=== PATIENT | female | born 1975 | race Caucasian/White ===

== ENCOUNTER 2019-07-09 14:00 | Outpatient (RCR) | payer MEDICAID, SELFPAY | END 2019-07-29 14:25 | disposition home or self-care (01) | LOC: PT.CARL 14:00 | PROVIDERS: Visit Provider Nurse Practitioner Family | DX: M54.5 Low back pain (principal) | CPT/HCPCS: 97014; 97110; 97163; G0283 ==

== ENCOUNTER 2020-07-29 11:33 | Emergency (ER) | payer MEDICAID, SELFPAY ==
[2020-07-29 12:32] VITALS: BP 131/87; PULSE 84; RESP 20; TEMP 37.1; O2SAT 97; BMI 29.0
--- NOTE | 2020-07-29 12:38 | HMH.EDUTC ---
[facility] [place] Clinical Impression: Exposure to COVID-19 virus URI (upper respiratory infection) Qualifiers: URI type: unspecified URI Qualified Code(s): J06.9 - Acute upper respiratory infection, unspecified Contact dermatitis Qualifiers: Contact dermatitis type: unspecified Contact dermatitis trigger: unspecified trigger Qualified Code(s): L25.9 - Unspecified contact dermatitis, unspecified cause Disposition: Home, Self-Care Condition on Discharge: Good Instructions: Contact Dermatitis, DI for Sinusitis, DI for Cough -- Adult, DI for Contact Dermatitis, Azithromycin, Preventing the Spread of Coronavirus Discharge Instructions Additional Instructions: *Monitor Temp, Over the counter Motrin or Tylenol as directed/as needed Tylenol every 4 hours and Motrin every 6 hours (as long as your family doctor has told you that you can take it) for fever or pain. and straight to ER if unable to lower temp less than 101.0 after medication given *Warm salt water gargles may help to soothe the throat *Throat Lozenges *Warm fluids like tea with honey may help to soothe the throat *Sleep elevated *Humidifier/Vaporizer Apply hydrocortisone to area as prescribed Follow up IMMEDIATELY for new or worsening symptoms or no Noticeable improvement over the next 48-72 hours. 911 for difficulty breathing or swallowing ? Humidifier/vaporizer or hot steamy shower ? Inhaler every 4-6 hours as needed like we discussed. If unsure how to use it, ask pharmacist to demonstrate how. Should help open airways and improve cough, wheezing, and shortness of breath You was tested for today for COVID19 your test result should be back in the next 24-48 hours, you may call to the [facility] later today or tomorrow to see if your test results are back and the result [phone] [facility] hours are 9am-9pm You was given a handout with instructions for Self Quarantine and Self isolation for while you wait on test results and what to do if they are positive If you are positive the Health Dept will be contacting you also Prescriptions: Albuterol Sulfate [Proventil-HFA 90mcg/puff Inh] 1 - 2 puffs IH Q4HP PRN #1 inh PRN Reason: Shortness Of Breath Transmission Status: Received by [facility] Hydrocortisone [Hydrocortisone 2.5% Cream 28gm Tube] 1 applicatio TOPICAL BID #1 tube Transmission Status: Received by [facility] Azithromycin [Z-Teo 250mg Tab] 250 mg PO DIRECTED #6 tab Transmission Status: Received by [facility] Referrals: Jana Bush PA [Primary Care Provider] - As needed Forms: Work/School Release Time of Disposition: 12:56 Medical Decision Making - Cesar Inquiry Pt receiving controlled substance: No Cesar was queried for this patient: No Vital Signs: 07/29/20 12:32 07/29/20 13:10 Temperature 98.8 F 98.8 F Temperature Source Oral Oral Pulse Rate 84 Pulse Rate [Radial] 84 Respiratory Rate 20 20 Blood Pressure 131/87 Blood Pressure [Right Arm] 131/87 Blood Pressure Mean [Right Arm] 101 Blood Pressure Source Automatic Cuff Blood Pressure Source [Right Arm] Automatic Cuff Blood Pressure Position Sitting Blood Pressure Position [Right Arm] Sitting 02 Sat by Pulse Oximetry 97 Oxygen Delivery Method Room Air Room Air Orders (Tests/Meds): ED MEDICATIONS Discontinued Medications Generic Name Dose Route Start Last Admin Trade Name Freq PRN Reason Stop Dose Admin Methylprednisolone Sodium Succinate 125 mg 07/29/20 12:42 07/29/20 12:49 Methylprednisolone Sod Succ 125mg Vial IM 07/29/20 12:43 125 mg ONCE ONE Administration ORDERS Category Date Time Status Covid-19 Nasal PCR Sendout [facility] 07/29/20 12:25 [place] [facility] [place] - General Stated complaint: covid exposure Time Seen by Provider: 07/29/20 12:38 Mode of Arrival: Ambulatory Source of Information: Patient Limitations: No Limitations Description of Symptoms (Recalled from Triage Doc. by RN): cough, nausea, diarrhea MARNI
[2020-07-29 13:10] VITALS: BP 131/87; PULSE 84; RESP 20; TEMP 37.1; O2SAT 97
[2020-07-30 10:31] LABS: Covid-19 Nasal PCR Sendout Lex NOT DETECTED
== END 2020-07-29 13:10 | disposition home or self-care (01) ==
PROVIDERS: Emergency Provider Nurse Practitioner; PCP Nurse Practitioner Family
DX: Z20.828 Contact with and (suspected) exposure to other viral communicable diseases (principal); J06.9 Acute upper respiratory infection, unspecified; L25.9 Unspecified contact dermatitis, unspecified cause; Z88.0 Allergy status to penicillin
CPT/HCPCS: 96372; 99202; U0004

== ENCOUNTER → 2021-10-12 11:21 | Outpatient (CLI) | payer MEDICAID, SELFPAY ==
[2021-10-13 09:35] LABS: Covid-19 Nasal PCR Sendout Lex NOT DETECTED
== END ==
PROVIDERS: Visit Provider Nurse Practitioner
DX: Z20.822 Contact with and (suspected) exposure to COVID-19 (principal)
CPT/HCPCS: C9803; U0004; U0005

== ENCOUNTER 2022-08-25 15:54 | Emergency (ER) | payer MEDICAID, SELFPAY ==
[2022-08-25 16:30] VITALS: BP 114/86; PULSE 86; RESP 19; TEMP 36.8; O2SAT 98; BMI 26.2
--- NOTE | 2022-08-25 16:48 | EXP.UTC ---
Discharge Plan Disposition Patient Disposition: Home, Self-Care Condition: Good Prescriptions Prescriptions: New prednisone [prednisone] 20 mg tablet 20 mg PO BID 5 Days Qty: 10 0RF naproxen 500 mg tablet 500 mg PO BID 10 Days Qty: 20 0RF No Action azithromycin 250 MG tablet 250 mg PO DIRECTED Qty: 6 0RF Rx Instructions: Take two (2) tablets on day #1, then one (1) tablet day #2 thru #5 hydrocortisone 28 GM cream 1 applicatio TOPICAL BID Qty: 1 0RF albuterol sulfate 200 PUFFS HFA aerosol inhaler 1 - 2 puffs IH Q4HP PRN (Reason: Shortness Of Breath) Qty: 1 0RF Referrals Follow up/Referrals: Yajaira Soriano APRN [Primary Care Provider] - See instructions Activity Restrictions/Add. Instructions Additional Instructions/Restrictions: Wear splint as often as possible Take Naproxen, Prednisone with food - these medicines will hopefully decrease inflammation If not improving, follow up with PCP for additional testing Clinical Impressions Clinical Impression: Hand pain, right, Swelling of right hand Instructions Patient Instructions: DI for Hand Pain Discharge ED [place]rysta [place] [facility] [place] General Stated complaint: RT wrist pain and numbness Mode of Arrival: Ambulatory Source of Information: Patient Limitations: No Limitations Time Seen by Provider: 08/25/22 16:50 Description of Symptoms (Recalled from Triage Doc. by RN): PATIENT C/O RIGHT HAND SWELLING WITH DECREASED ROM IN FINGERS SINCE LAST NIGHT HEENT Symptoms (Recalled from RN notes): No Resp Symptoms (Recalled from RN notes): No Skin Symptoms (Recalled from RN notes): No MS Symptoms (Recalled from RN notes): Yes Functional Status (Recalled from RN notes): WNL History of Present Illness Provider Complaint: Right hand pain and swelling X 1 day. Started after packing and moving. No injury. Hand is stiff, swollen and she cannot bend her fingers. No known history of carpal tunnel. No known history of arthritis/autoimmune disorder. Onset (ago): day(s) (1) Location: right and upper extremity Radiation: non-radiation Severity: moderate Relieving factors: none Exacerbating factors: none Associated symptoms: denies other symptoms Treatments prior to arrival: splint Related Data Previous Rx's Medication Instructions Recorded albuterol sulfate 90 mcg/actuation 1 - 2 puffs IH Q4HP PRN Shortness 07/29/20 aerosol inhaler Of Breath #1 inh azithromycin 250 mg tablet 250 mg PO DIRECTED #6 tabs 07/29/20 hydrocortisone 2.5 % topical cream 1 applicatio topical BID #1 tube 07/29/20 naproxen 500 mg tablet 500 mg PO BID 10 days #20 tabs 08/25/22 prednisone 20 mg tablet 20 mg PO BID 5 days #10 tabs 08/25/22 Allergies Allergy/AdvReac Type Severity Reaction Status Date / Time cephalexin [From Keflex] Allergy Verified 08/25/22 16:48 paroxetine Allergy Verified 08/25/22 16:48 Penicillins Allergy Verified 08/25/22 16:48 propoxyphene Allergy Verified 08/25/22 16:48 tramadol Allergy Verified 08/25/22 16:48 Worker's Comp Is this a Worker's Comp case?: No [facility] Disclaimer: The information contained in this section may have been updated after the patient was seen, as this information can be updated by other users. Medical History (Updated 08/25/22 @ 17:02 by CHRISTINE Motley) Seizure disorder Surgical History (Updated 08/25/22 @ 16:47 by Carmen oLve RN) History of section History of hysterectomy History of tympanostomy tube placement Social History (Updated 08/25/22 @ 16:47 by Carmen Love RN) Smoking Status: Current every day smoker second hand exposure: Yes alcohol intake: never current occupational status: other Travel in the last 8 weeks: None ROS Obtained: Yes All systems reviewed & no additional complaints except as documented Musculoskeletal Musculoskeletal: Reports arthralgias, Reports joint stiffness and Reports joint swelling
[2022-08-25 16:55] VITALS: BP 114/86; PULSE 86; RESP 19; TEMP 36.8; O2SAT 98
== END 2022-08-25 17:20 | disposition home or self-care (01) ==
PROVIDERS: Emergency Provider Physician Assistant; PCP Nurse Practitioner Family
DX: M79.89 Other specified soft tissue disorders (principal); M79.641 Pain in right hand
CPT/HCPCS: 99212; G0463

== ENCOUNTER 2022-09-30 20:06 | Emergency (ER) | payer MEDICAID, SELFPAY ==
[2022-09-30 20:07] VITALS: BP 108/83; PULSE 65; RESP 16; TEMP 36.8; O2SAT 100; BMI 21.9
--- NOTE | 2022-09-30 20:30 | XR_ITS ---
PROCEDURE INFORMATION: Exam: XR Right Foot Exam date and time: 09/30/2022 8:42 PM Age: 46 years old Clinical indication: Pain; Foot; Right; Additional info: Accident TECHNIQUE: Imaging protocol: Radiologic exam of the Right foot. Views: 1 or 2 views. COMPARISON: No relevant prior studies available. FINDINGS: Bones/joints: Nondisplaced fracture of the 5th metatarsal diaphysis. Soft tissues: Soft tissue edema about the fracture site. IMPRESSION: Nondisplaced fracture of the 5th metatarsal diaphysis.
--- NOTE | 2022-09-30 20:30 | XR_ITS ---
PROCEDURE INFORMATION: Exam: XR Right Ankle Exam date and time: 09/30/2022 8:45 PM Age: 46 years old Clinical indication: Pain; Ankle; Right; Additional info: Accident TECHNIQUE: Imaging protocol: Radiologic exam of the Right ankle. Views: 1 or 2 views. COMPARISON: CR Foot R 09/30/2022 8:42 PM FINDINGS: Bones/joints: Nondisplaced fracture of the 5th metatarsal diaphysis. Soft tissues: Soft tissue edema about the foot the. IMPRESSION: Nondisplaced fracture of the 5th metatarsal diaphysis.
--- NOTE | 2022-09-30 20:49 | PC.NURSE ---
Pt gone to RAD via wheelchair
--- NOTE | 2022-09-30 20:57 | PC.NURSE ---
Pt back from RAD
--- NOTE | 2022-09-30 20:59 | PC.NURSE ---
Pt provided with donovan
--- NOTE | 2022-09-30 21:42 | HMH.EDLOEX ---
Discharge Plan Disposition Patient Disposition: Home, Self-Care Prescriptions Prescriptions: New ketorolac 10 mg tablet 10 mg PO Q8H PRN (Reason: pain) 3 Days Qty: 10 0RF No Action azithromycin 250 MG tablet 250 mg PO DIRECTED Qty: 6 0RF Rx Instructions: Take two (2) tablets on day #1, then one (1) tablet day #2 thru #5 hydrocortisone 28 GM cream 1 applicatio TOPICAL BID Qty: 1 0RF albuterol sulfate 200 PUFFS HFA aerosol inhaler 1 - 2 puffs IH Q4HP PRN (Reason: Shortness Of Breath) Qty: 1 0RF prednisone [prednisone] 20 mg tablet 20 mg PO BID 5 Days Qty: 10 0RF naproxen 500 mg tablet 500 mg PO BID 10 Days Qty: 20 0RF Referrals Follow up/Referrals: Yajaira Soriano APRN [Primary Care Provider] - See instructions Clinical Impressions Clinical Impression: Foot fracture, right Instructions Patient Instructions: DI for Foot Fracture Discharge ED Provider: Ganga Ibarra Lower Extremity Injury HPI General Chief Complaint: Extremity Injury, Lower Stated Complaint: AO09/30/22 RT foot inj Time Seen by Provider: 09/30/22 21:42 Mode of Arrival: Wheelchair Source of Information: Patient and Medical Record Limitations: No Limitations Description of Symptoms (Recalled from ER Triage Doc. by RN): pt states was shutting a door using her rt foot and it twisted. pt c/o rt ankle pain History of Present Illness HPI Narrative: acute injury to rt foot ankle /foot yesterday with pain and swelling and dec wt bearing MD complaint: ankle injury and foot injury Onset (ago): day(s) Injury: Right: ankle and foot Type of Injury: eversion Place: home Severity: moderate Context: walking Associated symptoms: unable to bear weight Other symptoms: none Related Data Previous Rx's Medication Instructions Recorded albuterol sulfate 90 mcg/actuation 1 - 2 puffs IH Q4HP PRN Shortness 07/29/20 aerosol inhaler Of Breath #1 inh azithromycin 250 mg tablet 250 mg PO DIRECTED #6 tabs 07/29/20 hydrocortisone 2.5 % topical cream 1 applicatio topical BID #1 tube 07/29/20 naproxen 500 mg tablet 500 mg PO BID 10 days #20 tabs 08/25/22 prednisone 20 mg tablet 20 mg PO BID 5 days #10 tabs 08/25/22 ketorolac 10 mg tablet 10 mg PO Q8H PRN pain 3 days #10 09/30/22 tabs Allergies Allergy/AdvReac Type Severity Reaction Status Date / Time cephalexin [From Keflex] Allergy Verified 08/25/22 16:48 paroxetine Allergy Verified 08/25/22 16:48 Penicillins Allergy Verified 08/25/22 16:48 propoxyphene Allergy Verified 08/25/22 16:48 tramadol Allergy Verified 08/25/22 16:48 PFSH PFS Disclaimer: The information contained in this section may have been updated after the patient was seen, as this information can be updated by other users. Medical History (Updated 09/30/22 @ 21:57 by Ganga Ibarra MD) Seizure disorder Surgical History (Updated 08/25/22 @ 16:47 by Carmen Love RN) History of section History of hysterectomy History of tympanostomy tube placement Social History (Updated 08/25/22 @ 16:47 by Carmen Love RN) Smoking Status: Current every day smoker second hand exposure: Yes alcohol intake: never current occupational status: other Travel in the last 8 weeks: None ROS Obtained: Yes All systems reviewed & no additional complaints except as documented Physical Exam General General appearance: alert Head Head exam: normocephalic Eye Eye exam: Present PERRL and EOMI ENT ENT exam: Present mucous membranes moist Neck Neck exam: Present trachea midline Respiratory Respiratory exam: Absent respiratory distress Cardiovascular Cardiovascular exam: Present regular rate Expanded Lower Extremity Exam Right: Lower leg exam: Present normal inspection and Achilles tendon intact Ankle exam: Present tenderness and swelling; Absent full ROM Foot/toe exam: Present tenderness, swelling and tenderness at base of 5th metatarsal
[2022-09-30 21:52] VITALS: BP 115/78; PULSE 61; RESP 16; TEMP 36.8; O2SAT 100
== END 2022-09-30 22:03 | disposition home or self-care (01) ==
PROVIDERS: Emergency Provider Emergency Medicine; PCP Nurse Practitioner Family
DX: S92.354A Nondisplaced fracture of fifth metatarsal bone, right foot, initial encounter for closed fracture (principal); X50.0XXA Overexertion from strenuous movement or load, initial encounter
CPT/HCPCS: 29515; 73600; 73620; 99283; 99284

== ENCOUNTER → 2022-10-24 14:23 | Outpatient (CLI) | payer MEDICAID, SELFPAY ==
--- NOTE | 2022-10-24 14:28 | XR_ITS ---
FINAL REPORT CLINICAL HISTORY: R FOOT FX FINDINGS: AP, oblique and lateral views of the right foot were obtained. Comparison is made to an exam dated September 30, 2022. There is a spiral fracture of the 5th metatarsal that has not significantly changed in alignment. There may be minimal callus formation. There is no new abnormality. The joint spaces are preserved. There is persistent dorsal soft tissue edema. IMPRESSION: Fifth metatarsal fracture with possible minimal callus formation. Reviewed, Interpreted and Dictated by Mouna Be MD Transcribed by Gold Bro Authenticated and [facility]
== END ==
PROVIDERS: PCP Physician Assistant; Visit Provider Physician Assistant
DX: S92.901A Unspecified fracture of right foot, initial encounter for closed fracture (principal)
CPT/HCPCS: 73630

== ENCOUNTER 2022-10-24 14:46 | Outpatient (RCR) | payer MEDICAID, SELFPAY | END 2022-10-24 16:00 | disposition home or self-care (01) | LOC: PT 14:46 | PROVIDERS: Visit Provider Physician Assistant | DX: S92.351A Displaced fracture of fifth metatarsal bone, right foot, initial encounter for closed fracture (principal); M79.671 Pain in right foot | CPT/HCPCS: 97760 ==

== ENCOUNTER → 2022-11-03 11:42 | Outpatient (CLI) | payer MEDICAID, SELFPAY ==
--- NOTE | 2022-11-03 11:47 | XR_ITS ---
FINAL REPORT CLINICAL HISTORY: Left wrist pain COMPARISON: None FINDINGS: LEFT WRIST Three views demonstrate no acute fracture or dislocation. The visualized joint spaces are normally aligned. The soft tissues are unremarkable. IMPRESSION: No acute bony abnormality. Reviewed, Interpreted and Dictated by Scott Vazquez III, MD Transcribed by Consuelo Dang Authenticated and [facility]
--- NOTE | 2022-11-03 11:47 | XR_ITS ---
FINAL REPORT CLINICAL HISTORY: Right wrist pain COMPARISON: None FINDINGS: RIGHT WRIST Three views demonstrate no acute fracture or dislocation. The visualized joint spaces are normally aligned. The soft tissues are unremarkable. IMPRESSION: No acute bony abnormality. Reviewed, Interpreted and Dictated by Scott Vazquez III, MD Transcribed by Consuelo Dang Authenticated and [facility]
== END ==
PROVIDERS: PCP Physician Assistant; Visit Provider Orthopaedic Surgery
DX: M25.531 Pain in right wrist (principal); M25.532 Pain in left wrist
CPT/HCPCS: 73110

== ENCOUNTER 2022-11-10 12:37 | Outpatient (RCR) | payer MEDICAID, SELFPAY | END 2022-11-10 13:30 | disposition home or self-care (01) | LOC: PT 12:37 | PROVIDERS: Visit Provider Orthopaedic Surgery | DX: G56.03 Carpal tunnel syndrome, bilateral upper limbs (principal) ==

== ENCOUNTER → 2022-11-30 14:28 | Outpatient (CLI) | payer MEDICAID, SELFPAY ==
--- NOTE | 2022-11-30 14:32 | XR_ITS ---
FINAL REPORT CLINICAL HISTORY: pre op orthopedic surgery. Patient is a smoker. she coughs some. FINDINGS: 2 views of the chest were obtained . The heart is normal in size. The mediastinum is within normal limits. The lungs are clear. There is no pneumothorax. Osseous structures are unremarkable. IMPRESSION: No acute cardiopulmonary process. Reviewed, Interpreted and Dictated by Bryan Veronica MD Transcribed by Angélica Duncan Authenticated and [facility]
[2022-11-30 14:52] LABS: Basophils # 0.1 K/mm3 (0-0.2); Eosinophils # 0.2 K/mm3 (0.0-0.4); Eosinophils % 1.3 % (0.1-12.0); Hematocrit 39.9 % (37.0-47.0); Hemoglobin 13.2 g/dL (12.2-16.2); Lymphocytes # 4.2 K/mm3 (0.7-4.5); Lymphocytes % 37.5 % (10-50); Mean Corpuscular Hemoglobin 28.6 pg (27.0-31.2); Mean Corpuscular Volume 86.5 fl (81-99); Mean Platelet Volume 7.7 fl (7.4-10.4); Monocytes # 0.4 K/mm3 (0.1-1.0); Monocytes % 3.6 % (1.7-9.3); Neutrophils # 6.3 K/mm3 (1.8-7.8); Neutrophils % 56.6 % (37.0-80.0); Platelet Count 352 K/mm3 (142-424); Red Blood Count 4.61 M/mm3 (4.20-5.40); Red Cell Distribution Width 14.8 % (11.5-17.5); White Blood Count 11.2 K/mm3 (4.8-10.8)
[2022-11-30 15:15] LABS: Chloride 106 mmol/L (98-107); Potassium 3.6 mmoL/L (3.5-5.1); Sodium 139 mmol/L (136-145)
[2022-11-30 15:17] LABS: Alanine Aminotransferase 18 U/L (12-78); Aspartate Amino Transferase 19 U/L (14-36); Blood Urea Nitrogen 12 mg/dl (7-17); Estimated Glomerular Filt Rate 89 ml/min (>60); GFR (African American) 108 ML/MIN (>60)
[2022-11-30 15:18] LABS: Albumin Level 3.7 g/dl (3.5-5.0); Albumin/Globulin Ratio 1.4 (1.1-1.8); Alkaline Phosphatase 110 U/L (38-126); Anion Gap 9.6 mEq/L (5-15); Calcium 8.6 mg/dl (8.4-10.2); Carbon Dioxide 27 mmol/L (22.0-30.0); Globulin 2.6 g/dL (1.3-3.2); Glucose 95 mg/dl (74-100); Total Protein,Serum 6.3 g/dl (6.3-8.2)
[2022-11-30 15:19] LABS: Bilirubin,Total 0.1 mg/dl (0.2-1.3)
== END ==
PROVIDERS: PCP Physician Assistant; Visit Provider Orthopaedic Surgery
DX: Z01.818 Encounter for other preprocedural examination (principal); G56.03 Carpal tunnel syndrome, bilateral upper limbs
CPT/HCPCS: 36415; 71046; 80053; 85025

== ENCOUNTER 2022-12-01 06:10 | Day surgery (SDC) | payer MEDICAID, SELFPAY ==
[2022-11-30 12:27] VITALS: BMI 22.4
[2022-12-01 06:24] VITALS: BP 102/52; PULSE 88; RESP 18; TEMP 36.5; O2SAT 96
--- NOTE | 2022-12-01 08:02 | P.PN_ITS ---
[facility] Disclaimer: The information contained in this section may have been updated after the patient was seen, as this information can be updated by other users. Medical History Carpal tunnel syndrome Neuropathy Seizure disorder Sleep apnea Surgical History History of section History of hysterectomy History of tympanostomy tube placement Hx of hand surgery Family History Other No significant family history Social History (Updated 12/01/22 @ 06:35 by Paulette Singh RN) Smoking Status: Current every day smoker tobacco type: cigarettes packs per day: 1 years smoked: 20 second hand exposure: Yes alcohol intake: never substance use type: denies use current occupational status: disabled Travel in the last 8 weeks: None [facility] Anesthesia Checklist Patient Identification Patient Identification: Arm Band and Verbal (Name & ) Structural Data Admitted From: Home Planned Operative Procedure/s: Right Carpal Tunnel Repair Consent for Planned Operative Procedure(s) Verified: Yes Verified Documents: Surgical Consent NPO Status Verified Time NPO: 20:00 Additional verifications Anesthesia Reactions: No Hx Blood Transfusions: No Blood Transfusion Reaction: No Airway Assessment C-Spine Mobility Assessed: Yes TMJ Mobility Assessed: Yes Neurological Assessment Level of Consciousness: Awake, Alert and Appropriate Anesthesia Plan Anesthesia Risk discussed: Yes ASA Class: III Anesthesia Type: MAC
[2022-12-01 08:26] VITALS: TEMP 43
[2022-12-01 08:34] VITALS: BP 107/73; PULSE 63; RESP 17; TEMP 36.2; O2SAT 98
[2022-12-01 08:44] VITALS: BP 117/71; PULSE 77; RESP 15; O2SAT 100
--- NOTE | 2022-12-01 08:47 | EXP.OP.NOTE ---
Date of procedure: 12/01/22 Pre-op Diagnosis:: Right carpal tunnel syndrome Post-op Diagnosis:: Same Procedure performed:: Right endoscopic carpal tunnel release Surgeon:: Sudeep Naik JR, MD [employer] INSTRUCTOR:: John Rubin Anesthesia: MAC Estimated blood loss (mL): 3 Clinical Note:: 47-year-old female with right carpal tunnel syndrome refractory to conservative measures. She had thenar wasting, positive Tinel sign at the wrist. She complained of numbness and tingling which woke her up at night. Having failed prior conservative measures she was interested in more durable intervention. I recommended right endoscopic carpal tunnel release. She was amenable with the plan. We discussed the risk and benefits of surgery. Risks included but were not limited to pain, bleeding, infection, damage to adjacent structures, need for further surgery, wound healing complications, loss of limb, . Patient expressed verbal consent and written consent was obtained for the above procedure. Operative findings:: Transverse carpal ligament release confirmed endoscopically, visually, and via palpation. Operative note:: Patient was identified in preoperative holding. Operative site was marked in indelible ink. History, physical, consent were reviewed and updated. Patient was surrendered to the anesthesia team, taken to the operative suite, placed supine on a well-padded operative table. A nonsterile tourniquet placed on the proximal brachium. Anesthesia was induced. The operative extremity was prepped and draped in the usual sterile fashion. The operative team donned sterile gowns and gloves and a timeout was called. All in attendance agreed regarding the patient's identity, procedure, operative site. Weight-based dose of antibiotics was given prior to incision. I made a transverse incision at the proximal wrist crease proximal to the transverse carpal ligament. I bluntly dissected through skin and subcutaneous tissue with care taken to avoid injuring the palmaris longus. I transected the fascia, inserted a dilating probe deep to the transverse carpal ligament and noted its depth distal to the transverse carpal ligament. I then inserted a cannula and scope, visualize the fibers of the transverse carpal ligament. I took to the distal aspect of the transverse carpal ligament to confirm its location, then with a curved blade under endoscopic visualization, transected the fibers of the transverse carpal ligament and noted that they retracted medially and laterally. I removed the cannula, achieved hemostasis, closed with Monocryl Prineo and Dermabond. Dressings were applied. Counts were correct x2. There were no apparent complications. I was present scrubbed for the entire case. Postoperatively, plan to leave dressing in place for 5 days, then remove all but Prineo. Okay to shower but do not soak wound at that point. Finger mobility, limit weightbearing to 10 pounds until follow-up in 2 weeks at which point I anticipate initiating physical therapy. Condition: stable Disposition: PACU Specimens:: None Complications:: None apparent
[2022-12-01 08:54] VITALS: BP 126/75; PULSE 79; RESP 18; O2SAT 100
[2022-12-01 09:04] VITALS: BP 130/70; PULSE 81; RESP 17; O2SAT 100
--- NOTE | 2022-12-01 09:04 | EXP.ANES.CKL ---
[facility] Disclaimer: The information contained in this section may have been updated after the patient was seen, as this information can be updated by other users. Medical History Carpal tunnel syndrome Neuropathy Seizure disorder Sleep apnea Surgical History History of section History of hysterectomy History of tympanostomy tube placement Hx of hand surgery Family History Other No significant family history Social History (Updated 12/01/22 @ 08:03 by Roni Rubin CRNA) Smoking Status: Current every day smoker tobacco type: cigarettes packs per day: 1 years smoked: 20 second hand exposure: Yes alcohol intake: never substance use type: denies use current occupational status: disabled Travel in the last 8 weeks: None [facility] Anesthesia Checklist Patient Identification Patient Identification: Arm Band and Verbal (Name & ) Structural Data Admitted From: Home Planned Operative Procedure/s: Kyphoplasty Consent for Planned Operative Procedure(s) Verified: Yes Verified Documents: Surgical Consent NPO Status Verified Time NPO: 00:00 Additional verifications Anesthesia Reactions: No Hx Blood Transfusions: No Blood Transfusion Reaction: No Airway Assessment C-Spine Mobility Assessed: Yes TMJ Mobility Assessed: Yes Dentition: Good Dentition Neurological Assessment Level of Consciousness: Awake, Alert and Appropriate Anesthesia Plan Anesthesia Risk discussed: Yes ASA Class: III Anesthesia Type: MAC
== END 2022-12-01 09:05 | disposition home or self-care (01) ==
PROVIDERS: PCP Physician Assistant; Visit Provider Orthopaedic Surgery
PROC: (CPT 64721; principal; 2022-12-01 07:30)
DX: G56.01 Carpal tunnel syndrome, right upper limb (principal)
CPT/HCPCS: 64721; 96374; J2405

== ENCOUNTER 2022-12-26 13:33 | Emergency (ER) | payer MEDICAID, SELFPAY ==
[2022-12-26 13:33] VITALS: BP 124/70; PULSE 87; RESP 17; TEMP 36.6; O2SAT 99; BMI 22.7
--- NOTE | 2022-12-26 14:11 | PC.NURSE ---
notified registration of room assignment for pt
--- NOTE | 2022-12-26 14:23 | XR_ITS ---
FINAL REPORT CLINICAL HISTORY: injury, FELL IN HOLE, RT FOOT PAIN COMPARISON: 10/24/2022 FINDINGS: Right foot Three views were obtained. There has been interval healing of a mid 5th metatarsal fracture. The joint spaces appear normal. No soft tissue abnormality is identified. IMPRESSION: Interval healing of the 5th metatarsal fracture. Reviewed, Interpreted and Dictated by Scott Vazquez III, MD Transcribed by Jackeline Ballard Authenticated and [facility]
[2022-12-26 14:30] VITALS: BP 116/82; PULSE 88; O2SAT 96
[2022-12-26 15:00] VITALS: BP 117/72; PULSE 86; O2SAT 98
--- NOTE | 2022-12-26 15:55 | PC.NURSE ---
Adult posterior short leg ortho-glass splint applied to patients right lower extremity. pt given educations on how to care for splint until follow up with orthopaedics. pt given crutches and education on how to use them. no other questions at this time.
--- NOTE | 2022-12-26 16:25 | HMH.EDLOEX ---
Discharge Plan Disposition Patient Disposition: Home, Self-Care Condition: Good Prescriptions Prescriptions: New hydrocodone-acetaminophen 5-325 mg tablet 1 tab PO Q6H PRN (Reason: pain) Qty: 20 0RF ibuprofen 600 mg tablet 600 mg PO Q6H PRN (Reason: fever or pain) Qty: 40 0RF No Action levetiracetam [Keppra] 1,000 mg tablet 1,000 mg PO BID gabapentin 800 mg tablet 800 mg PO QID amitriptyline 100 mg tablet 300 mg PO HS Zyrtec 10 mg capsule 10 mg PO DAILY PRN (Reason: allergies) omeprazole 40 mg capsule,delayed release(DR/EC) 40 mg PO DAILY oxycodone 5 mg tablet 5 mg PO Q4H PRN (Reason: pain) Qty: 30 0RF clindamycin HCl 300 mg capsule 300 mg PO Q8H Qty: 15 0RF Referrals Follow up/Referrals: Krysta Gonzalez PA [Primary Care Provider] - See instructions Clinical Impressions Clinical Impression: Metatarsal fracture Discharge ED Provider: Karina Gardiner Lower Extremity Injury HPI General Chief Complaint: Extremity Injury, Lower Stated Complaint: RT foot pain Time Seen by Provider: 12/26/22 14:20 Mode of Arrival: Ambulatory Limitations: No Limitations Description of Symptoms (Recalled from ER Triage Doc. by RN): pt to ED with right foot pain x 4 days. pt reports she has been in a boot since breaking her right foot in Sep. pt reports she just took her boot off a few days ago and twisted her foot taking her trash to the curb last night with pain rating a 6 at this time History of Present Illness HPI Narrative: Patient is 47yo white female who is here secondary to right foot pain. Patient had fracture to the fifth metatarsal. She wore a boot for at least 2 months. She remove the boot last week and today she went to take the trash out and twisted her right foot. Complaint pain over the fracture was at the fifth metatarsal. Patient denies any other injury or any other complaints MD complaint: foot injury Onset (ago): minute(s) Injury: Right: foot Type of Injury: inversion Place: home Severity: moderate Severity scale (1-10): 8 Relieving factors: nothing Exacerbating factors: weight bearing, movement and palpation Context: walking Other symptoms: none Related Data Home Medications Medication Instructions Recorded Confirmed amitriptyline 100 mg tablet 300 mg PO HS mood 10/24/22 12/15/22 cetirizine 10 mg capsule (Zyrtec) 10 mg PO DAILY PRN allergies 10/24/22 12/15/22 gabapentin 800 mg tablet 800 mg PO QID Pain 10/24/22 12/15/22 levetiracetam 1,000 mg tablet 1,000 mg PO BID seizures 10/24/22 12/15/22 (Keppra) omeprazole 40 mg capsule,delayed 40 mg PO DAILY Acid reflux 11/30/22 12/15/22 release Previous Rx's Medication Instructions Recorded clindamycin HCl 300 mg capsule 300 mg PO Q8H #15 caps 12/01/22 oxycodone 5 mg tablet 5 mg PO Q4H PRN pain #30 tabs 12/01/22 hydrocodone 5 mg-acetaminophen 325 1 tab PO Q6H PRN pain #20 tabs 12/26/22 mg tablet ibuprofen 600 mg tablet 600 mg PO Q6H PRN fever or pain 12/26/22 #40 tabs Allergies Allergy/AdvReac Type Severity Reaction Status Date / Time cephalexin [From Keflex] Allergy Verified 12/15/22 14:51 paroxetine Allergy Verified 12/15/22 14:51 Penicillins Allergy Rash Verified 12/15/22 14:51 propoxyphene Allergy Verified 12/15/22 14:51 tramadol Allergy Seizure Verified 12/15/22 14:51 PFSH PFSH Disclaimer: The information contained in this section may have been updated after the patient was seen, as this information can be updated by other users. Medical History Carpal tunnel syndrome Neuropathy Seizure disorder Sleep apnea Surgical History History of section History of hysterectomy History of tympanostomy tube placement Hx of hand surgery Family History Other No significant family history Social His
[2022-12-26 16:57] VITALS: BP 117/72; PULSE 86; RESP 18; TEMP 36.6; O2SAT 98
== END 2022-12-26 16:57 | disposition home or self-care (01) ==
PROVIDERS: Emergency Provider Emergency Medicine; PCP Physician Assistant
DX: S92.351A Displaced fracture of fifth metatarsal bone, right foot, initial encounter for closed fracture (principal); F17.210 Nicotine dependence, cigarettes, uncomplicated; X50.9XXA Other and unspecified overexertion or strenuous movements or postures, initial encounter
CPT/HCPCS: 29515; 73630; 96372; 99283; 99284

== ENCOUNTER 2022-12-29 09:27 | Day surgery (SDC) | payer MEDICAID, SELFPAY ==
[2022-12-27 10:44] VITALS: BMI 22.7
[2022-12-29 10:58] VITALS: BP 96/60; PULSE 91; RESP 18; TEMP 36.3; O2SAT 99
--- NOTE | 2022-12-29 12:39 | EXP.ANES.CKL ---
[facility] Disclaimer: The information contained in this section may have been updated after the patient was seen, as this information can be updated by other users. Medical History Carpal tunnel syndrome GERD (gastroesophageal reflux disease) Neuropathy Seizure disorder Sleep apnea Surgical History History of Achilles tendon repair History of section History of hysterectomy History of tympanostomy tube placement Hx of hand surgery Family History Other No significant family history Social History Smoking Status: Current every day smoker tobacco type: cigarettes packs per day: 1 years smoked: 20 second hand exposure: Yes alcohol intake: never substance use type: denies use current occupational status: disabled Travel in the last 8 weeks: None [facility] Anesthesia Checklist Patient Identification Patient Identification: Arm Band and Verbal (Name & ) Structural Data Admitted From: Home Planned Operative Procedure/s: CTR Consent for Planned Operative Procedure(s) Verified: Yes NPO Status Verified Time NPO: 00:00 Additional verifications Anesthesia Reactions: No Hx Blood Transfusions: No Blood Transfusion Reaction: No Airway Assessment C-Spine Mobility Assessed: Yes TMJ Mobility Assessed: Yes Dentition: Dentures-poor fitting Neurological Assessment Level of Consciousness: Awake Hx Seizures: Yes Numbness or tingling in extremities: Yes Anesthesia Plan Anesthesia Risk discussed: Yes Anesthesia Plan: Verified ASA Class: II Anesthesia Type: MAC
[2022-12-29 14:26] VITALS: TEMP 43
--- NOTE | 2022-12-29 14:40 | EXP.OP.NOTE ---
Date of procedure: 12/29/22 Pre-op Diagnosis:: Left carpal tunnel syndrome Post-op Diagnosis:: Same Procedure performed:: [id number]: Left endoscopic carpal tunnel release Surgeon:: Sudeep Naik JR, MD [employer] Teacher(s):: Roseline Cabral PA-C Anesthesia: MAC Estimated blood loss (mL): 3 Clinical Note:: 47-year-old female with bilateral carpal tunnel syndrome. She underwent right endoscopic carpal tunnel release, had significant relief in her symptoms. She was interested in contralateral intervention. After discussion of risk, benefits, alternatives, I recommended left endoscopic carpal tunnel release. She was amenable with the plan. We discussed the risk and benefits of surgery. Risks included but were not limited to pain, bleeding, infection, damage to adjacent structures, need for further surgery, wound healing complications, loss of limb, . Patient expressed verbal consent and written consent was obtained for the above procedure. Operative findings:: Transverse carpal ligament release confirmed endoscopically, via palpation and via direct visualization. Operative note:: Patient was identified in preoperative holding. Operative site was marked in indelible ink. History, physical, consent were reviewed and updated. Patient was surrendered to the anesthesia team, taken to the operative suite, placed supine on a well-padded operative table. A nonsterile tourniquet placed on the proximal brachium. Anesthesia was induced. The operative extremity was prepped and draped in the usual sterile fashion. The operative team donned sterile gowns and gloves and a timeout was called. All in attendance agreed regarding the patient's identity, procedure, operative site. Weight-based dose of antibiotics was given prior to incision. I made a transverse incision at the proximal wrist crease proximal to the transverse carpal ligament. I bluntly dissected through skin and subcutaneous tissue with care taken to avoid injuring the palmaris longus. I transected the fascia, inserted a dilating probe deep to the transverse carpal ligament and noted its depth distal to the transverse carpal ligament. I then inserted a cannula and scope, visualize the fibers of the transverse carpal ligament. I took to the distal aspect of the transverse carpal ligament to confirm its location, then with a curved blade under endoscopic visualization, transected the fibers of the transverse carpal ligament and noted that they retracted medially and laterally. I removed the cannula, achieved hemostasis, closed with Monocryl, Prineo and Dermabond. Dressings were applied. Counts were correct x2. There were no apparent complications. I was present scrubbed for the entire case. Postoperatively, plan to leave dressing in place for 5 days, then remove all but Prineo. Okay to shower but do not soak wound at that point. Finger mobility, limit weightbearing to 10 pounds until follow-up in 2 weeks at which point I anticipate initiating physical therapy. Condition: stable Disposition: PACU Specimens:: None Complications:: None apparent
[2022-12-29 14:43] VITALS: BP 115/77; PULSE 92; RESP 18; TEMP 36.6; O2SAT 99
[2022-12-29 14:53] VITALS: BP 107/73; PULSE 88; RESP 17; O2SAT 99
[2022-12-29 15:03] VITALS: BP 118/70; PULSE 86; RESP 18; O2SAT 99
== END 2022-12-29 15:10 | disposition home or self-care (01) ==
PROVIDERS: PCP Physician Assistant; Visit Provider Orthopaedic Surgery
PROC: (CPT 64721; principal; 2022-12-29 10:45)
DX: G56.02 Carpal tunnel syndrome, left upper limb (principal)
CPT/HCPCS: 64721; 96374; J2405

== ENCOUNTER → 2023-01-18 07:19 | Outpatient (CLI) | payer MEDICAID, SELFPAY ==
--- NOTE | 2023-01-18 07:19 | CT_ITS ---
FINAL REPORT CLINICAL HISTORY: Right Foot Pain, healing injury since august FINDINGS: CT RIGHT FOOT WITHOUT CONTRAST TECHNIQUE: Axial, reformatted, and 3D images were obtained of the right foot. This study was performed with techniques to keep radiation doses as low as reasonably achievable, (ALARA). Individualized dose reduction techniques using automated exposure control or adjustment of mA and/or kV according to the patient's size were employed. FINDINGS: There is an oblique fracture of the 5th metatarsal shaft. The fracture is nearly completely healed with the majority of the fracture showing complete bony union. A small portion shows residual lucency and incomplete bony union distally without significant displacement. Remaining osseous structures are intact. There is soft tissue swelling of the forefoot without discrete fluid collection. IMPRESSION: Near complete healing of the 5th metatarsal shaft fracture with the majority of the fracture showing complete bony union. Reviewed, Interpreted and Dictated by Alessia Martino MD Transcribed by Erica Huddleston Authenticated and [facility]
== END ==
PROVIDERS: PCP Physician Assistant; Visit Provider Orthopaedic Surgery
DX: M79.671 Pain in right foot (principal); S92.901A Unspecified fracture of right foot, initial encounter for closed fracture
CPT/HCPCS: 73700

== ENCOUNTER 2023-01-19 11:36 | Outpatient (RCR) | payer MEDICAID, SELFPAY | END 2023-01-19 13:00 | disposition home or self-care (01) | LOC: PT 11:36 | PROVIDERS: Visit Provider Orthopaedic Surgery | DX: M79.671 Pain in right foot (principal); S92.901A Unspecified fracture of right foot, initial encounter for closed fracture | CPT/HCPCS: 97760 ==

== ENCOUNTER 2023-01-23 18:06 | Emergency (ER) | payer MEDICAID, SELFPAY ==
[2023-01-23 18:09] VITALS: BP 134/71; PULSE 108; RESP 16; TEMP 36.7; O2SAT 97; BMI 22.7
[2023-01-23 18:30] VITALS: BP 113/80; PULSE 100; O2SAT 98
[2023-01-23 19:00] VITALS: BP 112/65; PULSE 98; O2SAT 96
[2023-01-23 19:30] VITALS: BP 117/74; PULSE 95; O2SAT 98
--- NOTE | 2023-01-23 19:32 | XR_ITS ---
PROCEDURE INFORMATION: Exam: XR Right Foot Exam date and time: 01/23/2023 7:27 PM Age: 47 years old Clinical indication: Condition or disease; Other: Foot fracture August 2022. ; Additional info: Pain TECHNIQUE: Imaging protocol: Radiologic exam of the right foot. Views: 1 or 2 views. COMPARISON: CT FOOT RT WO CON 07/15/2023 07:22 FINDINGS: Bones/joints: Interval healing of 5th metatarsal oblique fracture. No acute fracture or dislocation. Soft tissues: Normal. IMPRESSION: No acute fracture or dislocation.
--- NOTE | 2023-01-23 19:45 | HMH.EDGENADL ---
Discharge Plan Disposition Patient Disposition: Home, Self-Care Chief Complaint: PAIN Prescriptions Prescriptions: No Action levetiracetam [Keppra] 1,000 mg tablet 1,000 mg PO BID gabapentin 800 mg tablet 800 mg PO QID amitriptyline 100 mg tablet 300 mg PO HS Zyrtec 10 mg capsule 10 mg PO DAILY PRN (Reason: allergies) oxycodone 5 mg tablet 5 mg PO Q8H PRN (Reason: pain) Qty: 20 0RF ibuprofen 600 mg tablet 600 mg PO Q6H PRN (Reason: fever or pain) Qty: 40 0RF omeprazole 40 mg capsule,delayed release(DR/EC) 40 mg PO DAILY oxycodone 5 mg tablet 5 mg PO Q4H PRN (Reason: pain) Qty: 30 0RF oxycodone 5 mg tablet 5 mg PO Q4H PRN (Reason: pain) Qty: 20 0RF clindamycin HCl 300 mg capsule 300 mg PO TID Qty: 15 0RF Referrals Follow up/Referrals: Krysta Gonzalez PA [Primary Care Provider] - See instructions Clinical Impressions Clinical Impression: Foot pain, right Instructions Patient Instructions: DI for Foot Pain Discharge ED Provider: Fred (ED),[facility] Adult HPI General Chief complaint: PAIN Stated complaint: AO/15 cast taken off ain R foot Time Seen by Provider: 01/23/23 19:30 Mode of Arrival: Wheelchair Source of Information: Patient Limitations: No Limitations Description of Symptoms (Recalled from ER Triage Doc. by RN): pt c/o R foot pain, pt report cast removed from foot on Sunday last week. Pt reports original fracture to foot was in august of 2022, states has had 3 casts on foot states not healing. Pt reports pain began lastnight. Pulses + and equal, skin warm and dry. Pt reports unable to move toes 4 and 5 on R foot- reports this is not new has not been able to move then since original fracture in august. History of Present Illness HPI narrative: pt with rt foot pain with hx of foot fx 08/31 and has had ongoing issues and has been out of cast for a few days - has ongoing pain and swelling - no new trauma Onset (ago): day(s) Location: right and lower extremity Severity: moderate Consistency: intermittent Associated symptoms: denies other symptoms Related Data Home Medications Medication Instructions Recorded Confirmed amitriptyline 100 mg tablet 300 mg PO HS mood 10/24/22 01/19/23 cetirizine 10 mg capsule (Zyrtec) 10 mg PO DAILY PRN allergies 10/24/22 01/19/23 gabapentin 800 mg tablet 800 mg PO QID Pain 10/24/22 01/19/23 levetiracetam 1,000 mg tablet 1,000 mg PO BID seizures 10/24/22 01/19/23 (Keppra) omeprazole 40 mg capsule,delayed 40 mg PO DAILY Acid reflux 11/30/22 01/19/23 release Previous Rx's Medication Instructions Recorded oxycodone 5 mg tablet 5 mg PO Q4H PRN pain #30 tabs 12/01/22 ibuprofen 600 mg tablet 600 mg PO Q6H PRN fever or pain 12/26/22 #40 tabs clindamycin HCl 300 mg capsule 300 mg PO TID #15 caps 12/29/22 oxycodone 5 mg tablet 5 mg PO Q4H PRN pain #20 tabs 12/29/22 oxycodone 5 mg tablet 5 mg PO Q8H PRN pain #20 tabs 01/12/23 Allergies Allergy/AdvReac Type Severity Reaction Status Date / Time cephalexin [From Keflex] Allergy Verified 01/19/23 10:46 paroxetine Allergy Verified 01/19/23 10:46 Penicillins Allergy Rash Verified 01/19/23 10:46 propoxyphene Allergy Verified 01/19/23 10:46 tramadol Allergy Seizure Verified 01/19/23 10:46 PFSH PFS Disclaimer: The information contained in this section may have been updated after the patient was seen, as this information can be updated by other users. Medical History Carpal tunnel syndrome GERD (gastroesophageal reflux disease) Neuropathy Seizure disorder Sleep apnea Surgical History History of Achilles tendon repair History of section History of hysterectomy History of tympanostomy tube placement Hx of hand surgery right Family History (Reviewed 01/19/23 @ 10:46 by Lise Esquivel
[2023-01-23 19:58] VITALS: BP 119/72; PULSE 91; RESP 16; TEMP 36.7; O2SAT 98
== END 2023-01-23 20:00 | disposition home or self-care (01) ==
PROVIDERS: Emergency Provider Emergency Medicine; PCP Physician Assistant
DX: M79.671 Pain in right foot (principal); F17.210 Nicotine dependence, cigarettes, uncomplicated
CPT/HCPCS: 73620; 99283

== ENCOUNTER 2023-04-09 13:23 | Emergency (ER) | payer MEDICAID, SELFPAY ==
[2023-04-09] VITALS (8 sets, daily range): BP systolic 124–153; BP diastolic 71–91; PULSE 78–93; RESP 18–20; TEMP 36.7; O2SAT 96–100; BMI 23.5
--- NOTE | 2023-04-09 13:49 | HMH.EDGENADL ---
Discharge Plan Disposition Chief Complaint: Back Pain/Injury Prescriptions Prescriptions: No Action levetiracetam [Keppra] 1,000 mg tablet 1,000 mg PO BID gabapentin 800 mg tablet 800 mg PO QID Zyrtec 10 mg capsule 10 mg PO DAILY PRN (Reason: allergies) lidocaine 5 % adhesive patch,medicated 1 patch topical DAILY Qty: 30 2RF Rx Instructions: leave on most painful area for up to 12 hrs amitriptyline 100 mg tablet 300 mg PO HS Qty: 270 0RF acetaminophen-codeine 300-30 mg tablet 1 tab PO BID PRN (Reason: pain) Qty: 60 0RF ibuprofen 600 mg tablet 600 mg PO Q6H PRN (Reason: fever or pain) Qty: 40 0RF omeprazole 40 mg capsule,delayed release(DR/EC) 40 mg PO DAILY Referrals Follow up/Referrals: Krysta Gonzalez PA [Primary Care Provider] - See instructions Instructions Patient Instructions: DI for Low Back Pain Discharge ED Provider: Osorio Kern General Adult HPI General Chief complaint: Back Pain/Injury Stated complaint: rt side back and leg pain, no accident Time Seen by Provider: 04/09/23 13:27 Mode of Arrival: Ambulatory Source of Information: Patient Limitations: No Limitations Description of Symptoms (Recalled from ER Triage Doc. by RN): Patient reports right sided lower back pain that radiates down her right leg for a couple of days. Denies any urinary or bowel problems. History of Present Illness HPI narrative: Is a 47-year-old female with history of rheumatoid arthritis and seizure disorder, as well as remote low back pain and sciatica presenting with right-sided back pain. Patient states she was sitting at home after waking up with severe right back pain. Starts in her right buttock and radiates down the back of her leg. Made worse by straightening her leg and bearing weight, made better by resting, mild hip and knee flexion. No bowel or bladder dysfunction, saddle anesthesia, weakness. No sensory deficits. No known trauma. Related Data Home Medications Medication Instructions Recorded Confirmed cetirizine 10 mg capsule (Zyrtec) 10 mg PO DAILY PRN allergies 10/24/22 01/24/23 gabapentin 800 mg tablet 800 mg PO QID Pain 10/24/22 01/24/23 levetiracetam 1,000 mg tablet 1,000 mg PO BID seizures 10/24/22 01/24/23 (Keppra) omeprazole 40 mg capsule,delayed 40 mg PO DAILY Acid reflux 11/30/22 01/24/23 release Previous Rx's Medication Instructions Recorded ibuprofen 600 mg tablet 600 mg PO Q6H PRN fever or pain 12/26/22 #40 tabs lidocaine 5 % topical patch 1 patch topical DAILY #30 ea 01/24/23 amitriptyline 100 mg tablet 300 mg PO HS mood #270 tabs 03/27/23 acetaminophen 300 mg-codeine 30 mg 1 tab PO BID PRN pain #60 tabs 03/29/23 tablet Allergies Allergy/AdvReac Type Severity Reaction Status Date / Time cephalexin [From Keflex] Allergy Verified 01/24/23 13:06 paroxetine Allergy Verified 01/24/23 13:06 Penicillins Allergy Rash Verified 01/24/23 13:06 propoxyphene Allergy Verified 01/24/23 13:06 tramadol Allergy Seizure Verified 01/24/23 13:[address] [facility] Disclaimer: The information contained in this section may have been updated after the patient was seen, as this information can be updated by other users. Medical History Carpal tunnel syndrome GERD (gastroesophageal reflux disease) Neuropathy Seizure disorder Sleep apnea Surgical History History of Achilles tendon repair History of section History of hysterectomy History of tympanostomy tube placement Hx of hand surgery right Family History Other No significant family history Social History Smoking Status: Current every day smoker tobacco type: cigarettes packs per day: 1 years smoked: 20 second hand exposure: Y
--- NOTE | 2023-04-09 15:22 | PC.NURSE ---
NURSE VARGHESE ROUNDED ON PT
--- NOTE | 2023-04-09 15:36 | PC.NURSE ---
PT AMBULATED TO RESTROOM
--- NOTE | 2023-04-09 16:27 | HMH.EDGENADL ---
Discharge Plan Disposition Patient Disposition: Home, Self-Care Prescriptions Prescriptions: New ibuprofen 800 mg tablet 800 mg PO TID PRN (Reason: pain) 7 Days Qty: 20 0RF cyclobenzaprine 5 mg tablet 5 mg PO TID PRN (Reason: muscle spasm) 5 Days Qty: 15 0RF No Action levetiracetam [Keppra] 1,000 mg tablet 1,000 mg PO BID gabapentin 800 mg tablet 800 mg PO QID Zyrtec 10 mg capsule 10 mg PO DAILY PRN (Reason: allergies) lidocaine 5 % adhesive patch,medicated 1 patch topical DAILY Qty: 30 2RF Rx Instructions: leave on most painful area for up to 12 hrs amitriptyline 100 mg tablet 300 mg PO HS Qty: 270 0RF acetaminophen-codeine 300-30 mg tablet 1 tab PO BID PRN (Reason: pain) Qty: 60 0RF ibuprofen 600 mg tablet 600 mg PO Q6H PRN (Reason: fever or pain) Qty: 40 0RF omeprazole 40 mg capsule,delayed release(DR/EC) 40 mg PO DAILY Referrals Follow up/Referrals: Krysta Gonzalez PA [Primary Care Provider] - See instructions Activity Restrictions/Add. Instructions Additional Instructions/Restrictions: You have no evidence clinically of any STEREOTYPE CASTER compression specifically cauda equina syndrome. Please return with any urinary retention, urine or bowel incontinence, numbness between your legs, lower extremity paralysis, fevers or other concerns. I recommend you follow-up closely with your primary care doctor to get an outpatient MRI and follow-up with a spine surgeon if you are not improving in several weeks. Physical therapy may be of benefit to you as well. Long-acting steroids were given to you in the emergency department today. In general we do not treat this condition emergently with controlled substances please take your [id number] medications and prescribed muscle relaxer as needed. Clinical Impressions Clinical Impression: Sciatica Instructions Patient Instructions: DI for Low Back Pain Discharge ED Provider: Osorio Kern General Adult HPI <Delio Hudson MD - Last Filed: 04/09/23 16:28> General Chief complaint: Back Pain/Injury Stated complaint: rt side back and leg pain, no accident Time Seen by Provider: 04/09/23 13:27 Mode of Arrival: Ambulatory Source of Information: Patient Limitations: No Limitations Description of Symptoms (Recalled from ER Triage Doc. by RN): Patient reports right sided lower back pain that radiates down her right leg for a couple of days. Denies any urinary or bowel problems. Related Data Home Medications Medication Instructions Recorded Confirmed cetirizine 10 mg capsule (Zyrtec) 10 mg PO DAILY PRN allergies 10/24/22 01/24/23 gabapentin 800 mg tablet 800 mg PO QID Pain 10/24/22 01/24/23 levetiracetam 1,000 mg tablet 1,000 mg PO BID seizures 10/24/22 01/24/23 (Keppra) omeprazole 40 mg capsule,delayed 40 mg PO DAILY Acid reflux 11/30/22 01/24/23 release Previous Rx's Medication Instructions Recorded ibuprofen 600 mg tablet 600 mg PO Q6H PRN fever or pain 12/26/22 #40 tabs lidocaine 5 % topical patch 1 patch topical DAILY #30 ea 01/24/23 amitriptyline 100 mg tablet 300 mg PO HS mood #270 tabs 03/27/23 acetaminophen 300 mg-codeine 30 mg 1 tab PO BID PRN pain #60 tabs 03/29/23 tablet cyclobenzaprine 5 mg tablet 5 mg PO TID PRN muscle spasm 5 04/09/23 days #15 tabs ibuprofen 800 mg tablet 800 mg PO TID PRN pain 7 days #20 04/09/23 tabs Allergies Allergy/AdvReac Type Severity Reaction Status Date / Time cephalexin [From Keflex] Allergy Verified 01/24/23 13:06 paroxetine Allergy Verified 01/24/23 13:06 Penicillins Allergy Rash Verified 01/24/23 13:06 propoxyphene Allergy Verified 01/24/23 13:06 tramadol Allergy Seizure Verified 01/24/23 13:06 <Osorio Kern MD - Last Filed: 04/10/23 07:06> History of Present Illness HPI narrative: This is a 47-year-old female with history of chronic back pain presenting with right lower extremity pain. Patient states she started having ba
== END 2023-04-09 16:50 | disposition home or self-care (01) ==
PROVIDERS: Emergency Provider Emergency Medicine; PCP Physician Assistant
DX: M54.41 Lumbago with sciatica, right side (principal); F17.210 Nicotine dependence, cigarettes, uncomplicated
CPT/HCPCS: 96372; 99283

== ENCOUNTER 2023-05-09 14:19 | Emergency (ER) | payer MEDICAID, SELFPAY ==
[2023-05-09 14:20] VITALS: BP 110/69; PULSE 107; RESP 18; TEMP 36.7; O2SAT 98; BMI 25.0
--- NOTE | 2023-05-09 15:30 | EXP.UTC ---
Discharge Plan Disposition Patient Disposition: Home, Self-Care Condition: Good Prescriptions Prescriptions: New polymyxin B sulf-trimethoprim [Polytrim] 10,000 unit- 1 mg/mL drops 2 drp ophthalmic (eye) Q6H 7 Days Qty: 10 0RF Rx Instructions: both eyes while awake; do not exceed 6 doses in 24 hours No Action levetiracetam [Keppra] 1,000 mg tablet 1,000 mg PO BID gabapentin 800 mg tablet 800 mg PO QID Zyrtec 10 mg capsule 10 mg PO DAILY PRN (Reason: allergies) lidocaine 5 % adhesive patch,medicated 1 patch topical DAILY Qty: 30 2RF Rx Instructions: leave on most painful area for up to 12 hrs amitriptyline 100 mg tablet 300 mg PO HS Qty: 270 0RF acetaminophen-codeine 300-30 mg tablet 1 tab PO BID PRN (Reason: pain) Qty: 60 0RF ibuprofen 600 mg tablet 600 mg PO Q6H PRN (Reason: fever or pain) Qty: 40 0RF omeprazole 40 mg capsule,delayed release(DR/EC) 40 mg PO DAILY ibuprofen 800 mg tablet 800 mg PO TID PRN (Reason: pain) 7 Days Qty: 20 0RF cyclobenzaprine 5 mg tablet 5 mg PO TID PRN (Reason: muscle spasm) 5 Days Qty: 15 0RF Referrals Follow up/Referrals: Krysta Gonzalez PA [Primary Care Provider] - See instructions Activity Restrictions/Add. Instructions Additional Instructions/Restrictions: Use drops as prescribed Follow up with your Eye Doctor if no improvement or any worsening of symptoms Clean matting from eyes with warm water and baby shampoo Return if needed Straight to ER if any life threatening symptoms Clinical Impressions Clinical Impression: Conjunctivitis Qualifiers: Conjunctivitis type: unspecified Laterality: bilateral Qualified Code(s): H10.9 - Unspecified conjunctivitis Instructions Patient Instructions: Conjunctivitis, DI for Conjunctivitis, Polymyxin B and Trimethoprim Ophthalmic Discharge ED Provider: Ayla Hays [facility] General Stated complaint: both eyes are sore, blurred vision Mode of Arrival: Ambulatory Source of Information: Patient Limitations: No Limitations Time Seen by Provider: 05/09/23 15:32 Description of Symptoms (Recalled from Triage Doc. by RN): Complaint of bilateral eye pain that started 3 days ago. HEENT Symptoms (Recalled from RN notes): Yes Resp Symptoms (Recalled from RN notes): No Skin Symptoms (Recalled from RN notes): No MS Symptoms (Recalled from RN notes): No Functional Status (Recalled from RN notes): wnl History of Present Illness Provider Complaint: Patient states that she has been having redness, drainage, matting and irritation to both eyes for the last 3 days State that when she wakes up they are matted shut and she has to clean them to get them open States that she is having some drainage from them all day so today she came in to get checked thinking she may have pink eye Related Data Home Medications Medication Instructions Recorded Confirmed cetirizine 10 mg capsule (Zyrtec) 10 mg PO DAILY PRN allergies 10/24/22 01/24/23 gabapentin 800 mg tablet 800 mg PO QID Pain 10/24/22 01/24/23 levetiracetam 1,000 mg tablet 1,000 mg PO BID seizures 10/24/22 01/24/23 (Keppra) omeprazole 40 mg capsule,delayed 40 mg PO DAILY Acid reflux 11/30/22 01/24/23 release Previous Rx's Medication Instructions Recorded ibuprofen 600 mg tablet 600 mg PO Q6H PRN fever or pain 12/26/22 #40 tabs lidocaine 5 % topical patch 1 patch topical DAILY #30 ea 01/24/23 amitriptyline 100 mg tablet 300 mg PO HS mood #270 tabs 03/27/23 acetaminophen 300 mg-codeine 30 mg 1 tab PO BID PRN pain #60 tabs 03/29/23 tablet cyclobenzaprine 5 mg tablet 5 mg PO TID PRN muscle spasm 5 04/09/23 days #15 tabs ibuprofen 800 mg tablet 800 mg PO TID PRN pain 7 days #20 04/09/23 tabs polymyxin B sulfate 10,000 2 drp ophthalmic (eye) Q6H 7 days 05/09/23 unit-trimethoprim 1 mg/mL eye #10 mL drops (Polytrim) Allergies Allergy/AdvReac Type Severity Reaction Status Date / Time cephalexin [Fr
[2023-05-09 15:50] VITALS: BP 110/69; PULSE 107; RESP 18; TEMP 36.7; O2SAT 98
== END 2023-05-09 15:50 | disposition home or self-care (01) ==
PROVIDERS: Emergency Provider Nurse Practitioner; PCP Physician Assistant
DX: H10.33 Unspecified acute conjunctivitis, bilateral (principal); F17.210 Nicotine dependence, cigarettes, uncomplicated; K21.9 Gastro-esophageal reflux disease without esophagitis; G47.30 Sleep apnea, unspecified; G40.909 Epilepsy, unspecified, not intractable, without status epilepticus
CPT/HCPCS: 99212; 99214; G0463

== ENCOUNTER 2024-12-04 18:16 | Emergency (ER) | payer MEDICAID, SELFPAY ==
[2024-12-04 18:42] VITALS: BP 129/68; PULSE 60; RESP 18; TEMP 36.7; O2SAT 100; BMI 23.5
[2024-12-04 21:12] VITALS: BP 139/77; PULSE 103; RESP 15; TEMP 36.7; O2SAT 97
--- NOTE | 2024-12-04 21:21 | PC.NURSE ---
Patient refuses IV; states she only wants a scan
[2024-12-04 21:54] VITALS: BP 000/00; PULSE 0; RESP 0; TEMP -17.7; TEMP 0; O2SAT 0
--- NOTE | 2024-12-06 08:17 | ED_ITS ---
Discharge Plan Disposition Patient Disposition: Eloped Chief Complaint: Seizure Prescriptions Prescriptions: No Action levetiracetam [Keppra] 1,000 mg tablet 1,000 mg PO BID gabapentin 800 mg tablet 800 mg PO QID Zyrtec 10 mg capsule 10 mg PO DAILY PRN (Reason: allergies) lidocaine 5 % adhesive patch,medicated 1 patch topical DAILY Qty: 30 2RF Rx Instructions: leave on most painful area for up to 12 hrs acetaminophen-codeine 300-30 mg tablet 1 tab PO BID PRN (Reason: pain) Qty: 60 0RF amitriptyline 100 mg tablet See Rx Instructions .ROUTE .COMPLEX Qty: 270 2RF Dose Instruction: TAKE 3 TABLETS 1 TIME EACH DAY IN THE EVENING Rx Instructions: TAKE 3 TABLETS 1 TIME EACH DAY IN THE EVENING omeprazole 40 mg capsule,delayed release(DR/EC) See Rx Instructions .ROUTE .COMPLEX Qty: 90 3RF Dose Instruction: TAKE 1 CAPSULE 1 TIME EACH DAY Rx Instructions: TAKE 1 CAPSULE 1 TIME EACH DAY ibuprofen 600 mg tablet 600 mg PO Q6H PRN (Reason: fever or pain) Qty: 40 0RF ibuprofen 800 mg tablet 800 mg PO TID PRN (Reason: pain) 7 Days Qty: 20 0RF cyclobenzaprine 5 mg tablet 5 mg PO TID PRN (Reason: muscle spasm) 5 Days Qty: 15 0RF polymyxin B sulf-trimethoprim [Polytrim] 10,000 unit- 1 mg/mL drops 2 drp ophthalmic (eye) Q6H 7 Days Qty: 10 0RF Rx Instructions: both eyes while awake; do not exceed 6 doses in 24 hours Referrals Follow up/Referrals: Krysta Gonzalez PA [Primary Care Provider] - See instructions Clinical Impressions Clinical Impression: Eloped from emergency department Instructions Patient Instructions: DI for Seizure Disorder -- Adult, DI for Seizure (Not Epilepsy/Seizure Disorder), DI for Seizure Disorder -- Child Print Language Print Language: Surinamese Discharge ED Provider: Osorio Kern General Adult HPI General Chief complaint: Seizure Stated complaint: AO 3-27 two seizures today Time Seen by Provider: 12/04/24 18:16 Mode of Arrival: Ambulatory Source of Information: Patient Description of Symptoms (Recalled from ER Triage Doc. by RN): Pt presents with c/o having 2 seizures today back to back that lasted approx 5 minutes. pt was attempting to get in her vehicle when she had the seizure. pt requests that her head be checked due to having abrasions to the right side of her face. pt is compliant with her keppra (800mg BID). Pt states she has had a headache for week and has not had relief after trying ibuprofen. Related Data Home Medications ?Medication ?Instructions ?Recorded ?Confirmed cetirizine 10 mg capsule (Zyrtec) 10 mg PO DAILY PRN allergies 10/24/22 01/24/23 gabapentin 800 mg tablet 800 mg PO QID Pain 10/24/22 01/24/23 levetiracetam 1,000 mg tablet 1,000 mg PO BID seizures 10/24/22 01/24/23 (Keppra) Previous Rx's ?Medication ?Instructions ?Recorded ibuprofen 600 mg tablet 600 mg PO Q6H PRN fever or pain 12/26/22 #40 tabs lidocaine 5 % topical patch 1 patch topical DAILY #30 ea 01/24/23 acetaminophen 300 mg-codeine 30 mg 1 tab PO BID PRN pain #60 tabs 03/29/23 tablet cyclobenzaprine 5 mg tablet 5 mg PO TID PRN muscle spasm 5 04/09/23 days #15 tabs ibuprofen 800 mg tablet 800 mg PO TID PRN pain 7 days #20 04/09/23 tabs polymyxin B sulfate 10,000 2 drp ophthalmic (eye) Q6H 7 days 05/09/23 unit-trimethoprim 1 mg/mL eye #10 mL drops (Polytrim) amitriptyline 100 mg tablet See Rx Instructions .Route 06/27/23 .COMPLEX #270 tabs omeprazole 40 mg capsule,delayed See Rx Instructions .Route 11/27/23 release .COMPLEX #90 caps Allergies Allergy/AdvReac Type Severity Reaction Status Date / Time cephalexin (From Keflex) Allergy Verified 01/24/23 13:06 paroxetine Allergy Verified 01/24/23 13:06 Penicillins Allergy Rash Verified 01/24/23 13:06 propoxyphene Allergy Verified 01/24/23 13:06 tramadol Allergy Seizure Verified 01/24/23 13:06 [facility] Disclaimer: The information contained in this section may have been updated after the patient was seen, as this information can be updated by other users. Medical History Carpal tunnel syndrome GERD (gastroesophageal reflux disease) Neuropathy Seizure disorder Sleep apnea Surgical History History of Achilles tendon repair History of section History of hysterectomy History of tympanostomy tube placement Hx of hand surgery right Family History Other No significant family history Social History Smoking Status: Never smoker years smoked: 20 second hand exposure: Yes alcohol intake: never substance use type: denies use current occupational status: disabled Travel in the last 8 weeks: None Have you lived/traveled outside [place] in past 30 days?: No Contact w/someone who lives/traveled outside [place] past 30 days?: No Exposure to someone with infectious disease in past 14 days?: No Do you have a fever (greater than 100.4 F or 38 C)?: No Have you tested positive for COVID-19: No Exposed to someone with COVID-19 in past 14 days?: No Do you have a sore throat?: No Do you have a cough?: No Do you have any weakness?: No Do you have any diarrhea?: No Are you experiencing any unusual bleeding?: No Do you have any muscle aches/pain?: No Do you have any abdominal pain?: No Are you experiencing loss of taste or smell?: No Other Medical History Have you received the Pneumonia Vaccine: No ROS Obtained: Yes other Physical Exam General General appearance: other Respiratory Respiratory exam: Present other Cardiovascular Cardiovascular exam: Present other Neurological Exam Neurological exam: Present other Medical Decision Making Medical Records Screening: Per USPSTF and CDC recommendations, given the prevalence of disease in our region, it is our hospital?s policy to screen for HIV and viral Hepatitis for all patients aged 18 and over and those with ongoing risk factors. Cesar Inquiry Pt receiving controlled substance: No Vital Signs: 12/04/24 18:42 12/04/24 21:12 12/04/24 21:54 Temperature 98.1 F 98.0 F 0 F L Temperature Source Temporal Artery Scan Oral Pulse Rate 103 H 0 L Pulse Rate [Right] 60 Respiratory Rate 18 15 0 L Blood Pressure 139/77 000/00 L Blood Pressure [Right Arm] 129/68 Blood Pressure Mean [Right Arm] 88 Blood Pressure Source Manual Cuff/ Auscultation Blood Pressure Source [Right Arm] Automatic Cuff Blood Pressure Position Sitting Blood Pressure Position [Right Arm] Sitting 02 Sat by Pulse Oximetry 100 97 Oxygen Delivery Method Room Air Room Air Medical Decision Narrative: Patient eloped prior to my evaluation due wait time secondary to extreme volumes and critical care in the emergency department. Critical Care Critical Care Time Critical Care Time: No
== END 2024-12-04 21:55 | disposition left against medical advice (07) ==
PROVIDERS: Emergency Provider Emergency Medicine; PCP Physician Assistant
DX: Z53.21 Procedure and treatment not carried out due to patient leaving prior to being seen by health care provider (principal)

== ENCOUNTER 2025-02-10 23:08 | Emergency (ER) | payer MEDICAID, SELFPAY ==
--- NOTE | 2025-02-10 23:17 | XR_ITS ---
PROCEDURE INFORMATION: Exam: XR Chest Exam date and time: 02/10/2025 11:16 PM Age: 49 years old Clinical indication: Cough and wheezing; Additional info: Cough wheezing TECHNIQUE: Imaging protocol: Radiologic exam of the chest. Views: 2 views. COMPARISON: CR XR CHEST 2V 11/30/2022 2:34 PM FINDINGS: Lungs: Unremarkable. No consolidation. Pleural spaces: Unremarkable. No pleural effusion. No pneumothorax. Heart/Mediastinum: Unremarkable. No cardiomegaly. Bones/joints: Unremarkable. IMPRESSION: No acute findings.
[2025-02-10] MEDS: predniSONE 20MG TAB 40 MG PO (23:21)
[2025-02-10] MEDS: ALBUTEROL-HFA 90MCG/PUFF INHALER 8GM 4 PUFF IH (23:21)
[2025-02-10] MEDS: AEROCHAMBER/OPTIHALER 1 UNIT MC (23:22)
[2025-02-10 23:25] VITALS: BP 160/102; PULSE 102; RESP 18; TEMP 36.8; O2SAT 95; BMI 25.0
--- OUTSIDE RECORDS SUMMARY | 2025-02-10 23:27 | XMS_ITS | Data Portability ---
Author Organization [facility] & TAWNYA Anguiano ADMIN Address [address] [place] [address] Care Team Providers Care Window Treatment Installer Name Role Phone ISABELLE EJTER Primary Care Provider Assessment No assessment recorded. Plan of Treatment Reminders Order Date Submit Date Provider Last Modified By Organization Details Last Modified Time Details Appointments None recorded. Lab None recorded. Referral None recorded. Procedures None recorded. Surgeries None recorded. Imaging None recorded. Medication Orders gabapentin 800 mg tablet 2023 024 [facility], [address] [place] [address], [id number], 4 12:33:26 ibuprofen 800 mg tablet 2023 024 [facility], [address] [place] [address], [id number], 4 16:02:56 levetiracet am 750 mg tablet 2023 024 [facility], [address] [place] [address], [id number], 4 12:33:27 gabapentin 800 mg tablet 2021 022 [facility], [address] [place] [address], [id number], 2 13:41:08 levetiracet am ER 500 mg tablet,exte nded release 24 hr 2021 022 [facility], [address] [place] [address], [id number], 3 13:53:47 Patient TargetsNo targets recorded. Patient InstructionsNo instructions recorded. Reason for Referral None Reported. Results Created Date Observation Date Name Description Value Unit Range Abnormal Flag Note LastModifiedBy Organization Detail LastModifiedTime 09/30/19 23 09/30/2022 imagi ng inter preta tion No observ ation record ed. [address] [place], [address], 10/02/2022 12:58:56 09/30/19 23 09/30/2022 imagi ng inter preta tion No observ ation record ed. [address] [place], [address], 10/02/2022 12:59:06 Result Notes None recorded. Problems Name Problem SNOMED Code Status Onset Date Resolution Date Notes Provider Name and Address Organization Details Recorded Time Seizure disorder 052986379 Active 2021 Rosy Nunez DO [address] [place], [address] , [facility] - [facility] & [place] 2 15:01:43 Chronic low back pain 137752816 Active 2021 Rosy Nunez DO [address] [place], [address] , [facility] - [facility] & [place] 2 15:01:53 Pain in right hand 04903799379505 9 Active 2021 Rosy Nunez DO [address] [place], [address] , [place] - [facility] & [place] 2 15:02:01 Carpal tunnel syndrome of right wrist 48372254989112 8 Active 2021 Rosy Nunez DO [address] , [place], [address] , [facility] - [facility] & [place] 2 11:33:49 Problem Notes None recorded. Procedures Surgical History Date Name Laterality Status Provider Name and Address Organization Details Recorded Time 02/27/20 24 EMG/ Nerve Conduction Study completed Rosy Nunez DO [address] , [place], [address], [facility] - [facility] & [place] 02/27/2024 09:38:52 02/29/20 23 EMG/ Nerve Conduction Study completed Rosy Nunez [address] [place], [place], [address], [facility] - [facility] & [place] 02/28/2023 14:08:00 09/10/19 23 Carpal tunnel surgery completed Jenniffer Grewalamelia [place] - [facility] & [place] 02/28/2023 13:54:57 08/31/20 22 EMG/ Nerve Conduction Study completed Rosy NunezDO [address] [place], [address], [facility] - [facility] & [place] 08/31/2022 13:51:32 tonsillectomy completed Rosy NunezDO [address] [place], [address], [facility] - [facility] & [place] 08/28/2022 14:52:48 hysterectomy completed Rosy NunezDO [address] [place], [address], [facility] - [facility] & [place] 08/28/2022 14:52:56 open reduction of fracture of ankle with internal fixation completed Rosy NunezDO [address] [place], [address], [facility] - [facility] & [place] 08/28/2022 14:53:07 Oral surgery procedure completed Rosy NunezDO [address] [place], [address], [facility] - [facility] & [place] 08/28/2022 14:53:20 Imaging Results None recorded. Procedure Notes None recorded. Medical Equipment None Reported. Allergies Allergen ID Allergen Name Allergen Category Reaction Reaction Severity Criticality Documentation Date Start Date Code Code System Note Provider Name and Address Organization Details Recorded Time 97480 Product containin g penicilli n (product) medicatio n rash Not available Not available 08/28/2022 16404 8001 SNOMED Rosy Nunez DO [address], [place], [address], [facility] - [facility] & [place] 2 14:50:28 84182 penicilli n G Not available Not available Not available Not available 02/28/2023 7980 RxNorm Jenniffer lundy, [place] [facility] [place] 3 13:52:51 Medications Name Sig Start Date Stop Date Status Note LastModified by Organization Details LastModified Time promethazine -DM 6.25 mg-15 mg/5 mL oral syrup TAKE 5 ML (1 TEASPOON FUL) EVERY 6 HOURS NEEDED 08/29 completed Not Available Not Available Not Available cetirizine 10 mg tablet TAKE 1 TABLET 1 TIME EACH DAY 02/26 completed Not Available Not Available Not Available azithromycin 250 mg tablet TAKE 2 TABLETS ON THE FIRST DAY, THEN TAKE 1 TABLET EACH DAY ON THE NEXT 4 DAYS. 08/29 completed Not Available Not Available Not Available ibuprofen 800 mg tablet TAKE 1 TABLET 2 TIMES EACH DAY NEEDED active Not Available Not Available No t Available levetiraceta m 500 mg tablet TAKE 1 TABLET 2 TIMES EACH DAY 02/26 completed Not Available Not Available Not Available prednisone 20 mg tablet TAKE 1 TABLET 2 TIMES EACH DAY FOR 5 DAYS 08/29 completed Not Available Not Available Not Available omeprazole 40 mg capsule,viviana yed release TAKE 1 CAPSULE 1 TIME EACH DAY active Not Available Not Available No t Available gabapentin 800 mg tablet TAKE 1 TABLET 4 TIMES EACH DAY active Not Available Not Available No t Available Siltussin SA 100 mg/5 mL oral liquid TAKE 10 ML EVERY 4 HOURS NEEDED 08/29 completed Not Available Not Available Not Available benzonatate 100 mg capsule TAKE 1 CAPSULE 3 TIMES EACH DAY NEEDED 02/28 completed Not Available Not Available Not Available oseltamivir 75 mg capsule TAKE 1 CAPSULE 2 TIMES EACH DAY FOR 5 DAYS 08/29 completed Not Available Not Available Not Available polymyxin B sulfate 10,000 unit-trimeth oprim 1 mg/mL eye drops PLACE 2 DROPS INTO THE EACH EYE EVERY 6 HOURS FOR 7 DAYS WHILE AWAKE. DO NOT EXCEED 6 DOSES IN 24 HOURS. 02/26 completed Not Available Not Available Not Available levetiraceta m 750 mg tablet TAKE 1 TABLET 2 TIMES EACH DAY active Not Available Not Available No t Available fluticasone propionate 50 mcg/actuatio n nasal spray,suspen judy SPRAY 1 TIME IN EACH NOSTRIL 2 TIMES EACH DAY 08/29 completed Not Available Not Available Not Available amitriptylin e 100 mg tablet active Not Available Not Available Not Available naproxen 500 mg tablet TAKE 1 TABLET 2 TIMES EACH DAY FOR 10 DAYS 08/29 completed Not Available Not Available Not Available cyclobenzapr ine 5 mg tablet TAKE 1 TABLET 3 TIMES EACH DAY NEEDED FOR MUSCLE SPASM 02/26 completed Not Available Not Available Not Available levetiraceta m ER 500 mg tablet,exten ded release 24 hr Take 1 tablet twice a day by oral route for 30 days. 08/30 completed Not Available Not Available Not Available Zyrtec 10 mg capsule 02/28 completed Not Available Not Available Not Available Vitals Date Recorded Body height Body mass index (BMI) Body weight Heart rate Systolic blood pressure Diastolic blood pressure Provider Name and Address Organization Details Last Updated DateTime 4 170.18 cm 25.4 kg/m2 16763.6 8 g 103 /min 116 mm[Hg] 60 mm[Hg] Jenniffer BOWLING [facility] 4 14:06:35 Date Recorded Body height Body mass index (BMI) Body weight Heart rate Oxygen saturation Oxygen saturation in Arterial blood by Pulse oximetry Systolic blood pressure Diastolic blood pressure Provider Name and Address Organization Details Last Updated DateTime 3 170.18 cm 25.1 kg/m2 46924.2 2 g 105 /min 99 % 99 % 135 mm[Hg] 80 mm[Hg] Jenniffer BOWLING [facility] & [place] 3 13:50:26 Date Recorded Body height Body mass index (BMI) Body weight Heart rate Systolic blood pressure Diastolic blood pressure Provider Name and Address Organization Details Last Updated DateTime 2 170.18 cm 24.2 kg/m2 26616.1 g 117 /min 100 mm[Hg] 79 mm[Hg] Jenniffer BOWLING [facility] & [place] 2 13:04:30 Social History Question Answer Notes LastModified by Organizat ion Details LastModified Time Tobacco Smoking Status Current Every Day Smoker Jenniffer Peggy [facility], [facility] & [place] 08/29/2022 13:06:44 Do You Have An Advance Directive? No Information not available 08/29/2022 Are You Blind Or Do You Have Difficulty Seeing? Yes Information not available 08/29/2022 What Is Your Level Of Caffeine Consumption? Occasional Information not available 02/28/2023 What Was The Date Of Your Most Recent Tobacco Screening? 06/02/2022 Information not available 08/29/2022 Do You Have Any Pets? Yes Information not available 02/28/2023 What Is Your Relationship Status? Lives With Significant Other, Apartment Information not available 02/28/2023 Are You Passively Exposed To Smoke? Yes Information not available 08/29/2022 How Much Tobacco Do You Smoke? 1 PPD Information not available 08/29/2022 Are You Currently In School? No Diploma Information not available 02/28/2023 Sex: Unknown Functional Status Question Answer Note LastModified by Organizat ion Details LastModified Time Do you use any illicit or recreational drugs? No Past user, THC [email or web address] Information not available 08/28/2022 Do you or have you ever used smokeless tobacco? [id number] Information not available 08/29/2022 Are you currently employed? No disabled Information not available 02/28/2023 What is your exercise level? Occasional Information not available 08/29/2022 Mental Status Question Answer Note LastModified by Organization D etails LastModified Time Do you feel stressed (tense, restless, nervous, or anxious, or unable to sleep at night)? [id number] Information not available 08/29/2022 Family History Relationship Description Onset Age of this Age Resolved Age Notes LastModified by Organization Details LastModified Time Mother Disorder of thyroid gland [email or web address] Not available 2021 14:51:25 Father Diabetes mellitus [email or web address] Not available 02/26 14:04:15 Medical History Condition Response Diabetes N Anxiety Disorder Y Autoimmune disease Y Vision or Eye Problems Y Seizures/Epilepsy Y Arthritis Y Ear or Hearing Problems Y Back Problems Y Back Pain Y Rheumatoid Arthritis Y Headaches N Obstructive Sleep Apnea N Gynecological HistoryNo gynecological history recorded. Obstetrics History GPAL:G 0 P 0 0 0 0 Past Encounters Encounter ID Performer Location Encounter Start Date Encounter Closed Date Diagnosis/Indication Diagnosis SNOMED-CT Code Diagnosis ICD10 Code Diagnosis Note [id number] Rosy Nunez DO [facility] [address] [facility],[address] [address] 08/29/2022 12:47:17 08/29/2022 13:32:39 Seizure disorder 835735668 G40.909 Chronic condition that is stable with her medication . Will continue the keppra. She needs refills today. No current restrictio ns. Chronic low back pain 27 4679801 M54.50 Chronic condition that is stable. Continue the gabapentin . She needs refills. Pain in right hand 59913 82581 73787 M79.641 Progressiv e right hand pain and numbness. Will order NCV/EMG to rule out an entrapment syndrome. [id number] Rosy Nunez DO [facility] [address] [facility],[address] [address] 08/31/2022 13:32:19 08/31/2022 14:10:08 Pain in right hand 2844705540 61923 M79.641 . [id number] Rosy Nunez DO [facility] [address] [facility],[address] [address] 02/28/2023 13:45:04 02/28/2023 14:15:16 Seizure disorder 907433621 G40.909 Chronic condition that is stable with her medication . Will continue the keppra. She does not need refills today. No current restrictio ns. Chronic low back pain 27 0674839 M54.50 Chronic condition that is stable. Continue the gabapentin . She does not need refills. [id number] Rosy Nunez DO [facility] [address] [facility],[address] [address] 02/27/2024 13:59:18 02/27/2024 14:19:37 Seizure disorder 390071509 G40.909 Chronic condition with breakthrou gh seizures. Will increase her dose of levetirace concepcion today. She will call if any further breakthrou gh events. She does not drive. Chronic low back pain 27 2477794 M54.50 Chronic condition that is stable. Continue the gabapentin . She needs refills today. She is having increased arthritic pain in her hands. She is in the process of getting a new PCP so I will give her some ibuprofen to use as needed for the pain until she can see her new PCP. Health Concerns Section Related Observation LastModified by Organization Detai ls LastModified Time None Recorded Concern Status LastModified by Organization Details LastModified Time None Recorded Advance Directives Directive N: Payers Insurance Date Sequence Insurance Name Policy Number Policy Ferrer Covered Member ID Ferrer Member ID Guarantor Name 03/29/2024 1 [employer] [facility] (MEDICAID HMO) Marilee Goodwin [id number] Marilee Christa Notes Date Note Type Note Provider Name and Address Organization Details Recorded Time 08/29/2022 text/html Marilee comes in for a follow up. She was last seen 02/14/22. She is prescribed Keppra for her seizure disorder and gabapentin for chronic low back pain/sciatica. The last visit she did report new numbness in the right hand. I ordered NCV/EMG but she cancelled. She did rescheduled for May but then did not show for that appointment.Last week she called to report being in the ER due to pain and swelling in the right hand.Today Marilee reports that she has been wearing a brace which helps a little with her hand pain. She does report that the numbness has progressed to pain. All of her hand is involved. 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 She can't sleep as it tends to wake her up. She denies any seizure since her last visit. She is compliant with her keppra. She denies any side effects from her medication.For her LBP she remains on gabapentin. This does seem to work well for her back pain but does not help her hand pain. Rosy Nunez, [address], [place], [address], [facility] - [facility] 08/29/2022 16:04:37 02/28/2023 text/html Marilee comes in today for a follow up. She did have carpal tunnel release bilateral since her last visit. This really did help her hand pain.She is compliant with her keppra. She denies any seizures. She continues to take gabapentin for her low back pain. She finds this works well for her.She denies any new health issues since she was last seen. PRIOR VISIT: (08/29/22)Marilee comes in for a follow up. She was last seen 02/14/22. She is prescribed Keppra for her seizure disorder and gabapentin for chronic low back pain/sciatica. The last visit she did report new numbness in the right hand. I ordered NCV/EMG but she cancelled. She did rescheduled for May but then did not show for that appointment.Last week she called to report being in the ER due to pain and swelling in the right hand.Today Marilee reports that she has been wearing a brace which helps a little with her hand pain. She does report that the numbness has progressed to pain. All of her hand is involved. 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 She can't sleep as it tends to wake her up. She denies any seizure since her last visit. She is compliant with her keppra. She denies any side effects from her medication.For her LBP she remains on gabapentin. This does seem to work well for her back pain but does not help her hand pain. Rosy Nunez, DO [address] [facility], [place], [address], [place] - [facility] - [place] & [place] 02/28/2023 16:48:09 02/27/2024 text/html Marilee comes in today for routine follow up. She is on levetiracetam for her seizure disorder. Today she reports having two seizures this past year. She did not have to go to the ER with either of these but one occurred while she was on a riding mower which resulted in her falling off and a neighbor having to get her out of the way before a major injury. She is not aware of any triggers for these breakthrough seizures.She is having increase arthritis pain related to her RA particularly in her hands.She is still on the gabapentin for her back pain which she does feel is stable. PRIOR VISIT: (02/28/23)Marilee comes in today for a follow up. She did have carpal tunnel release bilateral since her last visit. This really did help her hand pain.She is compliant with her keppra. She denies any seizures. She continues to take gabapentin for her low back pain. She finds this works well for her.She denies any new health issues since she was last seen. PRIOR VISIT: (08/29/22)Marilee comes in for a follow up. She was last seen 02/14/22. She is prescribed Keppra for her seizure disorder and gabapentin for chronic low back pain/sciatica. The last visit she did report new numbness in the right hand. I ordered NCV/EMG but she cancelled. She did rescheduled for May but then did not show for that appointment.Last week she called to report being in the ER due to pain and swelling in the right hand.Today Marilee reports that she has been wearing a brace which helps a little with her hand pain. She does report that the numbness has progressed to pain. All of her hand is involved. 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 She can't sleep as it tends to wake her up. She denies any seizure since her last visit. She is compliant with her keppra. She denies any side effects from her medication.For her LBP she remains on gabapentin. This does seem to work well for her back pain but does not help her hand pain. Rosy Nunez, DO [address] , [place], [address], [place] - [facility] - [place] & [place] 02/27/2024 14:22:06 OBGyn Episode No OBEpisode recorded.
[2025-02-10] MEDS: AMOXICILLIN/CLAVULANATE POTASSIUM 875/125MG TABLET 1 EACH PO (23:40)
--- NOTE | 2025-02-10 23:40 | HMH.EDGENADL ---
Discharge Plan Disposition Patient Disposition: Home, Self-Care Condition: Good Prescriptions Prescriptions: New prednisone 20 mg tablet 40 mg PO DAILY 4 Days Qty: 8 0RF amoxicillin-pot clavulanate 875-125 mg tablet 1 tab PO BID Qty: 14 0RF azithromycin 250 mg tablet See Rx Instructions .ROUTE .COMPLEX Qty: 6 0RF Rx Instructions: For 250 mg dose pack: take 500 mg today (day 1), then 250 mg for 4 days (days 2-5) No Action levetiracetam 1,000 mg tablet 1,000 mg PO BID Qty: 180 3RF amitriptyline 100 mg tablet See Rx Instructions .ROUTE .COMPLEX Qty: 270 2RF Dose Instruction: TAKE 3 TABLETS 1 TIME EACH DAY IN THE EVENING Rx Instructions: TAKE 3 TABLETS 1 TIME EACH DAY IN THE EVENING omeprazole 40 mg capsule,delayed release(DR/EC) See Rx Instructions .ROUTE .COMPLEX Qty: 90 3RF Dose Instruction: TAKE 1 CAPSULE 1 TIME EACH DAY Rx Instructions: TAKE 1 CAPSULE 1 TIME EACH DAY Referrals Follow up/Referrals: Ml Alba APRN [Primary Care Provider, Medical] - See instructions Activity Restrictions/Add. Instructions Additional Instructions/Restrictions: You were evaluated in the ER and are appropriate for discharge at this time. Take the prescribed medications as directed. Use the provided albuterol inhaler 2 puffs every 6 hours as needed for shortness of breath. Take the prescribed antibiotics as directed, do not skip doses, do not stop taking them early. I recommend taking a probiotic or eating a yogurt such as Activia to maintain good gut health while on antibiotics and to avoid yeast infection. I recommend to stop smoking, that will help your lungs heal and optimize your future health. Make an appointment with your primary care doctor for reevaluation this week before you leave for vacation. Return to the ER with any new, worsening, or otherwise concerning symptoms. Clinical Impressions Clinical Impression: COPD exacerbation, Productive cough Print Language Print Language: Kiswahili Discharge ED Provider: Melina Clemons Adult HPI General Chief complaint: Upper Respiratory Infection Stated complaint: Cough,fever,congestion,SOA Time Seen by Provider: 02/10/25 23:12 Mode of Arrival: Ambulatory Source of Information: Patient Description of Symptoms (Recalled from ER Triage Doc. by RN): Pt presents to ED for cough/congestion/wheezing. Pt is an everyday smoker. Pt states she's felt sick for 5 days and has been taking OTC meds. Spouse is bedside. Pt is A&O*4 and rates pain 6/10 when coughing. History of Present Illness HPI narrative: 49-year-old female with history of seizures and rheumatoid arthritis presents to the ER with complaints of cough, congestion, wheezing. Patient is an everyday smoker but reports never being diagnosed with COPD and has no inhalers at home. Patient reports she has felt ill for the last 5 to 7 days with cough and congestion and feels like her cough is getting worse. She reports it is productive. She has diffuse torso pain when coughing but no pain at rest. Patient reports no documented fevers but reports subjective fevers at home, no vomiting or diarrhea, she does report ear discomfort. She came to the ER requesting an x-ray and an antibiotic shot . She is worried she has pneumonia. No other complaints or concerns. Related Data Previous Rx's ?Medication ?Instructions ?Recorded amitriptyline 100 mg tablet See Rx Instructions .Route 06/27/23 .COMPLEX #270 tabs omeprazole 40 mg capsule,delayed See Rx Instructions .Route 11/27/23 release .COMPLEX #90 caps levetiracetam 1,000 mg tablet 1,000 mg PO BID #180 tabs 01/07/25 amoxicillin 875 mg-potassium 1 tab PO BID #14 tabs 02/10/25 clavulanate 125 mg tablet azithromycin 250 mg tablet See Rx Instructions PO .COMPLEX #6 02/10/25 tabs prednisone 20 mg tablet 40 mg (2 x 20 mg) PO DAILY 4 days 02/10/25 #8 tabs Allergies Allergy/AdvReac Type Severity Reaction Status Date / Time cephalexin (From Keflex) Allergy Verified 01/07/25 13:12 paroxetine Allergy Verified 01/07/25 13:12 Penicillins Allergy Rash Verified 01/07/25 13:12 propoxyphene Allergy Verified 01/07/25 13:12 tramadol Allergy Seizure Verified 01/07/25 13:12 [facility] Disclaimer: The information contained in this section may have been updated after the patient was seen, as this information can be updated by other users. Medical History (Updated 02/10/25 @ 23:22 by Melina Clemons MD) Anxiety GERD (gastroesophageal reflux disease) Sleep apnea Carpal tunnel syndrome Neuropathy Seizure disorder Surgical History History of Achilles tendon repair Hx of hand surgery History of tympanostomy tube placement History of hysterectomy History of section Family History Other No significant family history Social History (Updated 01/07/25 @ 13:14 by Ayla Ambrocio) Smoking Status: Current every day smoker tobacco type: cigarettes packs per day: 1 years smoked: 35 second hand exposure: Yes alcohol intake: never substance use type: denies use current occupational status: disabled Travel in the last 8 weeks?: None Have you lived/traveled outside [place] in past 30 days?: No Contact w/someone who lives/traveled outside [place] past 30 days?: No Exposure to someone with infectious disease in past 14 days?: No Do you have a fever (greater than 100.4 F or 38 C)?: Yes Have you tested positive for COVID-19?: No Exposed to someone with COVID-19 in past 14 days?: No Do you have a sore throat?: No Do you have a cough?: Yes Do you have any weakness?: No Do you have any diarrhea?: No Are you experiencing any unusual bleeding?: No Do you have any muscle aches/pain?: No Do you have any abdominal pain?: No Are you experiencing loss of taste or smell?: No Other Medical History Have you received the Pneumonia Vaccine: No ROS Obtained: Yes Systems reviewed as appropriate & no additional complaints except as documented Per HPI Physical Exam General General appearance: alert and in no apparent distress Head Head exam: atraumatic and normocephalic Eye Eye exam: Present PERRL and EOMI ENT ENT exam: Present mucous membranes moist Neck Neck exam: Present normal inspection and full ROM Chest Chest inspection: Present symmetric chest wall rise Respiratory Respiratory exam: Present normal lung sounds bilaterally (Few rhonchi diffusely that moves with cough, no rales) and wheezes (Diffuse expiratory); Absent respiratory distress, stridor, accessory muscle use or prolonged expiratory phase Cardiovascular Cardiovascular exam: Present normal rhythm and tachycardia (Trace tachycardia with heart rate just above 100 during exam but patient is slightly agitated and anxious) Abdominal Exam Abdominal exam: Present soft; Absent distention or tenderness Extremities Exam Extremities exam: Absent edema Neurological Exam Neurological exam: Present alert, oriented X3 and normal gait Psychiatric Psychiatric exam: Present normal affect Skin Skin exam: Present warm and dry Medical Decision Making Medical Records Medical records reviewed: Yes I reviewed the patient's medical records. Screening: Per USPSTF and CDC recommendations, given the prevalence of disease in our region, it is our hospital?s policy to screen for HIV and viral Hepatitis for all patients aged 18 and over and those with ongoing risk factors. MR Comment: Patient had reported to me no known drug allergies but review of records demonstrates allergy to Keflex. I reviewed this with the patient and she reports she gets yeast infection with Keflex. Cesar Inquiry Pt receiving controlled substance: No Vital Signs: 02/10/25 23:25 Temperature 98.3 F Temperature Source Oral Pulse Rate [Left] 102 H Respiratory Rate 18 Blood Pressure [Right Arm] 160/102 H Blood Pressure Mean [Right Arm] 121 02 Sat by Pulse Oximetry 95 Oxygen Delivery Method Room Air Orders (Tests/Meds): ED MEDICATIONS Discontinued Medications Generic Name Dose Route Start Last Admin Trade Name Freq PRN Reason Stop Dose Admin Albuterol Sulfate 4 puff 02/10/25 23:18 02/10/25 23:21 Albuterol-Hfa 90mcg/Puff Inhaler 8gm IH 02/10/25 23:19 4 puff ONCE ONE Administration Amoxicillin/Clavulanate Potassium 1 each 02/10/25 23:30 Amoxicillin/Clavulanate Potassium 875/125mg Tablet PO 02/10/25 23:31 ONCE ONE Miscellaneous 1 unit 02/10/25 23:17 02/10/25 23:22 Aerochamber/Optihaler MC 02/10/25 23:18 1 unit ONCE ONE Administration Prednisone 40 mg 02/10/25 23:17 02/10/25 23:21 Prednisone 20mg Tab PO 02/10/25 23:18 40 mg ONCE ONE Administration ORDERS Category Date Time Status CXR 2 view (NOT portable) [XR chest 2V] Stat Exams 02/10/25 23:17 Taken Medical Decision Narrative: In summary, this 49-year-old female with comorbidities described in the HPI which may not be at goal therapy presents to the emergency department today with cough, congestion, wheezing. Patient has trace tachycardia on arrival but was also mildly agitated during my initial evaluation. Lungs demonstrate good air movement throughout she does have mild end expiratory wheezing with few rhonchi that clear with cough. Remainder of exam benign. Differential diagnosis includes but is not limited to viral syndrome, COPD exacerbation, pneumonia. Given patient has wheezing and productive cough higher suspicion for COPD exacerbation since patient does not have any specific area of rales or diminished breath sounds which makes lobar pneumonia less likely. I explained to the patient that I am going to order chest x-ray but that she would likely not need antibiotic shot since shots were not specifically more effective than oral antibiotics except in a few select cases, but that oral antibiotics would likely be needed. She threatened to leave the ER before any workup stating well, you said I do not need antibiotics so I am just going to leave . I clarified with the patient that that was not in fact what I had said but that her specific request for an antibiotic shot would not necessarily be needed. I continued to explain to her that she would also receive albuterol MDI and steroids. While she has no previous diagnosis of COPD and is moving good air, her wheezing and history of smoking increases my suspicion that she does in fact have COPD and that her current symptoms are likely worsened by the presence of COPD which is probably in mild exacerbation at this time. Patient understands and is agreeable to workup. Patient ambulated independently to x-ray and had good oxygen saturation after ambulation. No desaturation. Chest x-ray personally interpreted does not demonstrate lobar infiltrate, there is evidence of inflammatory changes in the lungs likely related to COPD exacerbation or early infectious changes. Patient is receiving a dose of Augmentin in the ER. I reassessed the patient immediately prior to discharge. Since receiving the albuterol MDI her wheezing is improved and her air movement though not appreciably diminished on arrival has also improved. Saturating in the mid to upper 90s on room air. Tachycardia resolved. Heart rate was below 100 prior to discharge. I prescribed Augmentin, azithromycin, and prednisone for outpatient treatment. Patient was given instructions on use of albuterol MDI which was provided to her. She was also instructed on the use of antibiotics and steroids as well as potential side effects and ways to alleviate the side effects including ways to reduce the risk of yeast infection and GI upset while on antibiotics. I also gave the patient instructions for follow-up with PCP as well as strict return precautions for the ER. She indicated understanding and the patient was discharged in stable condition. Critical Care Critical Care Time Critical Care Time: No
[2025-02-10 23:48] VITALS: BP 123/78; PULSE 101; RESP 20; TEMP 37.2; O2SAT 94
== END 2025-02-10 23:49 | disposition home or self-care (01) ==
PROVIDERS: Emergency Provider Emergency Medicine; PCP Nurse Practitioner Family
DX: J44.1 Chronic obstructive pulmonary disease with (acute) exacerbation (principal); J06.9 Acute upper respiratory infection, unspecified; F17.210 Nicotine dependence, cigarettes, uncomplicated
CPT/HCPCS: 71046; 99284

== ENCOUNTER 2025-05-09 12:51 | Emergency (ER) | payer MEDICAID, SELFPAY ==
--- NOTE | 2025-05-09 13:17 | ED_ITS ---
<Statement entered by Zac Mata DO - 05/09/25 17:23> I was consulted by the LINDA, and we discussed the complexity of problems being addressed. I approved the treatment and management plan for this patient's care in the emergency department, thus performing a substantive portion of the medical decision making. Zac Mata DO Discharge Plan Disposition Patient Disposition: Home, Self-Care Condition: Good Prescriptions Prescriptions: No Action levetiracetam 1,000 mg tablet 1,000 mg PO BID Qty: 180 3RF amitriptyline 100 mg tablet See Rx Instructions .ROUTE .COMPLEX Qty: 270 2RF Dose Instruction: TAKE 3 TABLETS 1 TIME EACH DAY IN THE EVENING Rx Instructions: TAKE 3 TABLETS 1 TIME EACH DAY IN THE EVENING omeprazole 40 mg capsule,delayed release(DR/EC) See Rx Instructions .ROUTE .COMPLEX Qty: 90 3RF Dose Instruction: TAKE 1 CAPSULE 1 TIME EACH DAY Rx Instructions: TAKE 1 CAPSULE 1 TIME EACH DAY prednisone 20 mg tablet 40 mg PO DAILY 4 Days Qty: 8 0RF amoxicillin-pot clavulanate 875-125 mg tablet 1 tab PO BID Qty: 14 0RF azithromycin 250 mg tablet See Rx Instructions .ROUTE .COMPLEX Qty: 6 0RF Rx Instructions: For 250 mg dose pack: take 500 mg today (day 1), then 250 mg for 4 days (days 2-5) Referrals Follow up/Referrals: Ml Alba APRN [Primary Care Provider, Medical] - See instructions Margarito Puente II, MD [Staff Physician, Gastroenterology] - See instructions Activity Restrictions/Add. Instructions Additional Instructions/Restrictions: Please return to the emergency department with any worsening signs or symptoms, please bring stool sample if needed back to the emergency department to run. Will call you with results. I recommend good intake with fluids and solids. Please follow-up with GI physician in the upcoming days/weeks. Clinical Impressions Clinical Impression: Colitis Instructions Patient Instructions: DI for Acute Abdominal Pain, DI for Colitis Print Language Print Language: Malagasy Discharge ED Provider: Zac Mata General Adult HPI <CHRISTINE Burton - Last Filed: 05/09/25 15:52> General Chief complaint: Abdominal Pain Stated complaint: blood in bowels Time Seen by Provider: 05/09/25 13:10 Mode of Arrival: Ambulatory Source of Information: Patient Limitations: No Limitations History of Present Illness HPI narrative: 49-year-old female presents the emergency department for 3 to 4-day history of abdominal pain, generalized weakness,/fatigue, as well as concern for blood , in my stool, she said that she saw blood in the toilet bowl , as well as some episodes of dark stools, she does have a picture on her cell phone that I was able to view at the bedside. Patient denies any chest pain shortness of breath, the admits to occasional nausea no vomiting no hematemesis, describes it more as melena, no real hematochezia, no hematuria, no urinary type symptomatology, patient is a current everyday smoker, occasionally utilizes marijuana, denies any other alcohol or drug use, other past medical history is consistent with epilepsy on anticonvulsant therapy, ANJU/MDD, COPD, history of TBI, RA, insomnia, GERD. Initial triage vitals unremarkable. Please note that above description of symptoms, in this electronic medical record under categorization of recalled from ER triage doctor by RN are reflective of an initial nursing assessment, however, is not reflective of my full history and physical exam that was personally taken and clarified. Consequentially, this preceding description of symptoms, which may include the patient's categorized chief complaint in the EMR, do not reflect my personal clinical impression, and the ultimate description of history of present illness and patient stated complaints should be deferred to this section of the note. Unless stated otherwise or congruent with this section of the note, additional signs, symptoms, or incongruence should be interpreted as inaccurate with my clinical impression. Onset (ago): day(s) Related Data Previous Rx's ?Medication ?Instructions ?Recorded amitriptyline 100 mg tablet See Rx Instructions .Route 06/27/23 .COMPLEX #270 tabs omeprazole 40 mg capsule,delayed See Rx Instructions . Route 11/27/23 release .COMPLEX #90 caps levetiracetam 1,000 mg tablet 1,000 mg PO BID #180 tab s 01/07/25 amoxicillin 875 mg-potassium 1 tab PO BID #14 tabs 12/02 clavulanate 125 mg tablet azithromycin 250 mg tablet See Rx Instructions PO .COM PLEX #6 02/10/25 tabs prednisone 20 mg tablet 40 mg (2 x 20 mg) PO DAILY 4 days 02/10/25 #8 tabs Allergies Allergy/AdvReac Type Severity Reaction Status Date / Time cephalexin (From Keflex) Allergy Verified 01/07/25 13:12 paroxetine Allergy Verified 01/07/25 13:12 Penicillins Allergy Rash Verified 01/07/25 13:12 propoxyphene Allergy Verified 01/07/25 13:12 tramadol Allergy Seizure Verified 01/07/25 13:12 PFSH <CHRISTINE Burton - Last Filed: 05/09/25 15:52> FOR[facility]LY [facility] Disclaimer: The information contained in this section may have been updated after the patient was seen, as this information can be updated by other users. Medical History (Updated 05/09/25 @ 15:52 by CHRISTINE Burton) Anxiety GERD (gastroesophageal reflux disease) Sleep apnea Carpal tunnel syndrome Neuropathy Seizure disorder Surgical History History of Achilles tendon repair Hx of hand surgery History of tympanostomy tube placement History of hysterectomy History of section Family History Other No significant family history Social History Smoking Status: Current every day smoker tobacco type: cigarettes packs per day: 1 years smoked: 35 second hand exposure: Yes alcohol intake: never substance use type: denies use current occupational status: disabled Travel in the last 8 weeks?: None Have you lived/traveled outside US in past 30 days?: No Contact w/someone who lives/traveled outside US past 30 days?: No Exposure to someone with infectious disease in past 14 days?: No Do you have a fever (greater than 100.4 F or 38 C)?: No Have you tested positive for COVID-19?: No Exposed to someone with COVID-19 in past 14 days?: No Do you have a sore throat?: No Do you have a cough?: No Do you have any weakness?: No Do you have any diarrhea?: No Are you experiencing any unusual bleeding?: No Do you have any muscle aches/pain?: No Do you have any abdominal pain?: No Are you experiencing loss of taste or smell?: No Other Medical History Have you received the Pneumonia Vaccine: No <CHRISTINE Burton - Last Filed: 05/09/25 15:52> ROS Obtained: Yes All systems reviewed & no additional complaints except as documented Physical Exam <CHRISTINE Burton - Last Filed: 05/09/25 15:52> General General appearance: alert and in no apparent distress Head Head exam: atraumatic and normocephalic Eye Eye exam: Present PERRL and EOMI ENT ENT exam: Present mucous membranes moist Neck Neck exam: Present normal inspection Chest Chest inspection: Present normal inspection and symmetric chest wall rise Respiratory Respiratory exam: Present normal lung sounds bilaterally; Absent respiratory distress Cardiovascular Cardiovascular exam: Present regular rate and normal rhythm Abdominal Exam Abdominal exam: Present soft and tenderness; Absent guarding, rebound or rigidity Abdominal tenderness: Present diffuse and mild Extremities Exam Extremities exam: Present normal inspection Neurological Exam Neurological exam: Present alert and oriented X3 Psychiatric Psychiatric exam: Present normal affect Skin Skin exam: Present warm and dry Medical Decision Making <CHRISTINE Burton - Last Filed: 05/09/25 15:52> Medical Records Medical records reviewed: Yes I reviewed the patient's medical records. Screening: Per USPSTF and CDC recommendations, given the prevalence of disease in our region, it is our hospital?s policy to screen for HIV and viral Hepatitis for all patients aged 18 and over and those with ongoing risk factors. Cesar Inquiry Pt receiving controlled substance: No Cesar was queried for this patient: No Vital Signs: 05/09/25 13:20 05/09/25 13:26 05/09/25 13:59 Temperature 98.1 F Temperature Source Oral Pulse Rate 110 H 101 H Pulse Rate [Right] 95 H Respiratory Rate 18 Blood Pressure 111/77 125/62 Blood Pressure [Right Arm] 111/77 Blood Pressure Mean 88 Blood Pressure Mean [Right Arm] 88 Blood Pressure Source [Right Arm] Automatic Cuff Blood Pressure Position [Right Arm] Supine 02 Sat by Pulse Oximetry 98 98 97 Oxygen Delivery Method Room Air 05/09/25 14:00 05/09/25 14:30 Temperature Temperature Source Pulse Rate 97 H 100 H Pulse Rate [Right] Respiratory Rate Blood Pressure 124/77 Blood Pressure [Right Arm] Blood Pressure Mean Blood Pressure Mean [Right Arm] Blood Pressure Source [Right Arm] Blood Pressure Position [Right Arm] 02 Sat by Pulse Oximetry 97 96 Oxygen Delivery Method Lab Data Lab results reviewed: Yes I reviewed the patient's lab results. Lab Results 05/09/25 13:20: WBC 12.8 H, RBC 4.84, Hgb 13.3, Hct 41.5, MCV 85.7, MCH 27.5, MCHC 32.0, RDW 13.8, Plt Count 311, MPV 9.3, Neut % (Auto) 63.5, Lymph % (Auto) 30.0, Williamson % (Auto) 5.8, Eos % (Auto) 0.0 L, Baso % (Auto) 0.2, Neut # (Auto) 8.1 H, Lymph # (Auto) 3.8, Williamson # (Auto) 0.7, Eos # (Auto) 0.0, Baso # (Auto) 0.0, PT 10.3, INR 0.92, APTT 24.2, Sodium 141, Potassium 3.4 L, Chloride 113 H, Carbon Dioxide 21 L, Anion Gap 10.4, BUN 8, Creatinine 0.70, Estimated Creat Clear 121, Estimated GFR 88, Est GFR ( Amer) 107, Glucose 127 H, Calcium 9.2, Total Bilirubin 0.2, AST 38 H, ALT 30, Alkaline Phosphatase 114, Total Protein 7.3, Albumin 4.3, Globulin 3.0, Albumin/Globulin Ratio 1.4, Lipase 81, HIV Ag/Ab Combo Qual Negative 05/09/25 13:49: Lactate 1.1, Blood Type A Positive, Antibody Screen Negative 05/09/25 14:55: Stool Occult Blood Negative 05/09/25 13:20 05/09/25 13:20 Orders (Tests/Meds): ED MEDICATIONS Discontinued Medications Generic Name Dose Route Start Last Admin Trade Name Ghulamq PRN Reason Stop Dose Admin Pantoprazole Sodium 80 mg/ 100 mls @ 100 mls/hr 05/09/25 13:24 05/09/25 15:45 Sodium Chloride IV 05/09/25 14:23 Infused ONCE ONE Infusion Iopamidol 80 ml 05/09/25 14:42 05/09/25 14:43 Iopamidol-370 (76%);100ml Bottle IV 05/09/25 14:43 80 ml ONCE ONE Administration Sodium Chloride 50 ml 05/09/25 14:42 05/09/25 14:43 0.9 % Sodium Chloride 50 Ml Vial IV 05/09/25 14:43 50 ml ONCE ONE Administration Sodium Chloride 10 ml 05/09/25 14:42 05/09/25 14:43 Sodium Chloride 0.9% 10ml Syr (Rad Only) IV 05/09/25 14:43 10 ml ONCE ONE Administration ORDERS Category Date Time Status Type and Screen Stat BBK 05/09/25 13:[address] angio abd/pel - GI Bleed Stat Cat Scan 05/09/25 13:23 Completed Complete Blood Count Auto Diff Stat Lab 05/09/25 13:20 Completed Comprehensive Metabolic Panel Stat Lab 05/09/25 13:20 Completed Diarrhea 6-11 Panel, Cdiff PCR Stat Lab 05/09/25 15:41 Ordered HIV Combo Stat Lab 05/09/25 13:20 Completed Hepatitis C Ab Qual. W/ RFX Stat Lab 05/09/25 13:20 Received Lactic Acid Stat Lab 05/09/25 13:49 Completed Lipase Stat Lab 05/09/25 13:20 Completed Occult Blood,Stool Stat Lab 05/09/25 14:55 Completed PT INR [Prothrombin Time INR] Stat Lab 05/09/25 13:20 Completed PTT [Activated Partial Thrombo Time] Stat Lab 05/09/25 13:20 Completed Medical Decision Narrative: 49-year-old female presents the emergency department with melena abdominal pain, differential diagnosis include but not limited to, upper GI bleed, lower GI bleed, duodenitis, gastritis, GERD, colitis, ileitis, diverticulitis, coagulopathy, gastroenteritis among others. I discussed the patient's case with the attending physician Dr. Mata Will obtain basic laboratory studies, EKG, PT/INR, PTT, CTA GI bleed protocol, lactic acid level, lipase level, fecal occult, will give 80 mg IV Protonix and obtain type and screen. CBC notable for mild leukocytosis 12.8 PT/INR and PTT within normal limits CMP is noted for normal lactic acid level, minimal hypokalemia at 3.4, AST is minimally elevated at 38, lipase is normalized. Blood type A positive Fecal occult negative. I reviewed the patient's CTA abdomen pelvis with contrast along the corresponding radiologic report, bowel thickening of the rectosigmoid colon and rectum may represent colitis in the appropriate clinical setting. Will obtain diarrhea PCR panel, if patient can give stool sample here in the emergency department, if not, we will send patient home with stool test/sample to bring back to the emergency department/hospital to run. Patient to follow-up with GI physician in the upcoming days/weeks, recommend good p.o. intake, fluids and solids, patient voiced understanding and agreement with current treatment plan/discharge plan will call patient with results of PCR panel. Strict ED return precaution given. <Zac Adolfo, DO - Last Filed: 05/09/25 16:05> Vital Signs: 05/09/25 13:20 05/09/25 13:26 05/09/25 13:59 Temperature 98.1 F Temperature Source Oral Pulse Rate 110 H 101 H Pulse Rate [Right] 95 H Respiratory Rate 18 Blood Pressure 111/77 125/62 Blood Pressure [Right Arm] 111/77 Blood Pressure Mean 88 Blood Pressure Mean [Right Arm] 88 Blood Pressure Source [Right Arm] Automatic Cuff Blood Pressure Position [Right Arm] Supine 02 Sat by Pulse Oximetry 98 98 97 Oxygen Delivery Method Room Air 05/09/25 14:00 05/09/25 14:30 Temperature Temperature Source Pulse Rate 97 H 100 H Pulse Rate [Right] Respiratory Rate Blood Pressure 124/77 Blood Pressure [Right Arm] Blood Pressure Mean Blood Pressure Mean [Right Arm] Blood Pressure Source [Right Arm] Blood Pressure Position [Right Arm] 02 Sat by Pulse Oximetry 97 96 Oxygen Delivery Method Lab Data Lab Results 05/09/25 13:20: WBC 12.8 H, RBC 4.84, Hgb 13.3, Hct 41.5, MCV 85.7, MCH 27.5, MCHC 32.0, RDW 13.8, Plt Count 311, MPV 9.3, Neut % (Auto) 63.5, Lymph % (Auto) 30.0, Williamson % (Auto) 5.8, Eos % (Auto) 0.0 L, Baso % (Auto) 0.2, Neut # (Auto) 8.1 H, Lymph # (Auto) 3.8, Williamson # (Auto) 0.7, Eos # (Auto) 0.0, Baso # (Auto) 0.0, PT 10.3, INR 0.92, APTT 24.2, Sodium 141, Potassium 3.4 L, Chloride 113 H, Carbon Dioxide 21 L, Anion Gap 10.4, BUN 8, Creatinine 0.70, Estimated Creat Clear 121, Estimated GFR 88, Est GFR ( Amer) 107, Glucose 127 H, Calcium 9.2, Total Bilirubin 0.2, AST 38 H, ALT 30, Alkaline Phosphatase 114, Total Protein 7.3, Albumin 4.3, Globulin 3.0, Albumin/Globulin Ratio 1.4, Lipase 81, HIV Ag/Ab Combo Qual Negative 05/09/25 13:49: Lactate 1.1, Blood Type A Positive, Antibody Screen Negative 05/09/25 14:55: Stool Occult Blood Negative Orders (Tests/Meds): ED MEDICATIONS Discontinued Medications Generic Name Dose Route Start Last Admin Trade Name Rufina PRN Reason Stop Dose Admin Pantoprazole Sodium 80 mg/ 100 mls @ 100 mls/hr 05/09/25 13:24 05/09/25 15:45 Sodium Chloride IV 05/09/25 14:23 Infused ONCE ONE Infusion Iopamidol 80 ml 05/09/25 14:42 05/09/25 14:43 Iopamidol-370 (76%);100ml Bottle IV 05/09/25 14:43 80 ml ONCE ONE Administration Sodium Chloride 50 ml 05/09/25 14:42 05/09/25 14:43 0.9 % Sodium Chloride 50 Ml Vial IV 05/09/25 14:43 50 ml ONCE ONE Administration Sodium Chloride 10 ml 05/09/25 14:42 05/09/25 14:43 Sodium Chloride 0.9% 10ml Syr (Rad Only) IV 05/09/25 14:43 10 ml ONCE ONE Administration ORDERS Category Date Time Status Type and Screen Stat BBK 05/09/25 13:[address] angio abd/pel - GI Bleed Stat Cat Scan 05/09/25 13:23 Completed Complete Blood Count Auto Diff Stat Lab 05/09/25 13:20 Completed Comprehensive Metabolic Panel Stat Lab 05/09/25 13:20 Completed Diarrhea 6-11 Panel, Cdiff PCR Stat Lab 05/09/25 15:41 Ordered HIV Combo Stat Lab 05/09/25 13:20 Completed Hepatitis C Ab Qual. W/ RFX Stat Lab 05/09/25 13:20 Received Lactic Acid Stat Lab 05/09/25 13:49 Completed Lipase Stat Lab 05/09/25 13:20 Completed Occult Blood,Stool Stat Lab 05/09/25 14:55 Completed PT INR [Prothrombin Time INR] Stat Lab 05/09/25 13:20 Completed PTT [Activated Partial Thrombo Time] Stat Lab 05/09/25 13:20 Completed ECG Data Tracing #1: I reviewed this ECG and interpreted as documented below: EKG personally interpreted by me demonstrates normal sinus rhythm with a rate of 95 bpm, normal axis, no AK prolongation, narrow QRS, no QTc prolongation. No ST elevation or depression. No overt signs of ischemia or arrhythmia Critical Care <CHRISTINE Burton - Last Filed: 05/09/25 15:52> Critical Care Time Critical Care Time: No
--- OUTSIDE RECORDS SUMMARY | 2025-05-09 13:18 | XMS_ITS | Referral Summary ---
Author Organization [employer] ([place], [place], [place], [place]) Address [address] [place] [address] Care Team Providers Care Packager Hand Name Role Phone Unavailable Primary Care Provider Unavailabl e Social History Tobacco Use Types Packs/Day Years Used Date Smoking Tobacco: Never Assessed Comments Unknown Sex and Gender Information Value Date Recorded Sex Assigned at Not on file Legal Sex Female 6:25 PM CDT Gender Identity Not on file Sexual Orientation Not on file Plan of Treatment Not on file
--- OUTSIDE RECORDS SUMMARY | 2025-05-09 13:18 | XMS_ITS | Clinical Summary ---
Author Organization [facility] Address [address] [place] [address] Care Team Providers Care Customer Success Associate Name Role Phone Ml Alba ZIGZAG TUNNEL ELASTIC OPERATOR Primary Care Provider [phone] Allergies Active Allergy Reactions Criticality Noted Date Comments Penicillins 02/25/2016 Medications amitriptyline (ELAVIL) 150 MG tablet Take 300 mg by mouth every night. Active levETIRAcetam (KEPPRA) 500 MG tablet Take 1,000 mg by mouth 2 (two) times a day. Active citalopram (CeleXA) 20 MG tablet Take 20 mg by mouth daily. Active HYDROcodone-humberto taminophen (NORCO) 5-325 MG per tablet Take 1 tablet by mouth every 6 (six) hours as needed for moderate pain (4-6) for up to 20 doses. 20 tablet 02/25/2016 Active Social History Tobacco Use Types Packs/Day Years Used Date Smoking Tobacco: Heavy Smoker Cigarettes Alcohol Use Standard Drinks/Week Comments Yes 5 (1 standard drink = 0.6 oz pur e alcohol) Abuse Screen Answer Date Recorded Unsafe at Home or Work/School Not on file Feels Threatened by Someone? Not on file Does Anyone Keep You from Co ntacting Others or Doint Things Outside the Home? Not on file 06/22/2023 Physical Sign of Abuse Present Not on file 1 Housing Stability Answer Date Recorded Current Living Arrangements Not on file 06/10 Potentially Unsafe Housing Conditions Not on rashid e 06/22/2023 Family and Community Support Answer Ryder e Recorded Help with Day-to-Day Activities Not on file 06/22/2023 Lonely or Isolated Not on file 06/22/2023 Employment Answer Date Recorded Do you want help finding or keeping work or a sammy b? Not on file 06/22/2023 Disabilities Answer Date Recorded Concentrating, Remembering, or Making Decisions Difficulty Not on file 06/22/2023 Doing Errands Independently Difficulty Not on fi le 06/22/2023 Education Answer Date Recorded Help with school or training? Not on file Preferred Language Not on file 06/22/2023 Comments Unknown Sex and Gender Information Value Date Recorded Sex Assigned at Not on file Legal Sex Female 8:15 PM EDT Gender Identity Not on file Sexual Orientation Not on file Last Filed Vital Signs Vital Sign Reading Time Taken Comments Blood Pressure 106/79 02/25/2016 9:02 AM EDT Pulse 106 02/25/2016 7:03 AM EDT Temperature 36.9 C (98.4 F) 02/25/2016 7:03 AM EDT Respiratory Rate 18 02/25/2016 7:03 AM EDT Oxygen Saturation 96% 02/25/2016 9:02 AM EDT Inhaled Oxygen Concentration - - Weight 77.1 kg (170 lb) 02/25/2016 7:03 AM EDT Height 170.2 cm (5' 7 ) 02/25/2016 7:03 AM EDT Body Mass Index 26.63 02/25/2016 7:03 AM EDT Plan of Treatment Upcoming Encounters Date Type Department Care Team (Late st Contact Info) Description 07/28/2025 10:30 AM EST Office Visit [facility] [address] [facility] [address] [place] [address] Nola Ulrich MD [address] [facility] [address] [place] [address] Health Maintenance Due Date Last Done Comments ANNUAL PHYSICAL 1973 Annual Gynecologic Pelvic and Breast Exam 1973 Pneumococcal Vaccine 50+ (1 of 2 - PCV) 1992 MAMMOGRAM 2013 COLOGUARD 2018 COLON CANCER SCREENING 5 YEA R SIGMOIDOSCOPY 2018 COLONOSCOPY 2018 [address] CANCER SCREENING 2018 CT COLONOGRAPHY 2018 FECAL OCCULT BLOOD TEST 2018 FIT Testing (1 year) 2018 ZOSTER VACCINE (1 of 2) 2023 COVID-19 Vaccine (3 - season) 2024, 01/13/2021 INFLUENZA VACCINE 06/10/2025 TDAP/TD VACCINES (2 - Td or Tdap) 02/22/2026 016 HEPATITIS C SCREENING Completed 09/09/2019 Insurance [employer] Care Teams Customer Success Associate Relationship Specialty Start Date End Date Ml Alba APRN [address] [place] [id number] PCP - General Family Medicine 03/27/25
--- OUTSIDE RECORDS SUMMARY | 2025-05-09 13:18 | XMS_ITS | Clinical Summary ---
Author Organization [facility] Address [address] [place] [id number] Care Team Providers Care Operator Catalyst Concentration Name Role Phone None, Physician Primary Care Provider Unavailabl e Allergies Active Allergy Reactions Criticality Noted Date Comments Penicillins 06/01/2018 Medications levETIRAcetam (KEPPRA) 500 MG tablet Take 500 mg by mouth 2 (two) times daily Active AMITRIPTYLINE HCL PO Take 300 mg by mouth nightly Active Brompheniramine- Pseudoeph 4-60 MG CAPSIndications: Viral upper respiratory tract infection Take 1 capsule by mouth every 4 (four) to 6 (six) hours as needed (congestion) 20 capsule 06/01/2018 Active Active Problems No known active problems Family History Medical History Relation Comments Stroke Maternal Grandfather Diabetes Maternal Uncle Asthma Mother Relation Status Comments Maternal Grandfather Maternal Uncle Mother Social History Tobacco Use Types Packs/Day Years Used Date Smoking Tobacco: Former Smokeless Tobacco: Never Alcohol Use Standard Drinks/Week Comments Yes 0 (1 standard drink = 0.6 oz pur e alcohol) OCC Comments Unknown Sex and Gender Information Value Date Recorded Sex Assigned at Not on file Legal Sex Female 2:51 PM EDT Gender Identity Not on file Sexual Orientation Not on file Last Filed Vital Signs Vital Sign Reading Time Taken Comments Blood Pressure 104/64 06/01/2018 3:08 PM EDT Pulse 98 06/01/2018 3:08 PM EDT Temperature 36.4 C (97.5 F) 06/01/2018 3:08 PM EDT Respiratory Rate 18 06/01/2018 3:08 PM EDT Oxygen Saturation 99% 06/01/2018 3:08 PM EDT Inhaled Oxygen Concentration - - Weight 91.2 kg (201 lb) 06/01/2018 3:08 PM EDT Height 170.2 cm (5' 7 ) 06/01/2018 3:08 PM EDT Body Mass Index 31.48 06/01/2018 3:08 PM EDT Plan of Treatment Health Maintenance Due Date Last Done Comments Breast Cancer Screening 1973 CT Colonography 1973 Colonoscopy 1973 Colorectal Cancer Screening 1973 FIT-DNA 1973 FIT 1973 FOBT 1973 Sigmoidoscopy 1973 Hepatitis B (HepB) Vaccine ( 1 of 3 - 19+ 3-dose series) 1992 Tdap/Td Vaccine >11 yo (1 - Tdap) 1992 Cervical Cancer Screening 1994 Pneumococcal Vaccines >50 yo (1 of 1 - PCV) 2023 Shingles (Shingrix) (1 of 2) 2023 Annual SDOH Screening 09/10/2024 Influenza Vaccine (#1) 2025 Haemophilus Influenzae Type B (Hib) Vaccine Aged Out No longer eligible b ased on patient's age to complete this topic Hepatitis A (HepA) Vaccine Aged Out N o longer eligible based on patient's age to complete this topic Meningococcal ACWY Aged Out No longer eligible based on patient's age to complete this topic Polio (IPV) Aged Out No longer eligi ble based on patient's age to complete this topic Rotavirus (RV) Vaccine Aged Out No lo nger eligible based on patient's age to complete this topic Insurance [facility] Care Teams Operator Catalyst Concentration Relationship Specialty Start Date End Date None, Physician PCP - General 06/01/18
--- OUTSIDE RECORDS SUMMARY | 2025-05-09 13:18 | XMS_ITS | Clinical Summary ---
Author Organization [employer] ([place], [place], [place], [place]) Address [address] [place] [address] Care Team Providers Care Swine Nutritionist Name Role Phone Unavailable Primary Care Provider [...]
[2025-05-09 13:20] VITALS: BP 111/77; PULSE 110; O2SAT 98
--- NOTE | 2025-05-09 13:23 | CT_ITS ---
PROCEDURE INFORMATION: Exam: CTA Abdomen and Pelvis With Contrast Exam date and time: 05/09/2025 2:43 PM Age: 49 years old Clinical indication: Other: Melena, abdominal pain TECHNIQUE: Imaging protocol: Computed tomographic angiography of the abdomen and pelvis with contrast. Exam focused on the arteries. 3D rendering (Not supervised by radiologist): MIP and/or 3D reconstructed images were created by the technologist. Radiation optimization: All CT scans at this facility use at least one of these dose optimization techniques: automated exposure control; mA and/or kV adjustment per patient size (includes targeted exams where dose is matched to clinical indication); or iterative reconstruction. Contrast material: ISO 370; Contrast volume: 80 ml; Contrast route: INTRAVENOUS (IV); COMPARISON: CR XR CHEST 2V 02/10/2025 11:16 PM FINDINGS: Lungs: Atelectasis in the lingula Aorta: No aortic aneurysm. No aortic dissection. Celiac trunk and mesenteric arteries: No occlusion or significant stenosis. Renal arteries: No occlusion or significant stenosis. Right iliac arteries: No occlusion or significant stenosis. Left iliac arteries: No occlusion or significant stenosis. Liver: No mass. Gallbladder and biliary ducts: Unremarkable. No calcified stones. No ductal dilation. Pancreas: Unremarkable. No mass. No ductal dilation. Spleen: Unremarkable. No splenomegaly. Adrenal glands: Unremarkable. No mass. Kidneys and ureters: There is no evidence of renal or ureteral calcifications. Stomach and bowel: Bowel thickening in the rectosigmoid and rectum may represent colitis in the appropriate clinical setting. Appendix: Normal appendix Intraperitoneal space: Unremarkable. No free air. No significant fluid collection. Lymph nodes: Unremarkable. No enlarged lymph nodes. Urinary bladder: Unremarkable. No mass. Reproductive: Surgical resection of the uterus Bones/joints: No acute fracture. Soft tissues: Unremarkable. IMPRESSION: Bowel thickening in the rectosigmoid and rectum may represent colitis in the appropriate clinical setting.
[2025-05-09 13:26] VITALS: BP 111/77; PULSE 95; RESP 18; TEMP 36.7; O2SAT 98; BMI 27.8
[2025-05-09 13:30] LABS: Hematocrit 41.5 % (37.0-47.0); Hemoglobin 13.3 g/dL (12.2-16.2); Immature Granulocytes % 0.5 %; Mean Corpuscular HGB Conc 32.0 g/dL (31.8-35.4); Mean Corpuscular Hemoglobin 27.5 pg (27.0-31.2); Mean Corpuscular Volume 85.7 fl (81-99); Nucleated Red Blood Cells % 0 %; Platelet Count 311 K/mm3 (142-424); Red Blood Count 4.84 M/mm3 (4.20-5.40); Red Cell Distribution Width-SD 43.3 fL; White Blood Count 12.8 K/mm3 (4.8-10.8)
[2025-05-09 13:45] LABS: INR 0.92 (0.9-1.1); Prothrombin Time 10.3 seconds (10.1-12.5)
[2025-05-09 13:52] LABS: Activated Partial Thrombo Time 24.2 seconds (22.8-30.6)
[2025-05-09 13:54] LABS: Albumin Level 4.3 g/dl (3.5-5.0); Chloride 113 mmol/L (98-107); Potassium 3.4 mmoL/L (3.5-5.1); Sodium 141 mmol/L (136-145)
[2025-05-09 13:57] LABS: Alanine Aminotransferase 30 U/L (12-78); Albumin/Globulin Ratio 1.4 (1.1-1.8); Alkaline Phosphatase 114 U/L (38-126); Anion Gap 10.4 mEq/L (5-15); Aspartate Amino Transferase 38 U/L (14-36); Bilirubin,Total 0.2 mg/dl (0.2-1.3); Blood Urea Nitrogen 8 mg/dl (7-17); Carbon Dioxide 21 mmol/L (22.0-30.0); Creatinine Clearance Estimated 121 mL/min (50-200); Creatinine,Serum 0.70 mg/dl (0.52-1.04); Estimated Glomerular Filt Rate 88 ml/min (>60); GFR (African American) 107 ML/MIN (>60); Globulin 3.0 g/dL (1.3-3.2); Glucose 127 mg/dl (74-100); Lipase 81 U/L (23-300); Total Protein,Serum 7.3 g/dl (6.3-8.2)
--- NOTE | 2025-05-09 13:57 | ECG_ITS ---
APPROVED REPORT Exam: Resting ECG HR:95 bpm ECG Measurements Heart Rate 95 AXES GA 159 P 76 QRSd 94 QRS 80 QT 382 T 81 QTc 435 Conclusion Normal sinus rhythm Normal axis Normal intervals No STEMI Electronically signed by : Zac Mata, 05/09/2025 17:32:00
[2025-05-09 13:58] LABS: Calcium 9.2 mg/dl (8.4-10.2)
[2025-05-09 13:59] VITALS: BP 125/62; PULSE 101; O2SAT 97
[2025-05-09 14:00] VITALS: BP 124/77; PULSE 97; O2SAT 97
[2025-05-09] MEDS: PANTOPRAZOLE SODIUM 80 MG in 0.9 % SODIUM CHLORIDE 100 ML 100 MG IV (14:29)
[2025-05-09 14:30] VITALS: PULSE 100; O2SAT 96
[2025-05-09] MEDS: 0.9 % SODIUM CHLORIDE 50 ML VIAL IV (14:43)
[2025-05-09] MEDS: SODIUM CHLORIDE 0.9% 10ML SYR (RAD ONLY) 10 ML IV (14:43)
[2025-05-09] MEDS: IOPAMIDOL-370 (76%);100ML BOTTLE 80 ML IV (14:43)
[2025-05-09 15:12] LABS: Occult Blood,Stool Negative (Negative)
[2025-05-09 16:02] VITALS: BP 98/54; PULSE 96; RESP 17; TEMP 36.8; O2SAT 97
--- NOTE | 2025-05-09 16:04 | PC.NURSE ---
pt given out patient order and take home kit to collect a diarrhea sample. She was given instructions how to collect the specimen and where to return the sample. pt verbalized her understanding.
[2025-05-09 17:01] LABS: Hepatitis C Ab Qual. W/ RFX NEGATIVE (Negative)
== END 2025-05-09 16:07 | disposition home or self-care (01) ==
PROVIDERS: Physician Assistant; Emergency Provider Student in an Organized Health Care Education/Training Program; PCP Nurse Practitioner Family
DX: K52.9 Noninfective gastroenteritis and colitis, unspecified (principal); G40.919 Epilepsy, unspecified, intractable, without status epilepticus; F41.9 Anxiety disorder, unspecified
CPT/HCPCS: 36415; 74174; 80053; 82272; 83605; 83690; 85025; 85610; 85730; 86803; 86850; 87389; 93005; 96365; 99285; G0328; J2470; Q9967

== ENCOUNTER 2025-07-17 12:34 | Outpatient (CLI) | payer MEDICAID, SELFPAY ==
--- OUTSIDE RECORDS SUMMARY | 2025-07-15 13:30 | XMS_ITS | Encounter Summary ---
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 pain TECHNIQUE: XR LUMBAR SPINE 2 OR 3 VIEWS, XR HAND WRIST BILATERAL 2 VIEWS, XR CERVICAL SPINE 2 OR 3 VIEWS, XR PELVIS 1 OR 2 VIEWS COMPARISON: None. FINDINGS: Please see same day pelvis report. Procedure Note Gary Loredo MD - 07/15/2025 CLINICAL INDICATION: pain TECHNIQUE: XR LUMBAR SPINE 2 OR 3 VIEWS, XR HAND WRIST BILATERAL 2 VIEWS, XR CERVICALSPINE 2 OR 3 VIEWS, XR PELVIS 1 OR 2 VIEWS COMPARISON: None. FINDINGS: Please see same day pelvis report. IMPRESSION: As above. CRITICAL RESULT: No. COMMUNICATION: Per this written report. Drafted by Gary Loredo MD on 07/15/2025 3:34 PM Final report signed by Gary Loredo MD on 07/15/2025 3:34 PM Shagufta Fishman MD IMG XR PROCEDURES Final Result * (ABNORMAL) Vitamin D 25 Hydroxy (07/15/2025 2:26 PM EST) Vitamin D 25 Hydroxy 11.6(L) 20.0 - 80.0 ng/mL 07/15/2025 10:26 PM EST [facility] Blood Venous blood specimen / Unknown Venipuncture / Unknown 07/15/2025 2:26 PM EST 07/15/2025 2:26 PM EST Narrative [facility] - 07/15/2025 10:26 PM EST Testing performed on [employer], standardized against NIST SRM 2972. When testing samples from patients whose predominant form of vitamin D is vitamin D2, such as patients receiving vitamin D2 supplementation, results that are subtherapeutic should be confirmed with another method, such as LC-MS/MS, before being used for patient management. Vitamin D, 25-Hydroxy reference range, age 18 years and up: Deficiency: <12 ng/mL Insufficiency: 12 to 19 ng/mL Sufficiency: 20 to 80 ng/mL Possible toxicity: >100 ng/mL Shagufta Fishman MD LAB BLOOD ORDERABLES Final Res ult [facility] [address] [place] [address] * (ABNORMAL) C-reactive protein (07/15/2025 2:26 PM EST) CRP, Plasma 9.6(H) <=8.0 mg/L 07/15/2025 4:21 PM EST [facility] Blood Venous blood specimen / Unknown Venipuncture / Unknown 07/15/2025 2:26 PM EST 07/15/2025 2:26 PM EST Narrative [facility] - 07/15/2025 4:21 PM EST This CRP test is appropriate for assessment of infection, systemic inflammation and/or tissue injury. To assess cardiovascular disease risk order high sensitivity CRP (CRPH). us Shagufta Fishman MD LAB BLOOD ORDERABLES Final Res ult Performing Organization Address [facility] Co de Phone Number [facility] [address] [place] [address] * Sedimentation Rate, Automated (07/15/2025 2:26 PM EST) Sedimentation Rate 29 <30 mm/hr 2024 4:21 PM EST [facility] Blood Venous blood specimen / Unknown Venipuncture / Unknown 07/15/2025 2:26 PM EST 07/15/2025 2:26 PM EST us Shagufta Fishman MD LAB BLOOD ORDERABLES Final Res ult Performing Organization Address [facility] Co de Phone Number [facility] [address] [place] [address] documented in this encounter Visit Diagnoses Diagnosis Arthralgia of both hands- Primary Rash Rash and other nonspecific skin eruption Chronic midline low back pain without sciatica Immunization counseling Dizziness Dizziness and giddiness Neck pain Cervicalgia ROSIE positive Neck pain Cervicalgia Arthralgia of both hands Chronic midline low back pain without sciatica documented in this encounter Additional Health Concerns Assessment Noted Time PHQ-9 Depression Total Score: 0 07/15/20 25 1:09 PM EST A fall risk assessment has been complete d for the patient 07/15/2025 1:09 PM EST A Body Mass Index follow-up plan has been documented for the patient 07/15/2025 2:15 PM EST documented as of this encounter Care Teams Cost Clerk Relationship Specialty Start Date End Date Ml Alba, [employer] [address] [place] [address] PCP - General 03/17/25 documented as of this encounter
--- OUTSIDE RECORDS SUMMARY | 2025-07-15 14:31 | XMS_ITS | Encounter Summary ---
Author Organization Healthcare Address [address] [place] [address] Care Team Providers Care Personal Chef Name Role Phone Ml Alba APRN Primary Care Provider [phone] Encounter Details Date Type Department Care Team (Latest Contact Info) Description 07/15/2025 2:31 PM EST - 07/15/2025 11:59 PM [facility] [address] [place] [id number] Neck pain; Arthralgia of both hands; Chronic midline low back pain without sciatica Discharge Disposition: Home or Self Care Social History Tobacco Use Types Packs/Day Years Used Date Smoking Tobacco: Every Day Smokeless Tobacco: Never Comments:Heavy cigarette smo ker (20-39 per day) Alcohol Use Standard Drinks/Week [...] on file documented as of this encounter Functional Status * Over the past 2 weeks, how often have you been bothered by any of the following problems? Question Answer Date of Assessment Author Little interest or pleasure in doing things Not at all 07/15/2025 1:09 PM Sia Al Feeling down, depressed, or hopeless Not at all 07/15/2025 1:09 PM Sia Al Patient Health Questionnaire -2 Score 0 07/15/2025 1:09 PM Sia Al * Question Answer Date of Assessment Author Trouble falling or staying a sleep, or sleeping too much Not at all 07/15/2025 1:09 PM Sia Al Feeling tired or having jean marie le energy Not at all 07/15/2025 1:09 PM Sia Al Poor appetite or overeating Not at all 07/15/2025 1: 09 PM Sia Al Feeling bad about yourself - or that you are a failure or have let yourself or your family down Not at all 07/15/2025 1:09 PM Sia Al Trouble concentrating on thi ngs, such as reading the newspaper or watching television Not at all 07/15/2025 1:09 PM Sia Al Moving or speaking so slowly that other people could have noticed? Or the opposite - being so fidgety or restless that you have been moving around a lot more than usual. Not at all 07/15/2025 1:09 PM Sia Villasenor Thoughts that you would be b alida off or hurting yourself in some way Not at all 07/15/2025 1:09 PM Sia Al Patient Health Questionnaire -9 Score 0 07/15/2025 1:09 PM Sia Al * How difficult have these problems made it for you to do your work, take care of things at home, or get along with other people? Answer Date of Assessment Author Not difficult at all 07/15/2025 1:09 PM Sia Knowles documented as of this encounter Medications at Time of Discharge amitriptyline (Elavil) 150 MG tablet Take 2 tablets by mouth daily. Calcium Carbonate-Vit D-Min (Caltrate Bone Health Advanced) 600-800 MG-UNIT tablet Take 1 tablet by mouth daily. 30 tablet 3 07/15/2025 celecoxib (CeleBREX) 200 MG capsule Take 1 capsule by mouth 2 times a day. 60 capsule 3 07/15/2025 cetirizine (ZyrTEC) 10 MG tablet TAKE 1 TABLET 1 TIME EACH DAY DULoxetine (Cymbalta) [address] capsule take 1 capsule 1 time each day 06/29/2025 gabapentin (Neurontin) 600 MG tablet take 1 tablet 3 times each day 07/02/2025 hydrocortisone 2.5 % cream APPLY A THIN FILM TO THE AFFECTED AREA OF SKIN 2 TIMES EACH DAY levETIRAcetam (Keppra) 750 MG tablet TAKE 1 TABLET 2 TIMES EACH DAY FOR SEIZURES 07/02/2025 lidocaine (Xylocaine) 5 % ointment Apply to hand joints two to three times per day 50 g 3 07/15/2025 omeprazole (PriLOSEC) [address] capsule TAKE 1 CAPSULE 1 TIME EACH DAY Tea Tree 100 % oil Apply to rash twice a day 60 mL 2 07/15/2025 documented as of this encounter Plan of Treatment Upcoming Encounters Date Type Department Care Team (Late st Contact Info) Description 10/21/2025 3:00 PM EST Office Visit [facility] [address] [place] [phone] Shagufta Fishman MD [address] [place] [address] documented as of this encounter Procedures Procedure Name Priority Date/Time Associated Diagnosis Comments XR HAND WRIST BILATERAL 2 VIEWS Routine 07/15/2025 2:56 PM EST Arthralgia of both hands Chronic midline low back pain without sciatica XR PELVIS 1 OR 2 VIEWS Routine 07/15/2025 2:56 PM EST Arthralgia of both hands Chronic midline low back pain without sciatica XR LUMBAR SPINE 2 OR 3 VIEWS Routine 07/15/2025 2:56 PM EST Arthralgia of both hands Chronic midline low back pain without sciatica XR CERVICAL SPINE 2 OR 3 VIEWS Routine 07/15/2025 2:56 PM EST Neck pain documented in this encounter Results * XR Pelvis 1 or 2 Views (07/15/2025 2:56 PM EST) Anatomical Region Laterality Modality Body, Pelvis Digital Radiogra phy Addenda Addendum by Gary Loredo MD on 07/15/2025 3:34 PM EST Addendum: ADDENDUM: TECHNIQUE: XR LUMBAR SPINE 2 OR 3 VIEWS, XR HAND WRIST BILATERAL 2 VIEWS, XR CERVICAL SPINE 2 OR 3 VIEWS, XR PELVIS 1 OR 2 VIEWS Drafted by Gary Loredo MD on 07/15/2025 3:34 PM Final report signed by Gary Loredo MD on 07/15/2025 3:34 PM Impressions 07/15/2025 3:28 PM EST Degenerative changes as described. No erosions. CRITICAL RESULT: No. COMMUNICATION: Per this written report. Drafted by Gary Loredo MD on 07/15/2025 3:26 PM Final report signed by Gary Loredo MD on 07/15/2025 3:28 PM Narrative 07/15/2025 3:28 PM EST CLINICAL INDICATION: pain lower back TECHNIQUE: XR PELVIS 1 OR 2 VIEWS COMPARISON: 09/09/2019 FINDINGS: Pelvis: Overlying soft tissue secures bone detail. No significant hip joint space narrowing. No erosive change. Cervical spine: Mild lower cervical uncovertebral hypertrophy. Patient is edentulous. Straightening of cervical lordosis. Mild to moderate C6-7 disc space narrowing with anterior osteophytosis. Right hand and wrist: Distal radius and ulna are unremarkable. No carpal or metacarpal bone erosions. Flexion of the fingers limits evaluation. No phalangeal erosions given limitations. Left hand and wrist: Mild triscaphe and thumb CMC osteoarthrosis. No carpal or metacarpal bone erosions. No phalangeal erosions. Lumbar spine: Overlying soft tissue obscures bone detail. 5 lumbar type vertebral bodies. Degenerative changes anteriorly at L3-4. Procedure Note Gary Loredo MD - 07/15/2025 CLINICAL INDICATION: pain lower back TECHNIQUE: XR PELVIS 1 OR 2 VIEWS COMPARISON: 09/09/2019 FINDINGS: Pelvis: Overlying soft tissue secures bone detail. No significant hipjoint space narrowing. No erosive change. Cervical spine: Mild lower cervical uncovertebral hypertrophy. Patient isedentulous. Straightening of cervical lordosis. Mild to moderate C6-7 discspace narrowing with anterior osteophytosis. Right hand and wrist: Distal radius and ulna are unremarkable. No carpalor metacarpal bone erosions. Flexion of the fingers limits evaluation. Nophalangeal erosions given limitations. Left hand and wrist: Mild triscaphe and thumb CMC osteoarthrosis. Nocarpal or metacarpal bone erosions. No phalangeal erosions. Lumbar spine: Overlying soft tissue obscures bone detail. 5 lumbar typevertebral bodies. Degenerative changes anteriorly at L3-4. IMPRESSION: Degenerative changes as described. No erosions. CRITICAL RESULT: No. COMMUNICATION: Per this written report. Drafted by Gary Loredo MD on 07/15/2025 3:26 PM Final report signed by Gary Loredo MD on 07/15/2025 3:28 PM us Shagufta Fishman MD IMG XR PROCEDURES Edited Resul t - Final * XR Lumbar Spine 2 or 3 [...] IMG XR PROCEDURES Final Result * XR Cervical Spine 2 or 3 [...] Fishman MD IMG XR PROCEDURES Final Result documented in this encounter Visit Diagnoses Diagnosis Neck pain Cervicalgia Arthralgia of both hands Chronic midline low back pain without sciatica documented in this encounter Additional Health Concerns Assessment Noted Time PHQ-9 Depression Total Score: 0 07/15/20 1:09 PM EST A fall risk assessment has been complete d for the patient 07/15/2025 1:09 PM EST A Body Mass Index follow-up plan has been documented for the patient 07/15/2025 2:15 PM EST documented as of this encounter Care Teams Personal Chef Relationship Specialty Start Date End Date Ml Alba APRN [address] [place] [address] PCP - General 03/17/25 documented as of this encounter
[2025-07-17 12:36] LABS: Clostridium Difficile A/B, PCR Not Detected (NotDetected); Cyclospora Cayetanesis Not Detected (NotDetected); Salmonella, PCR Not Detected (NotDetected); Shiga-like toxin E coli Not Detected (NotDetected); Shigella Enterovasive E coli Not Detected (NotDetected); Vibrio, PCR Not Detected (NotDetected); Yersinia Entercolitica, PCR Not Detected (NotDetected)
--- OUTSIDE RECORDS SUMMARY | 2025-07-17 12:36 | XMS_ITS | Data Portability ---
Author Organization Liquid., [facility] Address [address] [place] [address] Assessment Encounter Date Assessment Date Assessment LastModified by Organization Details LastModified Time 03/02/2025 03/02/2025 Her gabapentin was stopped by neurology. She had three seizures in the last three months. Evaluated in ER at [facility] in November 2024. SHORT supply of gabapentin. I lowered the dose and frequency as she has not been taking the 800 mg QID regularly. I will fill this until she is established with neurology. She will return for below ordered labs tomorrow. Toradol per plan below and change celebrex to diclofenac. Discussed risks and benefits and not to take with any other NSAIDs. Start Vraylar. Follow up in 2-3 weeks to recheck, sooner if needed Not available 03/06/2025 10:49:14 03/23/2025 03/23/2025 Shingrix/Tdap today. Labs next week. Continue gabapentin. Start cymbalta. Follow up in 1 month for recheck, sooner if needed Not available 04/02/2025 14:50:40 04/24/2025 04/24/2025 Increase duloxetine. Labs per plan below. We will follow up on neuro referral. Mammogram - it has been a few years, but last one was at [facility], we will order annual screening. Follow up in 1 month for recheck, sooner if needed Not available 04/24/2025 19:17:07 05/13/2025 05/13/2025 Patient needs ER evaluation given the worsening condition and significant distension in her abdomen. She is agreeable with this plan. SO to drive her directly to ER for evaluation. Follow up after. Not available 05/18/2025 19:55:39 05/20/2025 05/20/2025 Referral to specialist for eval. Topical as prescribed. Follow up in 1 month to recheck sooner if needed. Not available 05/20/2025 13:08:16 Plan of Treatment Reminders Order Date Submit Date Provider Last Modified By Organization Details Last Modified Time Details Appointments None recorded. Lab lipid panel, serum 2024 025 JOSE G [facility] ([place]), [address] [place], [address], 5 15:07:40 CMP, serum or plasma 2024 025 JOSE G [facility] ([place]), [address] [place], [address], 5 15:07:39 levetiracet am, serum 2024 025 VERNER [facility] ([place]), [address] [place], [address], 5 15:07:40 lipid panel, serum 2024 025 [place] [address] [facility] ([place]), [address] [place], [address], 5 09:37:01 CMP, serum or plasma 2024 025 JOSE G [facility] ([place]), [address] [place], [address], 5 19:48:21 unlisted lab - levetiracet am ([facility]), [id number] 2024 025 [place] [address] [facility], [address] [place] [address], [address], 5 09:40:51 lipid panel, serum 2024 025 [facility]), [address] [place], [address], 5 04:06:57 TSH, ultra-sensi tive, serum 2024 025 [facility]), [address] [place], [address], 5 04:06:59 CBC w/ auto diff 2024 025 [facility]), [address] [place], [address], 5 04:06:56 CMP, serum or plasma 2024 025 [facility]), [address] [place], [address], 5 04:06:57 ROSIE (antinuclea r antibodies) screen, serum 2024 025 [facility]), [address] [place], [address], 5 04:07:00 rf (rheumatoid factor), serum 2024 025 [facility]), [address] [place], [address], 5 04:06:58 unlisted lab - toxassure flex 20, [id number] 2024 025 [facility]), [address] [place], [address], 5 08:10:44 levetiracet am, serum 2024 025 [facility]), [address] [place], [address], 5 04:07:00 Hepatitis C IgG Ab, qual, serum 2024 025 JOSE G [facility] ([place]), [address], [place], [address], 5 04:06:58 HIV 1 + 2, meaningful use set 2024 025 JOSE G [facility] ([place]), [address], [place], [address], 5 04:06:59 Referral gastroenter ologist referral - Recent colitis. Patient would like a colonscopy. She is improving with treatment. Eval ordered for diagnostic versus screening colonoscopy 2024 025 JOSE G Puente MD, [address], [place], [address], 5 08:23:02 neurologist referral [address] [facility], [facility]5 [facility], [address], [place], [address], 5 12:07:59 Procedures None recorded. Surgeries None recorded. Imaging MAMMO, screening, digital, bilateral [address] Centralized Scheduling, [address] [place], [address], 5 16:08:07 XR, hand, 3 or more view 2024 025 [email or web address] 7 [facility], [place], [address] [place] [address], [phone], 5 10:45:33 Medication Orders hydrocortis one 2.5 % topical cream 2024 025 [employer], [address] [place] [address], [id number], 5 15:24:00 Zyrtec 10 mg tablet 2024 025 [employer], [address] [place] [address], [id number], 5 14:27:15 duloxetine 60 mg capsule,del ayed release 2024 025 VERNER [employer] [facility], [address] [place] [address], [id number], 5 10:54:05 Cymbalta 30 mg capsule,del ayed release 2024 025 JOSE [facility], [address] [place] [address], [id number], 5 09:37:52 Zyrtec 10 mg tablet 2024 025 JOSE [facility], [address] [place] [address], [id number], 5 14:16:57 ketorolac 60 mg/2 mL intramuscul ar solution 2024 025 Not available 10:51:18 diclofenac sodium 50 mg tablet,viviana yed release 2024 025 [employer] [facility], [address] [place] [address], [id number], 5 09:32:50 Vraylar 1.5 mg capsule 2024 025 JOSE [facility], [address] [place] [address], [id number], 5 10:58:16 gabapentin 600 mg tablet 2024 025 [employer], [address] [place] [address], [id number], 5 14:33:01 Patient TargetsNo targets recorded. Patient Instructions Encounter Date Encounter Id Patient Instructions Last Modified By Organization Details Last Modified Time 03/02/2025 [id number] controlled substance agreement* [email or web address] Not available 03/02/2025 16:07:32 03/23/2025 [id number] allergies: care instructions Not available 03/23/2025 11:07:53 04/24/2025 [id number] mammogram: about this test Not available 04/24/2025 09:31:11 05/20/2025 [id number] learning about healthy weight Not available 05/20/2025 13:07:47 Reason for Referral Neurologist Referral for Sei zure disorder Referring Physician: Ml Alba [facility], Encounter Date: 03/02/2025 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 Patient would like a colonscopy. She is improving with treatment. Eval ordered for diagnostic versus screening colonoscopy Referring Physician: Ml Alba [facility], Encounter Date: 05/20/2025 Results Created Date Observation Date Name Description Value Unit Range Abnormal Flag Note LastModifiedBy Organization Detail LastModifiedTime 03/02/20 25 03/06/2025 TOXAS SURE FLEX 20, UR summary report FINAL ===== ===== ===== ===== ===== ===== ===== ===== ===== ===== ===== ===== ===== === Canna binoi ds, MS, Ur RFX Gabap entin , MS, Ur RFX ToxAs sure Flex 20, Ur ===== ===== ===== ===== ===== ===== ===== ===== ===== ===== ===== ===== ===== === Test Resul t Flag Units Drug Prese nt Carbo xy-TH C 40 ng/mg creat Carbo xy-TH C is a metab olite of tetra hydro canna binol (THC) . Sourc e of THC is most commo nly herba l marij uana or marij uana- based produ cts, but THC is also prese nt in a sched uled presc ripti on medic ation . Trace amoun ts of THC can be prese nt in hemp and canna bidio l (CBD) produ cts. This test is not inten ded to disti nguis h betwe en delta -9-te trahy droca nnabi nol, the predo minan t form of THC in most herba l or marij uana- based produ cts, and delta -8-te trahy droca nnabi nol. Gabap entin PRESE NT ===== ===== ===== ===== ===== ===== ===== ===== ===== ===== ===== ===== ===== === Test Resul t Flag Units Ref Range Creat inine 48 mg/dL >=20 ===== ===== ===== ===== ===== ===== ===== ===== ===== ===== ===== ===== ===== === Decla red Medic ation s: Medic ation list was not provi ded. ===== ===== ===== ===== ===== ===== ===== ===== ===== ===== ===== ===== ===== === For clini raffi consu ltati on, pleas e call [phone]. ===== ===== ===== ===== ===== ===== ===== ===== ===== ===== ===== ===== ===== === Not Available [facility] ([facility]) [address] [facility], [place], [address], 03/06/2025 08:10:44 03/02/20 25 03/06/2025 TOXAS SURE FLEX 20, UR pdf . Not Available [facility] ([facility]) [address] [place], [address], 03/06/2025 08:10:44 03/02/20 25 03/06/2025 TOXAS SURE FLEX 20, UR creatinine 48 mg/dL >=20 REFER ENCE RANGE : Ref Range >=20 Not Available [facility] ([facility]) [address] [place], [address], 03/06/2025 08:10:44 03/02/20 25 03/06/2025 TOXAS SURE FLEX 20, UR amphetamines ia Negati ve NG/mL cutoff :300 Not Available [facility] ([facility]) [address] [place], [address], 03/06/2025 08:10:44 03/02/20 25 03/06/2025 TOXAS SURE FLEX 20, UR benzodiazepi kendrick Negati ve Not Available [facility] ([facility]) [address] [place], [address], 03/06/2025 08:10:44 03/02/20 25 03/06/2025 TOXAS SURE FLEX 20, UR diazepam Not Detect ed NG/mg _crea t Not Available [facility] ([facility]) [address] [place], [address], 03/06/2025 08:10:44 03/02/20 25 03/06/2025 TOXAS SURE FLEX 20, UR desmethyldia zepam Not Detect ed NG/mg _crea t Not Available [facility] ([facility]) [address] [place], [address], 03/06/2025 08:10:44 03/02/20 25 03/06/2025 TOXAS SURE FLEX 20, UR oxazepam Not Detect ed NG/mg _crea t Not Available [facility] ([facility]) [address] [place], [address], 03/06/2025 08:10:44 03/02/20 25 03/06/2025 TOXAS SURE FLEX 20, UR temazepam Not Detect ed NG/mg _crea t Expec laverne metab olism of benzo diaze pine class drugs : Paren t Drug Detec laverne Metab olite s ----- ----- - ----- ----- ----- ----- Diaze kylie: Desme thyld iazep am, Temaz epam, Oxaze kylie Chlor diaze poxid e: Desme thyld iazep am, Oxaze kylie Clora zepat e: Desme thyld iazep am, Oxaze kylie Halaz epam: Desme thyld iazep am, Oxaze kylie Temaz epam: Oxaze kylie Oxaze kylie: None Not Available [facility] ([facility]) [address] [place], [address], 03/06/2025 08:10:44 03/02/20 25 03/06/2025 TOXAS SURE FLEX 20, UR alprazolam Not Detect ed NG/mg _crea t Not Available [facility] ([facility]) [address] [place], [address], 03/06/2025 08:10:44 03/02/20 25 03/06/2025 TOXAS SURE FLEX 20, UR alpha-hydrox yalprazolam Not Detect ed NG/mg _crea t Not Available [facility] ([facility]) [address] [place], [address], 03/06/2025 08:10:44 03/02/20 25 03/06/2025 TOXAS SURE FLEX 20, UR desalkylflur azepam Not Detect ed NG/mg _crea t Not Available [facility] ([facility]) [address] [place], [address], 03/06/2025 08:10:44 03/02/20 25 03/06/2025 TOXAS SURE FLEX 20, UR lorazepam Not Detect ed NG/mg _crea t Not Available [facility] ([facility]) [address] [place], [address], 03/06/2025 08:10:44 03/02/20 25 03/06/2025 TOXAS SURE FLEX 20, UR alpha-hydrox ytriazolam Not Detect ed NG/mg _crea t Not Available [facility] ([facility]) [address] [place], [address], 03/06/2025 08:10:44 03/02/20 25 03/06/2025 TOXAS SURE FLEX 20, UR clonazepam Not Detect ed NG/mg _crea t Not Available [facility] ([facility]) [address] [place], [address], 03/06/2025 08:10:44 03/02/20 25 03/06/2025 TOXAS SURE FLEX 20, UR 7-aminoclona zepam Not Detect ed NG/mg _crea t Not Available [facility] ([facility]) [address] [place], [address], 03/06/2025 08:10:44 03/02/20 25 03/06/2025 TOXAS SURE FLEX 20, UR midazolam Not Detect ed NG/mg _crea t Not Available [facility] ([facility]) [address] [place], [address], 03/06/2025 08:10:44 03/02/20 25 03/06/2025 TOXAS SURE FLEX 20, UR alpha-hydrox ymidazolam Not Detect ed NG/mg _crea t Not Available [facility] ([facility]) [address] [place], [address], 03/06/2025 08:10:44 03/02/20 25 03/06/2025 TOXAS SURE FLEX 20, UR flunitrazepa m Not Detect ed NG/mg _crea t Not Available [facility] ([facility]) [address] [place], [address], 03/06/2025 08:10:44 03/02/20 25 03/06/2025 TOXAS SURE FLEX 20, UR desmethylflu nitrazepam Not Detect ed NG/mg _crea t Not Available [facility] ([facility]) [address] [place], [address], 03/06/2025 08:10:44 03/02/20 25 03/06/2025 TOXAS SURE FLEX 20, UR cocaine metabolite ia Negati ve NG/mL cutoff :150 Not Available [facility] ([facility]) [address] [place], [address], 03/06/2025 08:10:44 03/02/20 25 03/06/2025 TOXAS SURE FLEX 20, UR ethanol biomarkers ia Negati ve NG/mL cutoff :500 Not Available [facility] ([facility]) [address] [place], [address], 03/06/2025 08:10:44 03/02/20 25 03/06/2025 TOXAS SURE FLEX 20, UR cannabinoids ia COMMEN T NG/mL cutoff :20 Furth er testi ng indic ated Not Available [facility] ([facility]) [address] [place], [address], 03/06/2025 08:10:44 03/02/20 25 03/06/2025 TOXAS SURE FLEX 20, UR 6-acetylmorp alaina ia Negati ve NG/mL cutoff :10 Not Available [facility] ([facility]) [address] [place], [address], 03/06/2025 08:10:44 03/02/20 25 03/06/2025 TOXAS SURE FLEX 20, UR opiate class ia Negati ve NG/mL cutoff :100 Not Available [facility] ([facility]) [address] [place], [address], 03/06/2025 08:10:44 03/02/20 25 03/06/2025 TOXAS SURE FLEX 20, UR oxycodone class ia Negati ve NG/mL cutoff :100 Not Available [facility] ([facility]) [address] [place], [address], 03/06/2025 08:10:44 03/02/20 25 03/06/2025 TOXAS SURE FLEX 20, UR methadone ia Negati ve NG/mL cutoff :100 Not Available [facility] ([facility]) [address] [place], [address], 03/06/2025 08:10:44 03/02/20 25 03/06/2025 TOXAS SURE FLEX 20, UR methadone mtb ia Negati ve NG/mL cutoff :100 Not Available [facility] ([facility]) [address] [place], [address], 03/06/2025 08:10:44 03/02/20 25 03/06/2025 TOXAS SURE FLEX 20, UR buprenorphin e ia Negati ve NG/mL cutoff :5.0 Not Available [facility] ([facility]) [address] [place], [address], 03/06/2025 08:10:44 03/02/20 25 03/06/2025 TOXAS SURE FLEX 20, UR fentanyl ia Negati ve NG/mL cutoff :2.0 Not Available [facility] ([facility]) [address] [place], [address], 03/06/2025 08:10:44 03/02/20 25 03/06/2025 TOXAS SURE FLEX 20, UR tapentadol ia Negati ve NG/mL cutoff :200 Not Available [facility] ([facility]) [address] [place], [address], 03/06/2025 08:10:44 03/02/20 25 03/06/2025 TOXAS SURE FLEX 20, UR propoxyphene ia Negati ve NG/mL cutoff :300 Not Available [facility] ([facility]) [address] [place] [address], [address], 03/06/2025 08:10:44 03/02/20 25 03/06/2025 TOXAS SURE FLEX 20, UR tramadol ia Negati ve NG/mL cutoff :200 Not Available [facility] ([facility]) [address] [place], [address], 03/06/2025 08:10:44 03/02/20 25 03/06/2025 TOXAS SURE FLEX 20, UR methylphenid ate ia Negati ve NG/mL cutoff :100 Not Available [facility] ([facility]) [address] [place], [address], 03/06/2025 08:10:44 03/02/20 25 03/06/2025 TOXAS SURE FLEX 20, UR barbiturates ia Negati ve NG/mL cutoff :200 Not Available [facility] ([facility]) [address] [place], [address], 03/06/2025 08:10:44 03/02/20 25 03/06/2025 TOXAS SURE FLEX 20, UR phencyclidin e ia Negati ve NG/mL cutoff :25 Not Available [facility] ([facility]) [address] [place], [address], 03/06/2025 08:10:44 03/02/20 25 03/06/2025 TOXAS SURE FLEX 20, UR anticonvulsa nts +POSIT BRISEYDA+ Not Available [facility] ([facility]) [address] [place], [address], 03/06/2025 08:10:44 03/02/20 25 03/06/2025 TOXAS SURE FLEX 20, UR gabapentin ia COMMEN T ug/mL cutoff :1.0 Furth er testi ng indic ated Not Available [facility] ([facility]) [address] [place], [address], 03/06/2025 08:10:44 03/02/20 25 03/06/2025 TOXAS SURE FLEX 20, UR pregabalin Not Detect ed Not Available [facility] ([facility]) [address] [place], [address], 03/06/2025 08:10:44 03/02/20 25 03/06/2025 TOXAS SURE FLEX 20, UR carisoprodol ia Negati ve NG/mL cutoff :100 Not Available [facility] ([facility]) [address] [place], [address], 03/06/2025 08:10:44 03/02/20 25 03/06/2025 TOXAS SURE FLEX 20, UR kratom ia Negati ve NG/mL cutoff :5.0 Not Available [facility] ([facility]) [address] [place], [address], 03/06/2025 08:10:44 03/02/20 25 03/06/2025 CANNA NOAHOI DS, MS, UR RFX cannabinoids +POSIT BRISEYDA+ Not Available [facility] ([facility]) [address] [place], [address], 03/06/2025 08:10:45 03/02/20 25 03/06/2025 CANNA BINOI DS, MS, UR RFX carboxy-THC 40 NG/mg _crea t This test is not inten ded to disti nguis h betwe en the metab olite s of delta -9-te trahy droca nnabi nol, the predo minan t form of THC in most herba l or marij uana- based produ cts, and delta -8-te trahy droca nnabi nol, a psych oacti ve compo und gener ally synth esize d from other canna binoi ds. Not Available [facility] ([facility]) [address] [place], [address], 03/06/2025 08:10:45 03/02/20 25 03/06/2025 GABAP ENTIN , MS, UR RFX anticonvulsa nts +POSIT BRISEYDA+ Not Available [facility] ([facility]) [address] [facility], [place], [address], 03/06/2025 08:10:45 03/02/20 25 03/06/2025 GABAP ENTIN , MS, UR RFX gabapentin PRESEN T Not Available [facility] ([facility]) [address] [facility], [place], [address], 03/06/2025 08:10:45 03/03/20 25 03/04/2025 CBC WITH DIFFE RENTI AL/PL ATELE T WBC 8.7 x10e3 /uL 3.4-10 .8 normal Not Available [facility] ([facility]) [address] [place], [address], 03/06/2025 04:06:56 03/03/20 25 03/04/2025 CBC WITH DIFFE RENTI AL/PL ATELE T RBC 4.92 x10e6 /uL 3.77-5 .28 normal Not Available [facility] ([facility]) [address] [place], [address], 03/06/2025 04:06:56 03/03/20 25 03/04/2025 CBC WITH DIFFE RENTI AL/PL ATELE T hemoglobin 13.7 g/dL 11.1-1 5.9 normal Not Available [facility] ([facility]) [address] [place], [address], 03/06/2025 04:06:56 03/03/20 25 03/04/2025 CBC WITH DIFFE RENTI AL/PL ATELE T hematocrit 45.2 % 34.0-4 6.6 normal Not Available [facility] ([facility]) [address] [place], [address], 03/06/2025 04:06:56 03/03/20 25 03/04/2025 CBC WITH DIFFE RENTI AL/PL ATELE T MCV 92 fL 79-97 normal Not Available [facility] ([facility]) [address] [place], [address], 03/06/2025 04:06:56 03/03/20 25 03/04/2025 CBC WITH DIFFE RENTI AL/PL ATELE T MCH 27.8 pg 26.6-3 3.0 normal Not Available [facility] ([facility]) [address] [place], [address], 03/06/2025 04:06:56 03/03/20 25 03/04/2025 CBC WITH DIFFE RENTI AL/PL ATELE T MCHC 30.3 g/dL 31.5-3 5.7 below low normal Not Available [facility] ([facility]) [address] [place], [address], 03/06/2025 04:06:56 03/03/20 25 03/04/2025 CBC WITH DIFFE RENTI AL/PL ATELE T RDW 16.0 % 11.7-1 5.4 above high normal Not Available [facility] ([facility]) [address] [place], [address], 03/06/2025 04:06:56 03/03/20 25 03/04/2025 CBC WITH DIFFE RENTI AL/PL ATELE T platelets 340 x10e3 /uL 150-45 0 normal Not Available [facility] ([facility]) [address] [place], [address], 03/06/2025 04:06:56 03/03/20 25 03/04/2025 CBC WITH DIFFE RENTI AL/PL ATELE T neutrophils 59 % not estab. normal Not Available [facility] ([facility]) [address] [place], [address], 03/06/2025 04:06:56 03/03/20 25 03/04/2025 CBC WITH DIFFE RENTI AL/PL ATELE T lymphs 36 % not estab. normal Not Available [facility] ([facility]) [address] [facility], [place], [address], 03/06/2025 04:06:56 03/03/20 25 03/04/2025 CBC WITH DIFFE RENTI AL/PL ATELE T monocytes 5 % not estab. normal Not Available [facility] ([facility]) [address] [facility], [place], [address], 03/06/2025 04:06:56 03/03/20 25 03/04/2025 CBC WITH DIFFE RENTI AL/PL ATELE T eos 0 % not estab. normal Not Available [facility] ([facility]) [address] [place], [address], 03/06/2025 04:06:56 03/03/20 25 03/04/2025 CBC WITH DIFFE RENTI AL/PL ATELE T basos 0 % not estab. normal Not Available [facility] ([facility]) [address] [place], [address], 03/06/2025 04:06:56 03/03/20 25 03/04/2025 CBC WITH DIFFE RENTI AL/PL ATELE T immature cells DYE FEEDER Not Available [facility] ([facility]) [address] [place], [address], 03/06/2025 04:06:56 03/03/20 25 03/04/2025 CBC WITH DIFFE RENTI AL/PL ATELE T neutrophils (absolute) 5.1 x10e3 /uL 1.4-7. 0 normal Not Available [facility] ([facility]) [address] [place], [address], 03/06/2025 04:06:56 03/03/20 25 03/04/2025 CBC WITH DIFFE RENTI AL/PL ATELE T lymphs (absolute) 3.1 x10e3 /uL 0.7-3. 1 normal Not Available [facility] ([facility]) [address] [place], [address], 03/06/2025 04:06:56 03/03/20 25 03/04/2025 CBC WITH DIFFE RENTI AL/PL ATELE T monocytes(ab solute) 0.5 x10e3 /uL 0.1-0. 9 normal Not Available [facility] ([facility]) [address] [place], [address], 03/06/2025 04:06:56 03/03/20 25 03/04/2025 CBC WITH DIFFE RENTI AL/PL ATELE T eos (absolute) 0.0 x10e3 /uL 0.0-0. 4 normal Not Available [facility] ([facility]) [address] [place], [address], 03/06/2025 04:06:56 03/03/20 25 03/04/2025 CBC WITH DIFFE RENTI AL/PL ATELE T baso (absolute) 0.0 x10e3 /uL 0.0-0. 2 normal Not Available [facility] ([facility]) [address] [place], [address], 03/06/2025 04:06:56 03/03/20 25 03/04/2025 CBC WITH DIFFE RENTI AL/PL ATELE T immature granulocytes 0 % not estab. Not Available [facility] ([facility]) [address] [place], [address], 03/06/2025 04:06:56 03/03/20 25 03/04/2025 CBC WITH DIFFE RENTI AL/PL ATELE T immature grans (abs) 0.0 x10e3 /uL 0.0-0. 1 Not Available [facility] ([facility]) [address] [place], [address], 03/06/2025 04:06:56 03/03/20 25 03/04/2025 CBC WITH DIFFE RENTI AL/PL ATELE T NRBC DYE FEEDER Not Available [facility] ([facility]) [address] [facility], [place], [address], 03/06/2025 04:06:56 03/03/20 25 03/04/2025 CBC WITH DIFFE RENTI AL/PL ATELE T hematology comments: DYE FEEDER Not Available [facility] ([facility]) [address] [facility], [place], [address], 03/06/2025 04:06:56 03/03/20 25 03/04/2025 COMP. METAB OLIC PANEL (14) glucose 79 mg/dL 70-99 normal Not Available [facility] ([facility]) [address] [place], [address], 03/06/2025 04:06:57 03/03/20 25 03/04/2025 COMP. METAB OLIC PANEL (14) BUN 10 mg/dL 6-24 normal Not Available [facility] ([facility]) [address] [place], [address], 03/06/2025 04:06:57 03/03/20 25 03/04/2025 COMP. METAB OLIC PANEL (14) creatinine 0.77 mg/dL 0.57-1 .00 normal Not Available [facility] ([facility]) [address] [place], [address], 03/06/2025 04:06:57 03/03/20 25 03/04/2025 COMP. METAB OLIC PANEL (14) eGFR 93 mL/mi n/1.7 3 >59 normal Not Available [facility] ([facility]) [address] [place], [address], 03/06/2025 04:06:57 03/03/20 25 03/04/2025 COMP. METAB OLIC PANEL (14) BUN/creatini ne ratio 13 9-23 normal Not Available [facility] ([facility]) [address] [facility] [place], [address], 03/06/2025 04:06:57 03/03/20 25 03/04/2025 COMP. METAB OLIC PANEL (14) sodium 141 mmol/ L 134-14 4 normal Not Available [facility] ([facility]) [address] [facility] [place], [address], 03/06/2025 04:06:57 03/03/20 25 03/04/2025 COMP. METAB OLIC PANEL (14) potassium 4.1 mmol/ L 3.5-5. 2 normal Not Available [facility] ([facility]) [address] [facility] [place], [address], 03/06/2025 04:06:57 03/03/20 25 03/04/2025 COMP. METAB OLIC PANEL (14) chloride 104 mmol/ L 96-106 normal Not Available [facility] ([facility]) [address] [facility] [place], [address], 03/06/2025 04:06:57 03/03/20 25 03/04/2025 COMP. METAB OLIC PANEL (14) carbon dioxide, total 21 mmol/ L 20-29 normal Not Available [facility] ([facility]) [address] [facility] [place], [address], 03/06/2025 04:06:57 03/03/20 25 03/04/2025 COMP. METAB OLIC PANEL (14) calcium 9.4 mg/dL 8.7-10 .2 normal Not Available [facility] ([facility]) [address] [facility] [place], [address], 03/06/2025 04:06:57 03/03/20 25 03/04/2025 COMP. METAB OLIC PANEL (14) protein, total 6.7 g/dL 6.0-8. 5 normal Not Available [facility] ([facility]) [address] [place], [address], 03/06/2025 04:06:57 03/03/20 25 03/04/2025 COMP. METAB OLIC PANEL (14) albumin 4.2 g/dL 3.8-4. 9 normal Not Available [facility] ([facility]) [address] [place], [address], 03/06/2025 04:06:57 03/03/20 25 03/04/2025 COMP. METAB OLIC PANEL (14) globulin, total 2.5 g/dL 1.5-4. 5 Not Available [facility] ([facility]) [address] [facility] [place], [address], 03/06/2025 04:06:57 03/03/20 25 03/04/2025 COMP. METAB OLIC PANEL (14) bilirubin, total 0.2 mg/dL 0.0-1. 2 normal Not Available [facility] ([facility]) [address] [facility] [place], [address], 03/06/2025 04:06:57 03/03/20 25 03/04/2025 COMP. METAB OLIC PANEL (14) alkaline phosphatase 164 IU/L 44-121 above high normal Not Available [facility] ([facility]) [address] [facility] [place], [address], 03/06/2025 04:06:57 03/03/20 25 03/04/2025 COMP. METAB OLIC PANEL (14) AST (SGOT) 14 IU/L 0-40 normal Not Available [facility] ([facility]) [address] [facility] [place], [address], 03/06/2025 04:06:57 03/03/20 25 03/04/2025 COMP. METAB OLIC PANEL (14) ALT (SGPT) 18 IU/L 0-32 normal Not Available [facility] ([facility]) [address] [place], [address], 03/06/2025 04:06:57 03/03/20 25 03/04/2025 LIPID PANEL cholesterol, total 277 mg/dL 100-19 9 above high normal Not Available [facility] ([facility]) [address] [place], [address], 03/06/2025 04:06:57 03/03/20 25 03/04/2025 LIPID PANEL triglyceride s 492 mg/dL 0-149 above high normal Not Available [facility] ([facility]) [address] [place], [address], 03/06/2025 04:06:57 03/03/20 25 03/04/2025 LIPID PANEL HDL cholesterol 34 mg/dL >39 below low normal Not Available [facility] ([facility]) [address] [place], [address], 03/06/2025 04:06:57 03/03/20 25 03/04/2025 LIPID PANEL VLDL cholesterol raffi 94 mg/dL 5-40 above high normal Not Available [facility] ([facility]) [address] [place], [address], 03/06/2025 04:06:57 03/03/20 25 03/04/2025 LIPID PANEL LDL chol calc [facility] 149 mg/dL 0-99 above high normal Not Available [facility] ([facility]) [address] [place], [address], 03/06/2025 04:06:57 03/03/20 25 03/04/2025 LIPID PANEL LDL calc comment: DYE FEEDER Not Available [facility] ([facility]) [address] [place], [address], 03/06/2025 04:06:57 03/03/20 25 03/04/2025 HCV ANTIB TOVA CASCA DE(PC R/GEN O) HCV Ab Non Reacti ve non reacti ve Not Available [facility] ([facility]) [address] [facility], [place], [address], 03/06/2025 04:06:58 03/03/2003/04/2025 HCV ANTIB TOVA CASCA DE(PC R/GEN O) interpretati on: Commen t Not infec laverne with HCV unles s early or acute infec tion is suspe cted (whic h may be delay ed in an immun ocomp romis ed indiv idual ), or other evide nce exist s to indic ate HCV infec tion. Not Available [facility] ([facility]) [address] [facility], [place], [address], 03/06/2025 04:06:58 03/03/20 25 03/04/2025 RHEUM ATOID FACTO R (RF) rheumatoid factor (rf) 19.2 IU/mL <14.0 above high normal Not Available [facility] ([facility]) [address] [facility], [place], [address], 03/06/2025 04:06:58 03/03/20 25 03/04/2025 HIV AB/P2 4 AG WITH REFLE X HIV Ab/P24 Ag screen Non Reacti ve non reacti ve HIV-1 /HIV- 2 antib odies and HIV-1 p24 antig en were NOT detec laverne. There is no labor atory evide nce of HIV infec tion. HIV Negat briseyda Not Available [facility] ([facility]) [address] [facility], [place], [address], 03/06/2025 04:06:59 03/03/20 25 03/04/2025 TSH RFX ON ABNOR MAL TO FREE T4 TSH 1.580 uIU/m L 0.450- 4.500 normal Not Available [facility] ([facility]) [address] [facility], [place], [address], 03/06/2025 04:06:59 03/03/20 25 03/06/2025 LEVTALON FRANCO ([facility]), S levetiraceta m, S 56.1 ug/mL 10.0-4 0.0 above high normal Not Available [facility] ([facility]) [address] [place], [address], 03/06/2025 04:07:00 03/03/20 25 03/04/2025 ANTIN UCLEA R AB MULTI PLEX RFX 9 ROSIE direct Negati ve negati ve Not Available [facility] ([facility]) [address] [place], [address], 03/06/2025 04:07:00 04/24/20 25 04/25/2025 COMP. METAB OLIC PANEL (14) glucose 76 mg/dL 70-99 normal Not Available [facility] ([facility]) [address] [facility], [place], [address], 04/28/2025 15:07:39 04/24/20 25 04/25/2025 COMP. METAB OLIC PANEL (14) BUN 11 mg/dL 6-24 normal Not Available [facility] ([facility]) [address] [place], [address], 04/28/2025 15:07:39 04/24/20 25 04/25/2025 COMP. METAB OLIC PANEL (14) creatinine 0.82 mg/dL 0.57-1 .00 normal Not Available [facility] ([facility]) [address] [place], [address], 04/28/2025 15:07:39 04/24/20 25 04/25/2025 COMP. METAB OLIC PANEL (14) eGFR 87 mL/mi n/1.7 3 >59 normal Not Available [facility] ([facility]) [address] [place], [address], 04/28/2025 15:07:39 04/24/20 25 04/25/2025 COMP. METAB OLIC PANEL (14) BUN/creatini ne ratio 13 9-23 normal Not Available [facility] ([facility]) [address] [place], [address], 04/28/2025 15:07:39 04/24/20 25 04/25/2025 COMP. METAB OLIC PANEL (14) sodium 142 mmol/ L 134-14 4 normal Not Available [facility] ([facility]) [address] [place], [address], 04/28/2025 15:07:39 04/24/20 25 04/25/2025 COMP. METAB OLIC PANEL (14) potassium 4.9 mmol/ L 3.5-5. 2 normal Not Available [facility] ([facility]) [address] [place], [address], 04/28/2025 15:07:39 04/24/20 25 04/25/2025 COMP. METAB OLIC PANEL (14) chloride 102 mmol/ L 96-106 normal Not Available [facility] ([facility]) [address] [place], [address], 04/28/2025 15:07:39 04/24/20 25 04/25/2025 COMP. METAB OLIC PANEL (14) carbon dioxide, total 24 mmol/ L 20-29 normal Not Available [facility] ([facility]) [address] [facility] [place], [address], 04/28/2025 15:07:39 04/24/20 25 04/25/2025 COMP. METAB OLIC PANEL (14) calcium 10.0 mg/dL 8.7-10 .2 normal Not Available [facility] ([facility]) [address] [facility] [place], [address], 04/28/2025 15:07:39 04/24/20 25 04/25/2025 COMP. METAB OLIC PANEL (14) protein, total 7.3 g/dL 6.0-8. 5 normal Not Available [facility] ([facility]) [address] [facility] [place], [address], 04/28/2025 15:07:39 04/24/20 25 04/25/2025 COMP. METAB OLIC PANEL (14) albumin 4.5 g/dL 3.8-4. 9 normal Not Available [facility] ([facility]) [address] [facility] [place], [address], 04/28/2025 15:07:39 04/24/20 25 04/25/2025 COMP. METAB OLIC PANEL (14) globulin, total 2.8 g/dL 1.5-4. 5 Not Available [facility] ([facility]) [address] [facility] [place], [address], 04/28/2025 15:07:39 04/24/20 25 04/25/2025 COMP. METAB OLIC PANEL (14) bilirubin, total <0.2 mg/dL 0.0-1. 2 Not Available [facility] ([facility]) [address] [facility], [place], [address], 04/28/2025 15:07:39 04/24/20 25 04/25/2025 COMP. METAB OLIC PANEL (14) alkaline phosphatase 166 IU/L 44-121 above high normal Not Available [facility] ([facility]) [address] [facility] [place], [address], 04/28/2025 15:07:39 04/24/20 25 04/25/2025 COMP. METAB OLIC PANEL (14) AST (SGOT) 17 IU/L 0-40 normal Not Available [facility] ([facility]) [address] [facility] [place], [address], 04/28/2025 15:07:39 04/24/20 25 04/25/2025 COMP. METAB OLIC PANEL (14) ALT (SGPT) 27 IU/L 0-32 normal Not Available [facility] ([facility]) [address] [place], [address], 04/28/2025 15:07:39 04/24/20 25 04/25/2025 LIPID PANEL cholesterol, total 181 mg/dL 100-19 9 normal Not Available [facility] ([facility]) [address] [place], [address], 04/28/2025 15:07:40 04/24/20 25 04/25/2025 LIPID PANEL triglyceride s 226 mg/dL 0-149 above high normal Not Available [facility] ([facility]) [address] [place], [address], 04/28/2025 15:07:40 04/24/20 25 04/25/2025 LIPID PANEL HDL cholesterol 40 mg/dL >39 normal Not Available [facility] ([facility]) [address] [place], [address], 04/28/2025 15:07:40 04/24/20 25 04/25/2025 LIPID PANEL VLDL cholesterol raffi 39 mg/dL 5-40 Not Available [facility] ([facility]) [address] [place], [address], 04/28/2025 15:07:40 04/24/20 25 04/25/2025 LIPID PANEL LDL chol calc ([facility]) 102 mg/dL 0-99 above high normal Not Available [facility] ([facility]) [address] [place], [address], 04/28/2025 15:07:40 04/24/20 25 04/25/2025 LIPID PANEL LDL calc comment: DYE FEEDER Not Available [facility] ([facility]) [address] [place], [address], 04/28/2025 15:07:40 04/24/20 25 04/28/2025 DEMETRIUS FRANCO ([facility]), S levetiraceta m, S 31.6 ug/mL 10.0-4 0.0 Not Available [facility] ([facility]) [address] [place], [address], 04/28/2025 15:07:40 02/12/20 25 02/10/2025 XR, chest , 2 view No observ ation record ed. [address], [place], [address], 02/11/2025 08:14:50 02/26/20 25 XR, knee, 3 view No observ ation record ed. [facility], [address], 02/25/2025 14:50:37 03/03/20 25 XR, hand, 3 or more view No observ ation record ed. [address], [address], 03/06/2025 09:49:14 03/27/20 25 03/27/2025 MRI, knee, w/o contr ast No observ ation record ed. [address] (Radiology) [address] , [place], [address], 04/01/2025 12:35:30 05/09/20 25 05/09/2025 CT, angio gram, abdom en + pelvi s, w/ contr ast No observ ation record ed. [address], [place], [address], 05/13/2025 13:52:02 05/09/20 25 05/09/2025 elect randolph lafleur am, routi ne ECG, 12 leads min No observ ation record ed. [address], [place], [address], 05/13/2025 13:51:39 Result Notes None recorded. Problems Name Problem SNOMED Code Status Onset Date Resolution Date Notes Provider Name and Address Organization Details Recorded Time Migraine 62745260 Active 2023 Ml Alba NP [address] [place] [address], [address]3557[address] 8, [place] [employer] 14:25:25 Acute exacerbat ion of chronic obstructi ve pulmonary disease 537937633 Completed 202303/02/2025 Ml Alba NP [address] [place] [address], 8[address]87[address]772 8, [place] [employer] 15:10:44 Insomnia 462350319 Active 2023 Ml Alba NP [address] [place] [address], [address]887 8, [place] [employer] 14:25:22 Gastroeso phageal reflux disease 334540086 Active 2023 Ml Alba NP [address] [place] [address], 06964-000 8, [place] [employer] 14:25:18 Seizure disorder 562763985 Active 2023 Ml Alba NP [address] [place] [address], [address] 8, [place] [employer] 14:25:32 Nicotine dependenc e 51684682 Active 2024 Ml Alba NP [address] [place] [address], 57[address]417 8, [place] [employer] 14:37:01 Anxiety 38427538 Active 2024 Ml Alba NP [address] [place] [address], 538[address] 8, [place] [employer] 5 15:10:49 Chronic pain 06960149 Active 2024 Ml Alba NP [address] [place] [address], 69933-137 8, [place] [employer] 5 08:13:35 Pain of left knee joint 025024189455 107 Active 2024 Ml Alba NP [address] [place] [address], 85136[address]997 8, [employer] 5 08:13:23 Body mass index 25-29 - overweigh t 139183720 Active 2024 Ml Alba NP [address] [place] [address], 48960-218 8, [employer] 5 08:13:37 Pain of knee region 3295118042 Active 2024 Ml Alba NP [address] [place] [address], 99601-451 8, [employer] 5 08:13:24 Moderate recurrent major depressio n 56860831 Active 2024 Ml Alba NP [address] [place] [address], 07056-996 8, [employer] 5 08:05:39 Pain of right hand 961114066245 109 Active 2024 Ml Alba NP [address] [place] [address], 71125-615 8, [employer] 5 08:13:26 Overweigh t in adulthood with body mass index of 25 or more but less than 30 220890474 Completed 202403/23/2025 Ml Alba NP [address] [place] [address], 01169-533 8, [employer] 5 08:05:45 Pain of bilateral hands 894348444524 43599 Active 2024 Ml Alba NP [address] [place] [address], 32854-801 8, [employer] 5 08:13:25 Mixed hyperlipi demia 005836111 Active 2024 Ml Alba NP [address] [place] [address], 52227-632 8, [employer] 5 08:13:33 Rheumatoi d factor detected 268196279 Active 2024 Ml Alba NP [address] [place] [address], 79871-024 8, [employer] 08:13:22 Allergic rhinitis 46518873 Active 2024 Ml Alba NP [address] [place] [address], 18508-730 8, [employer] 08:05:32 Pain in face 88332772 Completed 202406/19/2025 Ml Alba NP [address] [place] [address], 57436-069 8, [place] [employer] 08:05:49 Primary insomnia 6608277 Active 2024 Ml Alba NP [address] [place] [address], 11459-051 8, [employer] 08:05:50 Overweigh t in adulthood with body mass index of 25 or more but less than 30 972479794 Completed 202406/19/2025 Ml Alba NP [address] [place] [address], 17313-847 8, [employer] 08:05:45 Generaliz ed abdominal pain 105752732 Completed 202406/19/2025 Ml Alba NP [address] [place] [address], 14591[address]920 8, [employer] 08:05:38 Swollen abdomen 55975873 Completed 202406/19/2025 Ml Alba NP [address] [place] [address], 70469[address]890 8, [employer] 08:05:52 Colitis 80828086 Completed 202406/19/2025 Ml Alba NP [address] [place] [address], 10552-818 8, [employer] 08:05:34 Eruption 462855418 Completed 202406/19/2025 Ml Alba NP [address] [place] [address], 04106-908 8, [place] [employer] 08:05:36 Problem Notes None recorded. Procedures Surgical History Date Name Laterality Status Provider Name and Address Organization Details Recorded Time [facility] 13:36:37 tonsilectomy/magdalene oids completed [id number] 07/18/2024 13:40:46 Carpal Tunnel Surgery completed [employer]. 07/18/2024 13:40:52 Other completed [id number] [employer]. 07/18/2024 13:41:06 Imaging Results None recorded. Procedure Notes None recorded. Medical Equipment None Reported. Allergies Allergen ID Allergen Name Allergen Category Reaction Reaction Severity Criticality Documentation Date Start Date Code Code System Note Provider Name and Address Organization Details Recorded Time 44836 Product containin g penicilli n (product) medicatio n rash Not available Not available 07/18/2024 28630 8001 SNOMED [facility] [email or web address] 13:36:36 Medications Name Sig Start Date Stop Date Status Note LastModified by Organization Details LastModified Time celecoxib 200 mg capsule TAKE 1 CAPSULE 1 TIME EACH DAY FOR KNEE active Not Available Not Available No t Available atorvastat in 40 mg tablet TAKE 1 TABLET 1 TIME EACH DAY AT BEDTIME FOR CHOLESTE ROL active Not Available Not Available No t Available gabapentin 600 mg tablet TAKE 1 TABLET 3 TIMES EACH DAY 2024 active Not Available Not Available Not Avai lable atorvastat in 20 mg tablet TAKE 1 TABLET 1 TIME EACH DAY AT BEDTIME FOR CHOLESTE ROL 05/13 completed Not Available Not Available Not Available cetirizine 10 mg tablet TAKE 1 TABLET 1 TIME EACH DAY active Not Available Not Available No t Available azithromyc in 250 mg tablet TAKE 2 TABLETS ON THE FIRST DAY, THEN TAKE 1 TABLET EACH DAY ON THE NEXT 4 DAYS. 02/24 completed Not Available Not Available Not Available ibuprofen 800 mg tablet TAKE 1 TABLET 2 TIMES EACH DAY NEEDED 07/18 completed Not Available Not Available Not Available levetirace franco 500 mg tablet TAKE 1 TABLET 2 TIMES EACH DAY 07/18 completed Not Available Not Available Not Available prednisone 20 mg tablet TAKE 2 TABLETS 1 TIME EACH DAY FOR 4 DAYS 02/24 completed Not Available Not Available Not Available metronidaz ole 500 mg tablet TAKE 1 TABLET 3 TIMES EACH DAY FOR 10 DAYS 05/20 completed Made her sick to her stomach . Not Available Not Available Not Available ciprofloxa rico 500 mg tablet TAKE 1 TABLET 2 TIMES EACH DAY FOR 10 DAYS active Not Available Not Available No t Available omeprazole 40 mg capsule,de layed release TAKE 1 CAPSULE 1 TIME EACH DAY active Not Available Not Available No t Available doxycyclin e monohydrat e 100 mg tablet Take 1 tablet twice a day by oral route as directed for 10 days, for infectio n. 09/18 completed Not Available Not Available Not Available gabapentin 800 mg tablet Take 1 tablet 4 times a day by oral route as directed for 30 days, for seizures . 03/23 completed Pt states she takes 600 Not Available Not Available Not Available doxycyclin e monohydrat e 100 mg capsule TAKE 1 CAPSULE 2 TIMES EACH DAY FOR 10 DAYS 09/18 completed Not Available Not Available Not Available hydrocorti sone 2.5 % topical cream APPLY A THIN FILM TO THE AFFECTED AREA OF SKIN 2 TIMES EACH DAY active Not Available Not Available No t Available levetirace franco 750 mg tablet TAKE 1 TABLET 2 TIMES EACH DAY FOR SEIZURES 2024 active Not Available Not Available Not Avai lable diclofenac sodium 50 mg tablet,del ayed release TAKE 1 TABLET 2 TIMES EACH DAY NEEDED FOR ARTHRITI S PAIN 2024 active Not Available Not Available Not Avai lable ketorolac 60 mg/2 mL intramuscu lar solution Administ er 60 mg IM x 1 dose 03/23 completed Not Available Not Available Not Available bromphenir amine-pseu doephedrin e-DM 2 mg-30 mg-10 mg/5 mL oral syrup TAKE 10ML EVERY 4 TO 6 HOURS NEEDED FOR COUGH FOR 10 DAYS 09/18 completed Not Available Not Available Not Available amitriptyl ine 100 mg tablet TAKE 3 TABLETS 1 TIME EACH DAY AT BEDTIME FOR SLEEP 2024 active Not Available Not Available Not Avai lable amoxicilli n 875 mg-potassi um clavulanat e 125 mg tablet TAKE 1 TABLET 2 TIMES EACH DAY 02/24 completed Not Available Not Available Not Available duloxetine 30 mg capsule,de layed release TAKE 1 CAPSULE 1 TIME EACH DAY 04/24 completed Not Available Not Available Not Available duloxetine 60 mg capsule,de layed release TAKE 1 CAPSULE 1 TIME EACH DAY active Not Available Not Available No t Available levetirace franco 1,000 mg tablet TAKE 1 TABLET 2 TIMES EACH DAY 03/18 completed Not Available Not Available Not Available Vraylar 1.5 mg capsule TAKE 1 CAPSULE 1 TIME EACH DAY active Not Available Not Available No t Available Vitals Date Recorded Body height Body mass index (BMI) Body weight Heart rate Oxygen saturation Oxygen saturation in Arterial blood by Pulse oximetry Systolic And Diastolic Provider Name and Address Organization Details Last Updated DateTime 5 171.45 cm 27 kg/m2 97719.3 6 g 100 /min 98 % 98 % 110/76 mm[Hg] Jayne [employer] 5 14:29:17 Date Recorded Body height Body mass index (BMI) Body weight Heart rate Oxygen saturation Oxygen saturation in Arterial blood by Pulse oximetry Systolic And Diastolic Provider Name and Address Organization Details Last Updated DateTime 5 171.45 cm 27.7 kg/m2 43561.1 3 g 97 /min 97 % 97 % 127/77 mm[Hg] Winnie [employer] 5 10:41:49 Date Recorded Body height Body mass index (BMI) Body weight Heart rate Oxygen saturation Oxygen saturation in Arterial blood by Pulse oximetry Systolic And Diastolic Provider Name and Address Organization Details Last Updated DateTime 5 171.45 cm 28.7 kg/m2 16513.5 8 g 104 /min 95 % 95 % 130/78 mm[Hg] Elizabet [employer] 5 08:53:00 Date Recorded Body height Body mass index (BMI) Body weight Heart rate Oxygen saturation Oxygen saturation in Arterial blood by Pulse oximetry Systolic And Diastolic Provider Name and Address Organization Details Last Updated DateTime 5 171.45 cm 28.4 kg/m2 33906.4 g 102 /min 98 % 98 % 123/84 mm[Hg] Jayne Hudson [employer] 11:44:20 Date Recorded Body height Body mass index (BMI) Body weight Heart rate Oxygen saturation Oxygen saturation in Arterial blood by Pulse oximetry Systolic And Diastolic Provider Name and Address Organization Details Last Updated DateTime 171.45 cm 29.5 kg/m2 32186.5 4 g 95 /min 98 % 98 % 124/74 mm[Hg] Jayne [employer] 5 11:06:24 Social History Question Answer Notes LastModified by [employer] ion Details LastModified Time Tobacco Smoking Status Current Every Day Smoker [employer]. 07/18/2024 13:36:36 Do You Have An Advance Directive? No Information n ot available 07/18/2024 Is Your Home Air Conditioned? Yes Information not available 07/18/2024 Do You Wear A Helmet When Biking? No Information not available 07/18/2024 Are You Blind Or Do You Have Difficulty Seeing? No Information n ot available 07/18/2024 What Is Your Level Of Caffeine Consumption? Heavy Information not available 07/18/2024 What Type Of Chief Cloth Finishing Range Operator Do You Use? None Information not available 07/18/2024 In The 14 Days Before Symptom Onset, Have You Had Close Contact With A Laboratory-confirm ed COVID-19 While That Case Was Ill? No Information n ot available 09/18/2024 In The 14 Days Before Symptom Onset, Have You Had Close Contact With A Person Who Is Under Investigation For COVID-19 While That Person Was Ill? No [email or web address] Information not available 09/18/2024 Have You Been To An Area Known To Be High Risk For COVID-19? No Information not available 07/18/2024 Are You Deaf Or Do You Have Serious Difficulty Hearing? No Information not available 07/18/2024 What Type Of Diet Are You Following? REGULAR Information n ot available 07/18/2024 What Is The Highest Grade Or Level Of School You Have Completed Or The Highest Degree You Have Received? [id number] Information not available 07/18/2024 Have There Been Any Changes To Your Family Or Social Situation? No Information no t available 07/18/2024 Are There Any Guns Present In Your Home? No Information not available 07/18/2024 Which Of Your Hands Is Dominant? Right Information n ot available 07/18/2024 What Is Your Home Situation? Other Information not available 07/18/2024 Do You Have A Medical Power Of Technology Sales Specialist? No Information not available 07/18/2024 What Was The Date Of Your Most Recent Tobacco Screening? 05/20/2025 [email or web address] Information not available 05/20/2025 What Is Your Current Pack Years? [email or web address] Information not available 04/24/2025 Do You Have Any Pets? Yes Information not available 07/18/2024 Do You Use Protection During Sex? Usually Information not available 07/18/2024 What Is Your Relationship Status? Information not available 07/18/2024 Have You Repeated Any Grades? Yes Information not available 07/18/2024 Do You Use Your Seat Belt Or Car Seat Routinely? Yes Information not available 07/18/2024 Are You Sexually Active? Yes Information not available 07/18/2024 Do You Have Any Siblings? 1 Information not available 07/18/2024 At What Age Did You Start Smoking Tobacco? 13 Information not available 07/18/2024 Are You Passively Exposed To Smoke? Yes Information no t available 07/18/2024 Are There Any Smokers In Your House? Yes Information not available 07/18/2024 How Much Tobacco Do You Smoke? 1 PPD Information not available 07/18/2024 Do You Participate In Social Media? Yes Information not available 07/18/2024 Do You Use Sunscreen Routinely? No Information not available 07/18/2024 Has Tobacco Cessation Counseling Been Provided? Yes Information not available 07/18/2024 On What Date Was Tobacco Cessation Counseling Provided? 05/20/2025 [email or web address] Information not available 05/20/2025 Have You Recently Traveled Abroad? No Information not available 07/18/2024 Do You Have Difficulty Walking Or Climbing Stairs? No Information not available 07/18/2024 Are You Currently In School? No Information not available 07/18/2024 Do You Have Any Dietary Restrictions? No Information not available 07/18/2024 Sex: Female Functional Status Question Answer Note LastModified by Organizat ion Details LastModified Time Do you use any illicit or recreational drugs? No Information not available 07/18/2024 Do you or have you ever used any other forms of tobacco or nicotine? No Information not available 07/18/2024 What is your level of alcohol consumption? None Information not available 07/18/2024 Are you currently employed? No Information not available 07/18/2024 Do you have transportation difficulties? No Information not available 07/18/2024 Are you able to walk independently without assistance or assistive devices? [email or web address] Information not available 07/18/2024 Do you have difficulty doing errands alone? No Information not available 07/18/2024 Are you able to care for yourself independently? Yes Information not available 07/18/2024 Do you have difficulty dressing, bathing, grooming, or toileting? No Information not available 07/18/2024 What is your exercise level? None Information not available 07/18/2024 Mental Status Question Answer Note LastModified by Organizat ion Details LastModified Time Do you feel stressed (tense, restless, nervous, or anxious, or unable to sleep at night)? [id number] Information not available 07/18/2024 Do you have difficulty concentrating, remembering or making decisions? Yes Information no t available 07/18/2024 Are you or have you been involved with bullying? No Information not available 07/18/2024 Family History Relationship Description Onset Age of this Age Resolved Age Notes LastModified by Organization Details LastModified Time Father Diabetes mellitus Not available 2023 13:39:06 Medical History Condition Response Coronary Artery Disease N Other N Gout N Blood Diseases N Kidney Stones N Hyperthyroidism N Blood Transfusion N Breast Cancer N Emergency room visit since last appointm ent. N Lung Disease N COPD N Depression Y Hypothyroidism N Dermatologic Disorders N Defects or Inherited Disease N Developmental or Behavioral Disorders N Breast Problem N Difficulty Swallowing N Anesthesia Complications N History of STI N Anxiety Disorder Y Meniere's disease N Autoimmune disease N Muscle, Joint, or Bone Problems N Vision or Eye Problems N Arthritis N Infertility N Polyps N Mental Disorder N Congenital Anomalies N Acid Reflux (GERD) N Cancer N Stroke N Neurologic/Epilepsy Y Endometriosis N Bladder or Kidney Problems N High Cholesterol N Liver Disease N Organ Transplant N Psychiatric/Mental Health Condition N Dialysis N Headaches N Fibromyalgia N Schizophrenia N Kidney Disease N Allergies/Hayfever N Heart Problems N Ear or Hearing Problems N Hospitalizations N Learning Disorder N Artificial Joints N Thyroid Problems N GI Problems N Acne N ADD/ADHD N Eating Disorder N Anemia N Constipation N Mental Illness N Diabetes N Ovarian Cancer N Bedwetting N Hepatitis/Liver Disease N Tuberculosis N Eczema N Abuse/Domestic Violence N Diverticulitis N Asthma N Trauma/Violence N Substance Abuse N Reflux/GERD N Depression/ depression N Hepatitis N Heart Disease N Pulmonary Embolism N Tourette Syndrome N Chronic Ear Infections N Pre-Eclampsia N Hypertension N Chicken Pox N Autism Spectrum Disorder (ASD) N Osteoporosis N Thrombophilias N Gynecological History Statement/Question Response Menses Monthly N HPV Vaccine N Date of Last Pap Smear Most Recent Mammogram Obstetrics History GPAL:G 0 P 0 0 0 0 Immunizations Vaccine Type Date Status Note Provider Nam e and Address Organization Details Recorded Time Tdap 03/23/2025 completed Winnie lundy [employer] 03/23/2025 12:05:17 zoster recombinant 03/23/2025 completed Winnie lundy [employer] 03/23/2025 12:05:17 COVID-19, mRNA, LNP-S, PF, 100 mcg/0.5mL dose or 50 mcg/0.25mL dose 09/22/2021 completed Ml Alba NP [address] [place] [address], [address], [employer] 09/18/2024 14:16:28 COVID-19, mRNA, LNP-S, PF, 100 mcg/0.5mL dose or 50 mcg/0.25mL dose 01/13/2021 completed Ml Alba NP [address] [place], [address], [facility] [employer] 09/18/2024 14:16:28 Tdap 02/23/2016 completed Ml Alba NP [address] [place], [address], [facility] [employer] 09/18/2024 14:16:28 Past Encounters Encounter ID Performer Location Encounter Start Date Encounter Closed Date Diagnosis/Indication Diagnosis SNOMED-CT Code Diagnosis ICD10 Code Diagnosis IMO Codes Diagnosis Note [id number] CHRISTINE Donohue [facility] [address] [place] [address] 07/18/2024 12:59:46 07/18/2024 13:56:58 Screening mammography 23341049 Z12.31 Sore throat 241210727 J0 2.9 Acute exac erbation of chronic obstructive pulmonary disease 468680049 J44.1 Insomnia 837614570 G47.0 0 Gastroesop hageal reflux disease 799574358 K21.9 [id number] Ml Alba NP [place] [id number] 09/18/2024 13:43:30 09/18/2024 14:45:04 Screening for malignant neoplasm of colon 158414938 Z12.11 Seizure disorder 5633796 02 G40.909 Screening for cardiovascular system disease 323904478 Z13.6 Medication monitoring 39 0018291 Z51.81 HIV screening 945028868 Z11.4 Hepatitis C screening 41 3180250 Z11.59 Anxiety 15363841 F41.9 Body mass index 20-24 - normal 533439329 Z68.24 [id number] Haydee Russ APRN [address] [address] 02/24/2025 13:48:00 02/24/2025 14:44:53 Pain of left knee joint 4916549436 34941 M25.562 [id number] RICE, celebrex, tylenol, and refer to Ortho. Continue knee brace. Body mass index 25-29 - overweight 708314831 E66.3 57661326 [id number] [place] [address] 03/02/2025 14:06:50 03/02/2025 15:32:42 Overweight in adulthood with body mass index of 25 or more but less than 30 121774678 Z68.26 E66.3 Z68.27 545310 3805620998 Anxiety 22252811 F41.9 Seizure disorder 0699029 02 G40.909 Pain of knee region 1003 369709 M25.562 49400995 Moderate r ecurrent major depression 41135815 F33.1 63962119 Pain of right hand 08761 39216 40160 M79.641 567667 Hyperlipid emia screening 541812619 Z13.220 495352 Viral scre ening status 844424595 Z11.59 571611 HIV screening 819520338 Z11.4 979021 [id number] Ml Alba NP [place] [address] 03/23/2025 10:30:43 03/23/2025 11:38:22 Mixed hyperlipidemia 433965183 E78.2 70470 Moderate r ecurrent major depression 72999278 F33.1 28549255 Seizure disorder 4891224 02 G40.909 Immunization due 6524505 08 Z23 7293773 Allergic rhinitis 183641 04 J30.9 4936337672 Pain in face 90030560 R5 1.9 90331216 [id number] [place] [address] 04/24/2025 08:39:48 04/24/2025 09:50:56 Moderate recurrent major depression 95168629 F33.1 Seizure disorder 7972222 02 G40.909 Mixed hyperlipidemia 267 807789 E78.2 Screening mammography 24 323501 Z12.31 7783418082 Allergic rhinitis 725542 04 J30.9 Overweight in adulthood with body mass index of 25 or more but less than 30 696897069 E66.3 Z68.28 [id number] Ml Alba NP [address] 0 05/13/2025 11:20:16 05/13/2025 12:00:21 Generalized abdominal pain 810669249 R10.84 356423 Swollen abdomen 44360566 R14.0 [id number] Ml Alba NP [facility] [place] [address] [place] [address] 05/20/2025 10:57:48 05/20/2025 12:00:38 Colitis 93758374 K52.9 478211 Eruption 975557891 R21 15956 Overweight in adulthood with body mass index of 25 or more but less than 30 743785056 Z68.29 507416 Health Concerns Section Related Observation LastModified by Organization Detai ls LastModified Time None Recorded Concern Status LastModified by Organization Details LastModified Time None Recorded Advance Directives Directive N: Payers Insurance Date Sequence Insurance Name Policy Number Policy Ferrer Covered Member ID Ferrer Member ID Guarantor Name 10/22/2024 1 UNSPECIFIED REMIT PAYOR Marilee Christa 06/16/2025 1 [facility] (MEDICAID HMO) Marilee Christa [id number] Marilee Christa 01/13/2025 1 UNSPECIFIED REMIT PAYOR Marilee Christa 02/04/2025 SLIDING FEE SCHEDULE - DISCOUNT Marilee Christa Notes Date Note Type Note Provider Name and Address Organization Details Recorded Time 03/02/2025 text/html Patient presents for evaluation of left knee pain.States her left knee started hurting about a month ago. She felt a pop in her knee at time injury. She was in the yard squatting down and felt a pop. States that when she woke up the next morning after squatting it was really hurting and swollen. She states she thinks she had a tear and needs an MRI.She was evaluated last week and referred to ortho but has not heard back.She has been out of her gabapentin (has not filled since August) and has been taking it infrequently not as prescribed. She states that she has had 3 seizures since her last visit. She did see Dr. Mast, but wants referral to a different specialist.She also states that she is anxious all the time and irritable. She has tried medications for her mood before but it has not helped. She denies SI. She does admit some depression at times. Ml Alba NP [address] [place], [address], [employer] 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 She cut her thumb. Cannot recall last tdap. A little sore.Depression - She took vraylar for a few days but it made her dizzy. She states she stopped vraylar and the dizziness resolved. She does not want to try it again. Neurology - she has an appointment for an MRI on Sunday. [place], [place]. Neuro with [facility] is pending. She has had more frequent headaches. Allergies are also flaring up and needs anti-histamine. Left knee pain - going well with ortho. He is ordering an MRI. She is wearing knee support. Ml Alba NP [address] [place], [address], [employer] 04/02/2025 14:51:26 04/24/2025 text/html Patient presents for follow up. She had to r/s rheumatology appt. She states she has not heard from neuro yet, but no seizures. Duloxetine has helped a lot with her mood. She is much less irritable. No improvement of her pain with it. She wonders if we can increase dose. Ml Alba NP [address] [place], [address], [employer] 04/24/2025 19:17:40 05/13/2025 text/html Patient presents for evaluation of abdominal pain. States she went to ER and they didn't do anything. She states it is worse today, her abdomen is distended and appears mottled. She has not had a fever, but she winces changing positions and states the pain is constant. She has had black tarry stools. Ml Alba NP [address] [place], [address], [employer] 05/18/2025 19:55:58 05/20/2025 text/html Patient presents for follow up on abd pain. She was treated in ER for colitis. Her GI panel was negative. She is improving with cipro. She states she still has a few doses left. She is asking for a colonoscopy.She also states that she has rash on her right knee, left foot and right hand. States it itches a lot. She has had similar rashes in the past. Ml Alba NP [address] [place] [address], [address], [facility] [employer] 05/20/2025 13:09:20 OBGyn Episode No OBEpisode recorded.
--- OUTSIDE RECORDS SUMMARY | 2025-07-17 12:36 | XMS_ITS | Continuity of Care Document ---
Author Organization [place] - [employer], [employer] [facility] Address [address] [place] [address] Assessment Encounter Date Assessment Date Assessment LastModified by Organization Details LastModified Time 05/20/2025 05/20/2025 Referral to specialist for eval. Topical as prescribed. Follow up in 1 month to recheck sooner if needed. Not available 05/20/2025 13:08:16 Plan of Treatment Reminders Order Date Submit Date Provider Last Modified By Organization Details Last Modified Time Details Appointments None recorded. Lab None recorded. Referral gastroenter ologist referral - Recent colitis. Patient would like a colonscopy. She is improving with treatment. Eval ordered for diagnostic versus screening colonoscopy 2024 025 JOSE G Puente MD, [facility] [address], [place], [address], 08:23:02 Procedures None recorded. Surgeries None recorded. Imaging None recorded. Medication Orders hydrocortis one 2.5 % topical cream 2024 025 [employer], [address] [place] [address], [id number], 15:24:00 Patient TargetsNo targets recorded. 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 Patient would like a colonscopy. She is improving with treatment. Eval ordered for diagnostic versus screening colonoscopy Referring Physician: Ml Parth, Family Medicine, Encounter Date: 05/20/2025 Results Created Date Observation Date Name Description Value Unit Range Abnormal Flag Note LastModifiedBy Organization Detail LastModifiedTime 04/24/2004/25/2025 COMP. METAB OLIC PANEL (14) glucose 76 mg/dL 70-99 normal Not Available [facility] ([facility]) [address] [place], [address], 04/28/2025 15:07:39 04/24/20 25 04/25/2025 COMP. METAB OLIC PANEL (14) BUN 11 mg/dL 6-24 normal Not Available [facility] ([facility]) [address] [place], [address], 04/28/2025 15:07:39 04/24/20 25 04/25/2025 COMP. METAB OLIC PANEL (14) creatinine 0.82 mg/dL 0.57-1 .00 normal Not Available [facility] ([facility]) [address] [place], [address], 04/28/2025 15:07:39 04/24/20 25 04/25/2025 COMP. METAB OLIC PANEL (14) eGFR 87 mL/mi n/1.7 3 >59 normal Not Available [facility] ([facility]) [address] [place], [address], 04/28/2025 15:07:39 04/24/20 25 04/25/2025 COMP. METAB OLIC PANEL (14) BUN/creatini ne ratio 13 9-23 normal Not Available [facility] ([facility] [address] [place], [address], 04/28/2025 15:07:39 04/24/20 25 04/25/2025 COMP. METAB OLIC PANEL (14) sodium 142 mmol/ L 134-14 4 normal Not Available [facility] ([facility]) [address] [place], [address], 04/28/2025 15:07:39 04/24/20 25 04/25/2025 COMP. METAB OLIC PANEL (14) potassium 4.9 mmol/ L 3.5-5. 2 normal Not Available [facility] ([facility]) [address] [place], [address], 04/28/2025 15:07:39 04/24/20 25 04/25/2025 COMP. METAB OLIC PANEL (14) chloride 102 mmol/ L 96-106 normal Not Available [facility] ([facility]) [address] [place], [address], 04/28/2025 15:07:39 04/24/20 25 04/25/2025 COMP. METAB OLIC PANEL (14) carbon dioxide, total 24 mmol/ L 20-29 normal Not Available [facility] ([facility]) [address] [place], [address], 04/28/2025 15:07:39 04/24/20 25 04/25/2025 COMP. METAB OLIC PANEL (14) calcium 10.0 mg/dL 8.7-10 .2 normal Not Available [facility] ([facility]) [address] [place], [address], 04/28/2025 15:07:39 04/24/20 25 04/25/2025 COMP. METAB OLIC PANEL (14) protein, total 7.3 g/dL 6.0-8. 5 normal Not Available [facility] ([facility]) [address] [place], [address], 04/28/2025 15:07:39 04/24/20 25 04/25/2025 COMP. METAB OLIC PANEL (14) albumin 4.5 g/dL 3.8-4. 9 normal Not Available [facility] ([facility]) [address] [place], [address], 04/28/2025 15:07:39 04/24/20 25 04/25/2025 COMP. METAB OLIC PANEL (14) globulin, total 2.8 g/dL 1.5-4. 5 Not Available [facility] ([facility]) [address] [place], [address], 04/28/2025 15:07:39 04/24/20 25 04/25/2025 COMP. METAB OLIC PANEL (14) bilirubin, total <0.2 mg/dL 0.0-1. 2 Not Available [facility] ([facility]) [address] [place], [address], 04/28/2025 15:07:39 04/24/20 25 04/25/2025 COMP. METAB OLIC PANEL (14) alkaline phosphatase 166 IU/L 44-121 above high normal Not Available [facility] ([facility]) [address] [place], [address], 04/28/2025 15:07:39 04/24/20 25 04/25/2025 COMP. METAB OLIC PANEL (14) AST (SGOT) 17 IU/L 0-40 normal Not Available [facility] ([facility] [address] [place], [address], 04/28/2025 15:07:39 04/24/20 25 04/25/2025 COMP. METAB OLIC PANEL (14) ALT (SGPT) 27 IU/L 0-32 normal Not Available [facility] ([facility] [address] [place], [address], 04/28/2025 15:07:39 04/24/20 25 04/25/2025 LIPID PANEL cholesterol, total 181 mg/dL 100-19 9 normal Not Available [facility] ([facility] [address] [place], [address], 04/28/2025 15:07:40 04/24/20 25 04/25/2025 LIPID PANEL triglyceride s 226 mg/dL 0-149 above high normal Not Available [facility] ([facility]) [address] [place], [address], 04/28/2025 15:07:40 04/24/20 25 04/25/2025 LIPID PANEL HDL cholesterol 40 mg/dL >39 normal Not Available [facility] [address] [place], [address], 04/28/2025 15:07:40 04/24/20 25 04/25/2025 LIPID PANEL VLDL cholesterol raffi 39 mg/dL 5-40 Not Available [facility] ([facility] [address] [place], [address], 04/28/2025 15:07:40 04/24/20 25 04/25/2025 LIPID PANEL LDL chol calc ([facility]) 102 mg/dL 0-99 above high normal Not Available [facility] ([facility] [address] [place], [address], 04/28/2025 15:07:40 04/24/20 25 04/25/2025 LIPID PANEL LDL calc 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 [email or web address] [facility] [address], [place], [address], 05/13/2025 13:52:02 05/09/20 25 05/09/2025 elect randolph lafleur am, routi ne ECG, 12 leads min No observ ation record ed. [email or web address] [facility] [address], [place], [place], [address], 05/13/2025 13:51:39 Result Notes None recorded. Problems Name Problem SNOMED Code Status Onset Date Resolution Date Notes Provider Name and Address Organization Details Recorded Time Migraine 15609193 Active 2023 Ml Alba NP [address] [place] [address], [address], [employer] 14:25:25 Acute exacerbat ion of chronic obstructi ve pulmonary disease 922539272 Completed 202303/02/2025 Ml Alba NP [address] [place] [address], 972[address] 8, [employer] 15:10:44 Insomnia 437051570 Active 2023 Ml Alba NP [address] [place] [address], [address] 8, [employer] 14:25:22 Gastroeso phageal reflux disease 685866924 Active 2023 Ml Alba NP [address] [place] [address], 92526[address] 8, [employer] 14:25:18 Seizure disorder 257994433 Active 2023 Ml Alba NP [address] [place] [address], [address] 8, [place] [employer] 14:25:32 Nicotine dependenc e 61881294 Active 2024 Ml Alba NP [address] [place] [address], 25[address] 8, [employer] 14:37:01 Anxiety 46825102 Active 2024 Ml Alba NP [address] [place] [address], [address] 8, [employer] 5 15:10:49 Chronic pain 54187094 Active 2024 Ml Alba NP [address] [place] [address], 23807[address]604 8, [employer] 5 08:13:35 Pain of left knee joint 092613108280 107 Active 2024 Ml Alba NP [address] [place] [address], 35095[address]684 8, [employer] 5 08:13:23 Body mass index 25-29 - overweigh t 900921138 Active 2024 Ml Alba NP [address] [place] [address], 301[address] 8, [employer] 5 08:13:37 Pain of knee region 9740518211 Active 2024 Ml Alba NP [address] [place] [address], 28867-070 8, [employer] 5 08:13:24 Moderate recurrent major depressio n 62244111 Active 2024 Ml Alba NP [address] [place] [address], 71712-995 8, [employer] 5 08:05:39 Pain of right hand 174165497063 109 Active 2024 Ml Alba NP [address] [place] [address], 10030[address] 8, [employer] 5 08:13:26 Overweigh t in adulthood with body mass index of 25 or more but less than 30 717428756 Completed 202403/23/2025 Ml Alba NP [address] [place] [address], 33221[address] 8, [employer] 5 08:05:45 Pain of bilateral hands 006684859948 07321 Active 2024 Ml Alba NP [address] [place] [address], 50949-447 8, [employer] 08:13:25 Mixed hyperlipi demia 720134672 Active 2024 Ml Alba NP [address] [place] [address], 71879-243 8, [employer] 08:13:33 Rheumatoi d factor detected 404340907 Active 2024 Ml Alba NP [address] [place] [address], 01525-466 8, [employer] 08:13:22 Allergic rhinitis 57478720 Active 2024 Ml Alba NP [address] [place] [address], 51008-906 8, [employer] 08:05:32 Pain in face 59810988 Completed 202406/19/2025 Ml Alba NP [address] [place] [address], 80640-780 8, [employer] 08:05:49 Primary insomnia 2507268 Active 2024 Ml Alba NP [address] [place] [address], 00398-115 8, [employer] 5 08:05:50 Overweigh t in adulthood with body mass index of 25 or more but less than 30 540150945 Completed 202406/19/2025 Ml Alba NP [address] [place] [address], 45510[address]135 8, [employer] 08:05:45 Generaliz ed abdominal pain 214855464 Completed 202406/19/2025 Ml Alba NP [address] [place] [address], 92715-722 8, [employer] 08:05:38 Swollen abdomen 82337958 Completed 202406/19/2025 Ml Alba NP [address] [place] [address], 21855[address] 8, [employer] 5 08:05:52 Colitis 46844932 Completed 202406/19/2025 Ml Alba NP [address] [place], [address], [employer] 5 08:05:34 Eruption 046439875 Completed 202406/19/2025 Ml Alba NP [address] [place], [address], [employer] 5 08:05:36 Problem Notes None recorded. Procedures Surgical History Date Name Laterality Status Provider Name and Address Organization Details Recorded Time Hysterectomy completed [facility] [employer] 07/18/2024 13:36:37 tonsilectomy/magdalene oids completed Occasion. 07/18/2024 13:40:46 Carpal Tunnel Surgery completed Occasion. 07/18/2024 13:40:52 Other completed [employer]. 07/18/2024 13:41:06 Imaging Results None recorded. Procedure Notes None recorded. Medical Equipment None Reported. Allergies Allergen ID Allergen Name Allergen Category Reaction Reaction Severity Criticality Documentation Date Start Date Code Code System Note Provider Name and Address Organization Details Recorded Time 28935 Product containin g penicilli n (product) medicatio n rash Not available Not available 07/18/2024 93078 8001 SN[facility]ED [facility] 13:36:36 Medications Name Sig Start Date [...] Last Updated DateTime 171.45 cm 29.5 kg/m2 96238.5 4 g 95 /min 98 % 98 % 124/74 mm[Hg] Jayne Hudson [employer] 11:06:24 Social History Question Answer Notes LastModified by Organizat ion Details LastModified Time Tobacco Smoking Status Current Every Day Smoker Luzenmanuel lundy, [email or web address] 07/18/2024 13:36:36 Do You Have An Advance [...] Information not available 07/18/2024 What Type Of Utilization Specialist Do You Use? None Information not available 07/18/2024 In The 14 Days Before Symptom Onset, Have You Had Close Contact With A Laboratory-confirm ed COVID-19 While That Case Was Ill? No Information n ot available 09/18/2024 In The 14 Days Before Symptom Onset, Have You Had Close Contact With A Person Who Is Under Investigation For COVID-19 While That Person Was Ill? No [email or web address] Information not available 09/18/2024 Have You Been [...] Or The Highest Degree You Have Received? OT06915-3 Information not available 07/18/2024 Have There Been Any Changes To Your Family Or Social Situation? No Information no t available 07/18/2024 Are There Any Guns Present In Your Home? No Information not available 07/18/2024 Which Of Your Hands Is Dominant? Right Information n ot available 07/18/2024 What Is Your Home Situation? 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 No Information not available 07/18/2024 What Was The Date Of Your Most Recent Tobacco Screening? 05/20/2025 [email or web address] Information not available 05/20/2025 What Is Your [...] Date Was Tobacco Cessation Counseling Provided? 05/20/2025 [email or web address] Information not available 05/20/2025 Have You Recently [...] anxious, or unable to sleep at night)? [id number] Information not available 07/18/2024 Do you have [...] History Condition Response Coronary Artery Disease N Gout N Other N Blood Diseases N Kidney Stones N Hyperthyroidism N Breast Cancer N Blood Transfusion N Emergency room visit since last appointm ent. N Hypothyroidism N Lung Disease N Dermatologic Disorders N Depression Y COPD N Defects or Inherited Disease N Developmental or Behavioral Disorders N Breast Problem N Difficulty Swallowing N Anesthesia Complications N History of STI N Meniere's disease N Anxiety Disorder Y Muscle, Joint, or Bone Problems N Autoimmune disease N Vision or Eye Problems N Arthritis N Polyps N Infertility N Mental Disorder N Congenital Anomalies N Acid Reflux (GERD) N Cancer N Stroke N Neurologic/Epilepsy Y Endometriosis N Bladder or Kidney Problems N High Cholesterol N Liver Disease N Organ Transplant N Psychiatric/Mental Health Condition N Fibromyalgia N Dialysis N Schizophrenia N Headaches N Kidney Disease N Allergies/Hayfever N Heart Problems N Ear or Hearing Problems N Hospitalizations N Learning Disorder N Artificial Joints N Thyroid Problems N GI Problems N Acne N ADD/ADHD N Eating Disorder N Anemia N Constipation N Mental Illness N Ovarian Cancer N Diabetes N Bedwetting N Hepatitis/Liver Disease N Tuberculosis N Eczema N Diverticulitis N Abuse/Domestic Violence N Asthma N Trauma/Violence N Substance Abuse [...] Immunizations Vaccine Type Date Status Note Provider Domingo arnold and Address Organization Details Recorded Time Tdap 03/23/2025 completed Winnie lundy [employer] 03/23/2025 12:05:17 zoster recombinant 03/23/2025 completed Winnie lundy [employer] 03/23/2025 12:05:17 COVID-19, mRNA, LNP-S, PF, 100 mcg/0.5mL dose or 50 mcg/0.25mL dose 09/22/2021 completed Ml Alba NP [address] [place] [address], [address], [employer] 09/18/2024 14:16:28 COVID-19, mRNA, LNP-S, PF, 100 mcg/0.5mL dose or 50 mcg/0.25mL dose 01/13/2021 completed Ml Alba NP [address] [place] [address], [address], [employer] 09/18/2024 14:16:28 Tdap 02/23/2016 anca Alba NP [address] [place] [address], [address], [employer] 09/18/2024 14:16:28 Past Encounters Encounter ID Performer Location Encounter Start Date Encounter Closed Date Diagnosis/Indication Diagnosis SNOMED-CT Code Diagnosis ICD10 Code Diagnosis IMO Codes Diagnosis Note [id number] Ml Alba NP [address] [address] 04/24/2025 08:39:48 04/24/2025 09:50:56 Moderate recurrent major depression 55109635 F33.1 Seizure disorder 1210741 02 G40.909 Mixed hyperlipidemia 267 920417 E78.2 Screening mammography 24 113904 Z12.31 0636253058 Allergic rhinitis 117239 04 J30.9 Overweight in adulthood with body mass index of 25 or more but less than 30 896824543 E66.3 Z68.28 [id number] Ml Alba NP [address] [address] 05/13/2025 11:20:16 05/13/2025 12:00:21 Generalized abdominal pain 432120192 R10.84 291288 Swollen abdomen 01028341 R14.0 94295 [id number] Ml Alba NP [place] [address] 0 05/20/2025 10:57:48 05/20/2025 12:00:38 Colitis 90097488 K52.9 618296 Eruption 521035347 R21 46352 Overweight in adulthood with body mass index of 25 or more but less than 30 389966961 Z68.29 258123 Health Concerns Section Related Observation LastModified by Organization Detai ls LastModified Time None Recorded Concern Status LastModified by Organization Details LastModified Time None Recorded Payers Encounter Date Sequence Insurance Name Policy Number Policy Ferrer Covered Member ID Ferrer Member ID Guarantor Name 05/20/2025 1 [facility] (MEDICAID HMO) Marilee Christa [id number] Marilee Christa Notes Date Note Type Note Provider Name and Address Organization Details Recorded Time 05/20/2025 text/html Patient presents for follow up [...] rashes in the past. Ml Alba NP [address] [place], [address], [facility] [employer] 05/20/2025 13:09:20 OBGyn Episode No OBEpisode recorded.
--- OUTSIDE RECORDS SUMMARY | 2025-07-17 12:36 | XMS_ITS | Clinical Summary ---
Author Organization [facility] Address [address] [place] [address] Care Team Providers Care Electronic Organ Technician Name Role Phone None, Physician Primary Care [...] SDOH Screening 09/10/2024 Influenza Vaccine (#1) 2025 RSV 50+ and (1 - 1 -dose 75+ series) 2048 Haemophilus Influenzae Type B (Hib) Vaccine Aged [...] patient's age to complete this topic Insurance [facility] Care Teams Electronic Organ Technician Relationship Specialty Start Date End Date None, Physician PCP - General 06/01/18
--- OUTSIDE RECORDS SUMMARY | 2025-07-17 12:36 | XMS_ITS | Clinical Summary ---
Author Organization Healthcare Address [address] [id number] Care Team Providers Care Foil Spinner Name Role Phone Ml Alba APRN Primary Care Provider [phone] Allergies Active Allergy Reactions Criticality Noted Date Comments Cephalexin Unknown - Patient st ates they do not know rxn details Low 11/27/2014 Penicillins Other - please docum ent in the comment field,Rash,Unknown - Patient states they do not know rxn details Low 11/27/2014 Tramadol Other - please docum ent in the comment field,Unknown - Patient states they do not know rxn details Low 11/27/2014 Medications amitriptyline (Elavil) 150 MG tablet Take 2 tablets by mouth daily. Active cetirizine (ZyrTEC) 10 MG tablet TAKE 1 TABLET 1 TIME EACH DAY Active DULoxetine (Cymbalta) [address] capsule take 1 capsule 1 time each day 06/29/2025 Active gabapentin (Neurontin) 600 MG tablet take 1 tablet 3 times each day 07/02/2025 Active hydrocortisone 2.5 % cream APPLY A THIN FILM TO THE AFFECTED AREA OF SKIN 2 TIMES EACH DAY Active levETIRAcetam (Keppra) 750 MG tablet TAKE 1 TABLET 2 TIMES EACH DAY FOR SEIZURES 07/02/2025 Active omeprazole (PriLOSEC) [address] capsule TAKE 1 CAPSULE 1 TIME EACH DAY Active Tea Tree 100 % oil Apply to rash twice a day 60 mL 2 07/15/2025 Active celecoxib (CeleBREX) 200 MG capsule Take 1 capsule by mouth 2 times a day. 60 capsule 3 07/15/2025 Active lidocaine (Xylocaine) 5 % ointment Apply to hand joints two to three times per day 50 g 3 07/15/2025 Active Calcium Carbonate-Vit D-Min (Caltrate Bone Health Advanced) 600-800 MG-UNIT tablet Take 1 tablet by mouth daily. 30 tablet 3 07/15/2025 Active Encounters Date Type Department Care Team Description 07/15/2025 2:31 PM EST - 07/15/2025 11:59 PM EST Hospital Encounter [facility] [address] [place] [address] Neck pain; Arthralgia of both hands; Chronic midline low back pain without sciatica Discharge Disposition: Home or Self Care 07/15/2025 1:30 PM EST Consult [facility] [address] [place] [address] Shagufta Fishman MD Arthralgia of both hands (Primary Dx); Rash; Chronic midline low back pain without sciatica; Immunization counseling; Dizziness; Neck pain; ROSIE positive 07/15/2025 Travel from Last 3 Months Immunizations Immunization Administration Dates Next Due Influenza, seasonal, injectable, preservative fr ee 07/15/2025 Tdap 03/23/2025,02/23/2016 Zoster, Recombinant 03/23/2025 Family History Medical History Relation Name Comments COPD Mother Relation Name Status Comments Mother Social History Tobacco Use Types Packs/Day [...] Mass Index 30.59 07/15/2025 12:54 PM EST Plan of Treatment Upcoming Encounters Date Type Department Care Team (Late st Contact Info) Description 10/21/2025 3:00 PM EST Office Visit [facility] [address] [place] [address] Shagufta Fishman MD [address] [place] [address] Health Maintenance Due Date Last Done Comments [facility]-/Child/Adol SDOH Screenings 1973 [facility]- SDOH Screenings 1991 [facility]-Adult SDOH Screenings 1991 [facility]-Hepatitis B Vaccines (1 of 3 - 19+ 3-dose series) 1992 [facility]-Pneumococcal Vaccine: 50 + Years (1 of 2 - PCV) 1992 CT Colonography 2018 Colonoscopy 2018 FIT-DNA 2018 FIT 2018 FOBT 2018 Sigmoidoscopy 2018 [facility]-Colorectal Cancer Screening 2018 [facility]-Breast Cancer Screening 2023 [id number] Vaccine (3 - 2024- season) 2025 09/22/2021, 01/13/2021 [facility]-Zoster Vaccines (2 of 2) 05/18/2025 03/23/2025 [facility]-Depression Screening 07/15/2026 025, 07/15/2025 [facility]-DTaP,Tdap,and Td Vaccine s (3 - Td or Tdap) 03/23/2035 03/23/2025, 02/23/2016 [facility]-HIV Screening Completed 09/09/2019 [facility]-Hepatitis C Screening Completed 09/09/2019 [facility]-Influenza Vaccine Completed 07/15/2025 [facility]-Obesity Intervention Completed 07/15/2025 HPV Vaccines Aged Out No longer eligi ble based on patient's age to complete this topic [facility]-HIB Vaccines Aged Out No longer e ligible based on patient's age to complete this topic [facility]-Hepatitis A Vaccines Aged Out No longer eligible based on patient's age to complete this topic [facility]-IPV Vaccines Aged Out No longer e ligible based on patient's age to complete this topic [facility]-Rotavirus Vaccines Aged Out No lo nger eligible based on patient's age to complete this topic Procedures Procedure Name Priority Date/Time Associated Diagnosis Comments XR PELVIS 1 OR 2 VIEWS Routine 2:56 PM EST Arthralgia of both hands Chronic midline low back pain without sciatica XR LUMBAR SPINE 2 OR 3 VIEWS Routine 07/15/2025 2:56 PM EST Arthralgia of both hands Chronic midline low back pain without sciatica XR HAND WRIST BILATERAL 2 VIEWS Routine 07/15/2025 2:56 PM EST Arthralgia of both hands Chronic midline low back pain without sciatica XR CERVICAL SPINE 2 OR 3 VIEWS Routine 07/15/2025 2:56 PM EST Neck pain SEDIMENTATION RATE, AUTOMATED Routine 07/15/2025 2:26 PM EST Arthralgia of both hands Chronic midline low back pain without sciatica C-REACTIVE PROTEIN, PLASMA Routine 07/15/2025 2:26 PM EST Arthralgia of both hands Chronic midline low back pain without sciatica VITAMIN D 25 HYDROXY Routine 07/15/2025 2:26 PM EST Arthralgia of both hands HEPATITIS C ANTIBODY W/REFLEX TO HCV QUANT PCR Routine 09/09/2019 12:50 PM EST HIV 1/2 ANTIBODY/ANTIGEN SCREEN WITH REFLEX TO HIV I/II DIFFERENTIATION Routine 09/09/2019 12:50 PM EST from Last 3 Months or Most Recently Relevant to Health Maintenance Results * XR Hand and Wrist Bilateral 2 [...] IMG XR PROCEDURES Final Result * XR Pelvis 1 or 2 Views [...] Gary Loredo MD on 07/15/2025 3:28 PM Shagufta Fishman MD IMG XR PROCEDURES Edited [...] Loredo MD on 07/15/2025 3:34 PM Shagufta COOPERG XR PROCEDURES Final Result * XR Cervical [...] - 80.0 ng/mL 07/15/2025 10:26 PM EST [facility] Blood Venous blood specimen / Unknown Venipuncture / Unknown 07/15/2025 2:26 PM EST 07/15/2025 2:26 PM EST Narrative [facility] - 07/15/2025 10:26 PM EST Testing performed on Vasques Respiratory Therapist, standardized against NIST SRM 2972. When testing [...] ORDERABLES Final Res ult Performing Organization Address [facility] Co de Phone Number [facility] [address] [place] [address] * Sedimentation Rate, Automated (07/15/2025 2:26 PM EST) Sedimentation Rate 29 <30 mm/hr 2024 4:21 PM EST [facility] Blood Venous blood specimen / Unknown Venipuncture / Unknown 07/15/2025 2:26 PM EST 07/15/2025 2:26 PM EST Shagufta Fishman MD LAB BLOOD ORDERABLES Final Res ult Performing Organization Address [facility] Phone Number [facility] [address] [place] [address] * (ABNORMAL) C-reactive protein (07/15/2025 2:26 PM EST) Pathologist [facility] CRP, Plasma 9.6(H) <=8.0 mg/L 07/15/2025 4:[address] [facility] Blood Venous blood specimen / Unknown Venipuncture / Unknown 07/15/2025 2:26 PM EST 07/15/2025 2:26 PM EST Narrative [facility] - 07/15/2025 4:21 PM EST This CRP test is appropriate for assessment of infection, systemic inflammation and/or tissue injury. To assess cardiovascular disease risk order high sensitivity CRP (CRPH). Shagufta Fishman MD LAB BLOOD ORDERABLES Final Res ult Performing Organization Address [facility] [address] * HIV 1 & 2 Antibody/Antigen Screen (09/09/2019 12:50 PM EST) Pathologist [facility] HIV 1 Result NONREACTIVE Screening for HIV 1 and 2 antibodies is NONREACTIVE. No confirmatory testing is required. [facility] 09/09/2019 12:5 0 PM EST 09/09/2019 2:19 PM EST Amee Salgado APRN, G[facility]Y LAB BLOOD ORDERABLE S Final Result [facility] * Hepatitis C Antibody (09/09/2019 12:50 PM EST) Hepatitis C Antibody NEGATIVE Reference Range: Negative [facility] 09/09/2019 12:5 0 PM EST 09/09/2019 2:19 PM EST Amee Salgado APRN, [facility] LAB BLOOD ORDERABLE S Final Result [facility] from Last 3 Months or Most Recently Relevant to Health Maintenance Insurance [place] [id number] [facility] MEDICAID Care Teams Foil Spinner Relationship Specialty Start Date End Date Ml Alba APRN [address] [place] [id number] PCP - General 03/17/25
--- OUTSIDE RECORDS SUMMARY | 2025-07-17 12:37 | XMS_ITS | Data Portability ---
Author Organization [facility] & TAWNYA Anguiano ADMIN Address [address] [place] [address] Care Team Providers Care Measurement Technician Name Role Phone ISABELLE JETER Primary Care Provider Assessment No assessment recorded. Plan of Treatment Reminders Order Date Submit Date Provider Last Modified By Organization Details Last Modified Time Details Appointments None recorded. Lab None recorded. Referral None recorded. Procedures None recorded. Surgeries None recorded. Imaging None recorded. Medication Orders gabapentin 800 mg tablet 2023 024 [employer], [address] [place] [address], [id number], 4 12:33:26 ibuprofen 800 mg tablet 2023 024 [employer], [address] [place] [address], [id number], 4 16:02:56 levetiracet am 750 mg tablet 2023 024 [employer], [address] [place] [address], [id number], 4 12:33:27 gabapentin 800 mg tablet 2021 022 [employer], [address] [place] [address], [id number], 2 13:41:08 levetiracet am ER 500 mg tablet,exte nded release 24 hr 2021 022 [employer], [address] [place] [address], [id number], 3 13:53:47 Patient TargetsNo targets recorded. Patient InstructionsNo instructions recorded. Reason for Referral None Reported. Results Created Date Observation Date Name Description Value Unit Range Abnormal Flag Note LastModifiedBy Organization Detail LastModifiedTime 09/30/19 23 09/30/2022 imagi ng inter preta tion No observ ation record ed. [address] [place], [id number], 10/02/2022 12:58:56 09/30/19 23 09/30/2022 imagi ng inter preta tion No observ ation record ed. [address] [place], [address], 10/02/2022 12:59:06 Result Notes None recorded. Problems Name Problem SNOMED Code Status Onset Date Resolution Date Notes Provider Name and Address Organization Details Recorded Time Seizure disorder 622116855 Active 2021 Rosy Nunez DO [address], [place], [address] , [place] - [facility] - [place] & [place] 2 15:01:43 Chronic low back pain 004368803 Active 2021 Rosy Enrique DO [address] [facility], [place], [address] , [place] - [facility] [place] & [place] 2 15:01:53 Pain of right hand 43020564515357 9 Active 2021 Rosy Nunez DO [address], [place], [address] , [place] - [facility] [place] & [place] 2 15:02:01 Carpal tunnel syndrome of right wrist 25673707992142 8 Active 2021 Rosy Nunez DO [address], [place], [address] , [place] - [facility] & [place] 2 11:33:49 Problem Notes None recorded. Procedures Surgical History Date Name Laterality Status Provider Name and Address Organization Details Recorded Time 02/27/20 24 EMG/ Nerve Conduction Study completed Rosy NunezDO [address] , [place], [address], [facility] - [facility] & [place] 02/27/2024 09:38:52 02/29/20 23 EMG/ Nerve Conduction Study completed Rosycira Nunez DO [address] [place], [address], [facility] - [facility] & [place] 02/28/2023 14:08:00 09/10/19 23 Carpal tunnel surgery completed Jenniffer Peggy [place] - [facility] & [place] 02/28/2023 13:54:57 08/31/20 22 EMG/ Nerve Conduction Study completed Rosycira Nunez DO [address] [place], [address], [facility] & [place] 08/31/2022 13:51:32 tonsillectomy completed Rosy Nunez DO [address] [place], [address], [facility] - [facility] & [place] 08/28/2022 14:52:48 hysterectomy completed Rosycira Nunez DO [address] [place], [address], [facility] - [facility] & [place] 08/28/2022 14:52:56 open reduction of fracture of ankle with internal fixation completed [facility] [address] [facility] [address] - [facility] & [place] 08/28/2022 14:53:07 Oral surgery procedure completed Rosy Nunez DO [address] [place], [address], [facility] - [facility] & [place] 08/28/2022 14:53:20 Imaging Results None recorded. Procedure Notes None recorded. Medical Equipment None Reported. Allergies Allergen ID Allergen Name Allergen Category Reaction Reaction Severity Criticality Documentation Date Start Date Code Code System Note Provider Name and Address Organization Details Recorded Time 66917 Product containin g penicilli n (product) medicatio n rash Not available Not available 08/28/2022 85879 8001 SNOMED Rosy Nunez, DO [address], [place], [address], [place] - [facility] & [place] 2 14:50:28 72072 penicilli n G Not available Not available Not available Not available 02/28/2023 7980 RxNorm Jenniffer lundy, [place] - [facility] & [place] 3 13:52:51 Medications Name Sig Start Date [...] index (BMI) Body weight Heart rate Systolic And Diastolic Provider Name and Address Organization Details Last Updated DateTime 02/27/2024 170.18 cm 25.4 kg/m2 02706.68 g 103 /min 116/60 mm[Hg] Jenniffer BOWLING [facility] & [place] 02/27/2024 14:06:35 Date Recorded Body height Body mass index (BMI) Body weight Heart rate Oxygen saturation Oxygen saturation in Arterial blood by Pulse oximetry Systolic And Diastolic Provider Name and Address Organization Details Last Updated DateTime 3 170.18 cm 25.1 kg/m2 66692.2 2 g 105 /min 99 % 99 % 135/80 mm[Hg] Jenniffer BOWLING [facility] & [place] 3 13:50:26 Date Recorded Body height Body mass index (BMI) Body weight Heart rate Systolic And Diastolic Provider Name and Address Organization Details Last Updated DateTime 08/29/2022 170.18 cm 24.2 kg/m2 53148.1 g 117 /min 100/79 mm[Hg] Jenniffer BOWLING [facility] & [place] 08/29/2022 13:04:30 Social History Question Answer Notes LastModified by Organizat ion Details LastModified Time Tobacco Smoking Status Current Every Day Smoker Jenniffer [facility], [facility] & [place] 08/29/2022 13:06:44 Do You Have An Advance [...] or recreational drugs? No Past user, THC [email or web address] Information not available 08/28/2022 Do you or have you ever used smokeless tobacco? [id number] Information not available 08/29/2022 Are you currently employed? No disabled Information not available 02/28/2023 What is your exercise level? Occasional Information not available 08/29/2022 Mental Status Question Answer Note LastModified by Organization D etails LastModified Time Do you feel stressed (tense, restless, nervous, or anxious, or unable to sleep at night)? [id number] Information not available 08/29/2022 Family History Relationship Description Onset Age of this Age Resolved Age Notes LastModified by Organization Details LastModified Time Mother Disorder of thyroid gland [email or web address] Not available 2021 14:51:25 Father Diabetes mellitus Not available 02/26 14:04:15 Medical History Condition Response Anxiety Disorder Y Diabetes N Autoimmune disease Y Vision or Eye Problems Y Arthritis Y Seizures/Epilepsy Y Ear or Hearing Problems Y Back Problems Y Back Pain Y Rheumatoid Arthritis Y Headaches N Obstructive Sleep Apnea N Gynecological HistoryNo gynecological history recorded. Obstetrics History GPAL:G 0 P 0 0 0 0 Past Encounters Encounter ID Performer Location Encounter Start Date Encounter Closed Date Diagnosis/Indication Diagnosis SNOMED-CT Code Diagnosis ICD10 Code Diagnosis IMO Codes Diagnosis Note [id number] Rosy Nunez DO [facility] [address] [facility],[address] [address] 08/29/2022 12:47:17 08/29/2022 13:32:39 Seizure disorder 056798043 G40.909 Chronic condition that is stable with her medication . Will continue the keppra. She needs refills today. No current restrictio ns. Chronic low back pain 27 1649726 M54.50 Chronic condition that is stable. Continue the gabapentin . She needs refills. Pain of right hand 74557 43903 90004 M79.641 Progressiv e right hand pain and numbness. Will order NCV/EMG to rule out an entrapment syndrome. [id number] Rosy Nunez DO [facility] [address] [facility],[address] [address] 08/31/2022 13:32:19 08/31/2022 14:10:08 Pain of right hand 2160569491 77729 M79.641 . [id number] Rosy Nunez DO [facility] [address] [facility],[address] [address] 02/28/2023 13:45:04 02/28/2023 14:15:16 Seizure disorder 646055800 G40.909 Chronic condition that is stable with her medication . Will continue the keppra. She does not need refills today. No current restrictio ns. Chronic low back pain 27 2464943 M54.50 Chronic condition that is stable. Continue the gabapentin . She does not need refills. [id number] Rosy Nunez DO [facility] [address] [facility],[address] [place] [address] 02/27/2024 13:59:18 02/27/2024 14:19:37 Seizure disorder 617692600 G40.909 Chronic condition with breakthrou gh seizures. Will increase her dose of levetirace concepcion today. She will call if any further breakthrou gh events. She does not drive. Chronic low back pain 27 3552199 M54.50 Chronic condition that is stable. Continue [...] Ferrer Member ID Guarantor Name 03/29/2024 1 [facility] (MEDICAID HMO) Marilee Goodwin [id number] Marilee Christa Notes Date Note Type Note [...] things due to pain and weakness of finger waver. She can't sleep as it tends to wake her up. She denies any seizure since her last visit. She is compliant with her keppra. She denies any side effects from her medication.For her LBP she remains on gabapentin. This does seem to work well for her back pain but does not help her hand pain. Rosy Nunez, [address], [place], [address], [facility] - [place] - [place] & [place] 08/29/2022 16:04:37 02/28/2023 text/html Marilee comes in [...] things due to pain and weakness of finger waver. She can't sleep as it tends to wake her up. She denies any seizure since her last visit. She is compliant with her keppra. She denies any side effects from her medication.For her LBP she remains on gabapentin. This does seem to work well for her back pain but does not help her hand pain. Rosy Nunez, DO [address] [facility], [place], [address], [place] - [facility] - [place] & [place] 02/28/2023 16:48:09 02/27/2024 text/html Marilee comes in [...] things due to pain and weakness of finger waver. She can't sleep as it tends to wake her up. She denies any seizure since her last visit. She is compliant with her keppra. She denies any side effects from her medication.For her LBP she remains on gabapentin. This does seem to work well for her back pain but does not help her hand pain. Rosy Nunez, [address], [place], [address], [facility] - [place] - [place] & [place] 02/27/2024 14:22:06 OBGyn Episode No OBEpisode recorded.
--- OUTSIDE RECORDS SUMMARY | 2025-07-17 12:37 | XMS_ITS | Encounter Summary ---
Author Organization Healthcare Address [address] [id number] Care Team Providers Care Rework Machine Operator Name Role Phone Ml Alba APRN Primary Care Provider [phone] Encounter Details Date Type Department Care Team (Latest Contact Info) Description 07/15/2025 Travel Social History Tobacco Use Types Packs/Day Years [...] Questionnaire -9 Score 0 07/15/2025 1:09 PM EST Sia Fournier * How difficult have these problems made it for you to do your work, take care of things at home, or get along with other people? Answer Date of Assessment Author Not difficult at all 07/15/2025 1:09 PM EST Sia Ferguson documented as of this encounter Plan of Treatment Upcoming Encounters Date Type Department Care Team (Late st Contact Info) Description 10/21/2025 3:00 PM EST Office Visit [facility]ties [address], [address] [place] [address] Shagufta Fishman MD [address] [address] documented as of this encounter Visit Diagnoses Not on filedocumented in this encounter Additional Health Concerns Assessment Noted Time PHQ-9 Depression Total Score: 0 07/15/20 25 1:09 PM EST A fall risk assessment has been complete d for the patient 07/15/2025 1:09 PM EST A Body Mass Index follow-up plan has been documented for the patient 07/15/2025 2:15 PM EST documented as of this encounter Care Teams Rework Machine Operator Relationship Specialty Start Date End Date Ml Alba, [employer] DEPARTMENT CHAIR [address] [place] [address] PCP - General 03/17/25 documented as of this encounter
--- OUTSIDE RECORDS SUMMARY | 2025-07-17 12:37 | XMS_ITS | Clinical Summary ---
Author Organization [facility] Address [address] [place] [address] Care Team Providers Care Game Trapper Name Role Phone Ml Alba CECILIA Primary Care Provider [phone] Allergies Active Allergy Reactions Criticality Noted Date [...] to 20 doses. 20 tablet 02/25/2016 Active Encounters Date Type Department Care Team Description 05/13/2025 5:33 PM EDT - 05/13/2025 5:45 PM EDT Emergency [facility]IC EMERGENCY DEPARTMENT [address] [place] [id number] Ruiz Antunez MD Colitis (Primary Dx); Diarrhea, unspecified type Discharge Disposition: Home or Self Care 05/13/2025 Travel from Last 3 Months Social History Tobacco Use Types Packs/Day Years [...] Sign Reading Time Taken Comments Blood Pressure 149/66 05/13/2025 1:31 PM EDT Pulse 111 05/13/2025 1:31 PM EDT Temperature 36.7 C (98 F) 05/13/2025 1:31 PM EDT Respiratory Rate 20 05/13/2025 1:31 PM EDT Oxygen Saturation 97% 05/13/2025 1:31 PM EDT Inhaled Oxygen Concentration - - Weight 79.4 kg (175 lb) 05/13/2025 1:31 PM EDT Height 170.2 cm (5' 7 ) 05/13/2025 1:31 PM EDT Body Mass Index 27.41 05/13/2025 1:31 PM EDT Plan of Treatment Upcoming Encounters Date Type Department Care Team (Late st Contact Info) Description 07/28/2025 10:30 AM EST Office Visit [facility] [address] [facility] [address] [place] [address] Nola Ulrich MD [address] [facility] [address] [place] [address] Health Maintenance Due Date Last Done Comments ANNUAL PHYSICAL 1973 Annual Gynecologic Pelvic and Breast Exam 1973 Pneumococcal Vaccine 50+ (1 of 2 - PCV) 1992 MAMMOGRAM 2013 COLOGUARD 2018 COLON CANCER SCREENING 5 YEA R SIGMOIDOSCOPY 2018 COLONOSCOPY 2018 [address]AL CANCER SCREENING 2018 CT COLONOGRAPHY 2018 FECAL OCCULT BLOOD TEST 2018 FIT Testing (1 year) 2018 INFLUENZA VACCINE 04/10/2025 ZOSTER VACCINE (2 of 2) 05/18/2025 03/23/2025 TDAP/TD VACCINES (3 - Td or Tdap) 03/23/2035 025, 02/23/2016 HEPATITIS C SCREENING Completed 09/09/2019 Procedures Procedure Name Priority Date/Time Associated Diagnosis Comments GASTROINTESTINAL PANEL, PCR (PREFERRED) DOES NOT INCLUDE CDIFF STAT 05/13/2025 5:[address] ABDOMEN PELVIS W CONTRAST STAT 05/13/2025 4:07 PM EDT URINALYSIS, MICROSCOPIC ONLY STAT 05/13/2025 3:58 PM EDT URINALYSIS W/ MICROSCOPIC IF INDICATED (NO CULTURE) STAT 05/13/2025 3:58 PM EDT LIGHT BLUE TOP STAT 05/13/2025 3:48 PM EDT RUCKER TOP STAT 05/13/2025 3:48 PM EDT GOLD TOP - SST STAT 05/13/2025 3:48 PM EDT LAVENDER TOP STAT 05/13/2025 3:48 PM EDT DK GREEN TOP STAT 05/13/2025 3:48 PM EDT CBC AND DIFFERENTIAL STAT 05/13/2025 3:48 PM EDT CBC WITH AUTO DIFFERENTIAL STAT 05/13/2025 3:48 PM EDT LACTIC ACID, PLASMA STAT 05/13/2025 3 :48 PM EDT LIPASE STAT 05/13/2025 3:48 PM EDT COMPREHENSIVE METABOLIC PANEL STAT 05/13/2025 3:48 PM EDT RAINBOW DRAW STAT 05/13/2025 3:48 PM EDT from Last 3 Months Results * Gastrointestinal Panel, PCR - Stool, Per Rectum (05/13/2025 5:32 PM EDT) Campylobacter Not Detected Not Detected [facility] 05/13/2025 7:13 PM EDT [facility] Plesiomonas shigelloides Not Detected Not Detected [facility] 05/13/2025 7:13 PM EDT [facility] LAB[facility] Salmonella Not Detected Not Detected [facility] 05/13/2025 7:13 PM EDT [facility] LAB[facility] Vibrio Not Detected Not Detected [facility] 05/13/2025 7:13 PM EDT [facility] LAB[facility] Vibrio cholerae Not Detected Not Detected [facility] 05/13/2025 7:13 PM EDT [facility] LAB[facility] Yersinia enterocolitica Not Detected Not Detected [facility] 05/13/2025 7:13 PM EDT [facility]AT[facility] LAB[facility]ORY Enteroaggregative E. coli (EAEC) Not Detected Not Detected [facility] 05/13/2025 7:13 PM EDT [facility]AT[facility] LAB[facility]ORY Enteropathogenic E. coli (EPEC) Not Detected Not Detected [facility] 05/13/2025 7:13 PM EDT PS[facility] LAB[facility]ORY Enterotoxigenic E. coli (ETEC) lt/st Not Detected Not Detected [facility] 05/13/2025 7:13 PM EDT [facility] LAB[facility]ORY Shiga-like toxin-producing E. coli (STEC) stx1/stx2 Not Detected Not Detected [facility] 05/13/2025 7:13 PM EDT [facility] LAB[facility] Shigella/Enteroinv asive E. coli (EIEC) Not Detected Not Detected [facility] 05/13/2025 7:13 PM EDT [facility] Cryptosporidium Not Detected Not Detected [facility] 05/13/2025 7:13 PM EDT [facility] LAB[facility] Cyclospora cayetanensis Not Detected Not Detected [facility] 05/13/2025 7:13 PM EDT [facility] Entamoeba histolytica Not Detected Not Detected [facility] 05/13/2025 7:13 PM EDT [facility] Giardia lamblia Not Detected Not Detected [facility] 05/13/2025 7:13 PM EDT [facility] LAB[facility] Adenovirus F40/41 Not Detected Not Detected [facility] 05/13/2025 7:13 PM EDT [facility] LAB[facility] Astrovirus Not Detected Not Detected [facility] 05/13/2025 7:13 PM EDT [facility] LAB[facility] Norovirus GI/GII Not Detected Not Detected [facility] 05/13/2025 7:13 PM EDT [facility] LAB[facility] Rotavirus A Not Detected Not Detected [facility] 05/13/2025 7:13 PM EDT [facility] LAB[facility] Sapovirus (I, II, IV or V) Not Detected Not Detected [facility] 05/13/2025 7:13 PM EDT [facility] LAB[facility] Stool Specimen from rectum / Unknown Collection / Unknown 05/13/2025 5:32 PM EDT 05/13/2025 5:41 PM EDT Scott Weber Jr., PAEugene MICROBIOLOGY - GENERA L ORDERABLES Final Result [facility]
[address] [place] [address], * CT Abdomen Pelvis With Contrast (05/13/2025 4:07 PM EDT) Anatomical Region Laterality Modality Abdomen, Pelvis N/A Computed Tomogra phy 05/13/2025 4:13 PM EDT Impressions 05/13/2025 4:22 PM EDT Mild colitis. Mild cystitis. Electronically Signed: Ganga Dao MD 05/13/2025 4:22 PM EDT Workstation ID: [id number] Narrative 05/13/2025 4:[address] ABDOMEN PELVIS W CONTRAST Date of Exam: 05/13/2025 4:07 PM EDT Indication: abdominal pain, swelling. Comparison: None available. Technique: Axial CT images were obtained of the abdomen and pelvis following the uneventful intravenous administration of iodinated contrast. Reconstructed coronal and sagittal images were also obtained. Automated exposure control and iterative construction methods were used. Findings: Lower Thorax: Lung bases are clear. Peritoneum: No evidence of free air Appendix: Appendix is well seen and is normal. Kidneys: No hydronephrosis. No renal calculi. No focal renal lesions. Ureters: No obstructing calculi or mass. Urinary bladder: Bladder wall is mildly circumferentially thickened Liver: No focal hepatic lesions. Normal size liver. Gallbladder and bile ducts: No gallstones. No bile duct dilatation. Gallbladder has normal appearance. Spleen: Spleen is normal size. No focal splenic lesions. Adrenal glands: Unremarkable. Pancreas: No focal masses. No pancreatic duct dilation. No surrounding inflammation. Abdominal aorta and Vascular Structures: No aneurysmal dilation. No significant atherosclerotic disease. There is poststenotic dilatation at the proximal celiac axis suggesting median arcuate narrowing. Stomach and Bowel: No abnormally dilated loops of bowel. No significant hiatal hernia. No significant bowel wall thickening. Ligament of Treitz has normal anatomic position. Colon demonstrates mild wall thickening The colon is mildly to moderately distended with air and fluid with short segment air-fluid levels in the colon. No evidence of obstruction. Reproductive Organs: Within normal limits. Lymph nodes: No pathologically enlarged lymph nodes. Soft tissues: Unremarkable. Osseous structures: No aggressive focal lytic or sclerotic osseous lesions. Procedure Note Ganga Dao MD - 05/13/2025 CT ABDOMEN PELVIS W CONTRAST Date of Exam: 05/13/2025 4:07 PM EDT Indication: abdominal pain, swelling. Comparison: None available. Technique: Axial CT images were obtained of the abdomen and pelvisfollowing the uneventful intravenous administration of iodinated contrast.Reconstructed coronal and sagittal images were also obtained. Automatedexposure control and iterative construction methods were used. Findings: Lower Thorax: Lung bases are clear. Peritoneum: No evidence of free air Appendix: Appendix is well seen and is normal. Kidneys: No hydronephrosis. No renal calculi. No focal renal lesions. Ureters: No obstructing calculi or mass. Urinary bladder: Bladder wall is mildly circumferentially thickened Liver: No focal hepatic lesions. Normal size liver. Gallbladder and bile ducts: No gallstones. No bile duct dilatation.Gallbladder has normal appearance. Spleen: Spleen is normal size. No focal splenic lesions. Adrenal glands: Unremarkable. Pancreas: No focal masses. No pancreatic duct dilation. No surroundinginflammation. Abdominal aorta and Vascular Structures: No aneurysmal dilation. Nosignificant atherosclerotic disease. There is poststenotic dilatation atthe proximal celiac axis suggesting median arcuate narrowing. Stomach and Bowel: No abnormally dilated loops of bowel. No significanthiatal hernia. No significant bowel wall thickening. Ligament of Treitzhas normal anatomic position. Colon demonstrates mild wall thickening The colon is mildly to moderately distended with air and fluid with shortsegment air-fluid levels in the colon. No evidence of obstruction. Reproductive Organs: Within normal limits. Lymph nodes: No pathologically enlarged lymph nodes. Soft tissues: Unremarkable. Osseous structures: No aggressive focal lytic or sclerotic osseouslesions. IMPRESSION: Mild colitis. Mild cystitis. Electronically Signed: Ganga Dao MD 05/13/2025 4:22 PM EDT Workstation ID: [id number] Scott Weber Jr., PA-C IM CT ORDERABLES Fin al Result * (ABNORMAL) Urinalysis, Microscopic Only - Urine, Clean Catch (05/13/2025 3:58 PM EDT) RBC, UA 0-2 None Seen, 0-2 /HPF 05/13/2025 4:16 PM EDT [facility] WBC, UA 11-20(A) None Seen, 0-2 /HPF 05/13/2025 4:16 PM EDT [facility] Bacteria, UA 1+(A) None Seen /HPF 05/13/2025 4:16 PM EDT [facility] Squamous Epithelial Cells, UA 7-12(A) None Seen, 0-2 /HPF 05/13/2025 4:16 PM EDT [facility] Hyaline Casts, UA 0-2 None Seen /LPF 05/13/2025 4:16 PM EDT [facility] Methodology Automated Microscopy 05/13/2025 4:16 PM EDT [facility] Urine Urine specimen obtained by clean catch procedure / Unknown Collection / Unknown 05/13/2025 3:58 PM EDT 05/13/2025 4:10 PM EDT Ruiz Antunez MD URINE ORDERABLES Final Result [facility]
[address] [place] [address], * (ABNORMAL) Urinalysis With Microscopic If Indicated (No Culture) - Urine, Clean Catch (05/13/2025 3:58 PM EDT) Color, UA Yellow Yellow, Straw 05/13/2025 4:16 PM EDT [facility] Appearance, UA Clear Clear 05/13/2025 4:16 PM EDT [facility] pH, UA 6.0 5.0 - 8.0 05/13/2025 4:16 PM EDT [facility] Specific [place], UA 1.010 1.005 - 1.030 05/13/2025 4:16 PM EDT [facility] Glucose, UA Negative Negative 05/13/2025 4:16 PM EDT [facility] Ketones, UA Negative Negative 05/13/2025 4:16 PM EDT [facility] Bilirubin, UA Negative Negative 05/13/2025 4:16 PM EDT [facility] Blood, UA Negative Negative 05/13/2025 4:16 PM EDT [facility] Protein, UA Negative Negative 05/13/2025 4:16 PM EDT [facility] Leuk Esterase, UA Small (1+)(A) Negative 05/13/2025 4:16 PM EDT [facility] Nitrite, UA Negative Negative 05/13/2025 4:16 PM EDT [facility] Urobilinogen, UA 0.2 E.U./dL 0.2 - 1.0 E.U./dL 05/13/2025 4:16 PM EDT [facility] Urine Urine specimen obtained by clean catch procedure / Unknown Collection / Unknown 05/13/2025 3:58 PM EDT 05/13/2025 4:10 PM EDT us Ruiz Antunez MD URINE ORDERABLES Final Result Performing Organization Address [facility] Co de Phone Number PSYCHIATRIC LABORATORY
[address] [place] [address], [place] [phone] * Rucker Top (05/13/2025 3:48 PM EDT) Extra Tube Hold for add-ons. 05/13/2025 4:31 PM EDT [facility] Comment:Auto resulted. Blood Venipuncture / Unknown 05/13/2025 3:48 PM EDT 05/13/2025 4:22 PM EDT us Ruiz Antunez MD LAB BLOOD ORDER ONLY Final Res ult [facility]
[address] [place] [address], [place] [phone] * Gold Top - SST (05/13/2025 3:48 PM EDT) Extra Tube Hold for add-ons. 05/13/2025 4:31 PM EDT [facility] Comment:Auto resulted. Blood Venipuncture / Unknown 05/13/2025 3:48 PM EDT 05/13/2025 4:22 PM EDT us Ruiz Antunez MD LAB BLOOD ORDER ONLY Final Res ult Performing Organization Address [facility]/ZIP Co de Phone Number PSYCHIATRIC LABORATORY
[address] [place] [address], [place] [phone] * Green Top (Gel) (05/13/2025 3:48 PM EDT) Pathologist [facility] Extra Tube Hold for add-ons. 05/13/2025 4:31 PM EDT [facility] Comment:Auto resulted. Blood Venipuncture / Unknown 05/13/2025 3:48 PM EDT 05/13/2025 4:22 PM EDT us Ruiz Antunez MD LAB BLOOD ORDER ONLY Final Res ult Performing Organization Address [facility] de Phone Number PSYCHIATRIC LABORATORY
[address] [place] [address], [place] [phone] * (ABNORMAL) CBC Auto Differential (05/13/2025 3:48 PM EDT) [facility] WBC 12.34(H) 3.40 - 10.80 10*3/mm3 05/13/2025 4:32 PM EDT [facility] RBC 5.06 3.77 - 5.28 10*6/mm3 05/13/2025 4:32 PM EDT [facility] Hemoglobin 14.0 12.0 - 15.9 g/dL 05/13/2025 4:32 PM EDT [facility] Hematocrit 43.2 34.0 - 46.6 % 05/13/2025 4:32 PM EDT [facility] MCV 85.4 79.0 - 97.0 fL 05/13/2025 4:32 PM EDT [facility] MCH 27.7 26.6 - 33.0 pg 05/13/2025 4:32 PM EDT [facility] MCHC 32.4 31.5 - 35.7 g/dL 05/13/2025 4:32 PM [facility] RDW 14.0 12.3 - 15.4 % 05/13/2025 4:32 PM [facility] RDW-SD 43.3 37.0 - 54.0 fl 05/13/2025 4:32 PM [facility] MPV 9.8 6.0 - 12.0 fL 05/13/2025 4:32 PM EDT [facility] Platelets 316 140 - 450 10*3/mm3 05/13/2025 4:32 PM [facility] Neutrophil % 63.0 42.7 - 76.0 % 05/13/2025 4:32 PM [facility] Lymphocyte % 31.8 19.6 - 45.3 % 05/13/2025 4:32 PM [facility] Monocyte % 4.5(L) 5.0 - 12.0 % 05/13/2025 4:32 PM [facility] Eosinophil % 0.0(L) 0.3 - 6.2 % 05/13/2025 4:32 PM [facility] Basophil % 0.2 0.0 - 1.5 % 05/13/2025 4:32 PM [facility] Immature Grans % 0.5 0.0 - 0.5 % 05/13/2025 4:32 PM [facility] Neutrophils, Absolute 7.78(H) 1.70 - 7.00 10*3/mm3 05/13/2025 4:32 PM EDT [facility] Lymphocytes, Absolute 3.92(H) 0.70 - 3.10 10*3/mm3 05/13/2025 4:32 PM [facility] Monocytes, Absolute 0.55 0.10 - 0.90 10*3/mm3 05/13/2025 4:32 PM EDT [facility] Eosinophils, Absolute 0.00 0.00 - 0.40 10*3/mm3 05/13/2025 4:32 PM EDT [facility] Basophils, Absolute 0.03 0.00 - 0.20 10*3/mm3 05/13/2025 4:32 PM EDT [facility] Immature Grans, Absolute 0.06(H) 0.00 - 0.05 10*3/mm3 05/13/2025 4:32 PM EDT [facility] nRBC 0.0 0.0 - 0.2 /100 WBC 05/13/2025 4:32 PM EDT [facility] Blood Venipuncture / Unknown 05/13/2025 3:48 PM EDT 05/13/2025 4:22 PM EDT us Ruiz Antunez MD LAB BLOOD ORDERABLES Final Res ult Performing Organization Address [facility] Co de Phone Number PS[facility]CHIATRIC LAB[facility]ATORY
[address] [place] [address], [place] [phone] * Lavender Top (05/13/2025 3:48 PM EDT) Extra Tube hold for add-on 05/13/2025 4:31 PM EDT [facility] Comment:Auto resulted Blood Venipuncture / Unknown 05/13/2025 3:48 PM EDT 05/13/2025 4:22 PM EDT us Ruiz Antunez MD LAB BLOOD ORDER ONLY Final Res ult [facility]
[address] [place] [address], [place] [phone] * Light Blue Top (05/13/2025 3:48 PM EDT) Extra Tube Hold for add-ons. 05/13/2025 4:31 PM EDT [facility] Comment:Auto resulted Blood Venipuncture / Unknown 05/13/2025 3:48 PM EDT 05/13/2025 4:22 PM EDT us Ruiz Antunez MD LAB BLOOD ORDER ONLY Final Res ult Performing Organization Address [facility] Co de Phone Number PS[facility]CHIATRIC LABORATORY
[address] [place] [address], [place] [phone] * Lipase (05/13/2025 3:48 PM EDT) Lipase 21 13 - 60 U/L 05/13/2025 4:54 PM EDT [facility] Blood Venipuncture / Unknown 05/13/2025 3:48 PM EDT 05/13/2025 4:22 PM EDT us Ruiz Antunez MD LAB BLOOD ORDERABLES Final Res ult Performing Organization Address [facility] de Phone Number PS[facility]CHIATRIC LABORATORY
[address] [place] [address], [place] [phone] * Lactic Acid, Plasma (05/13/2025 3:48 PM EDT) Pathologist [facility] Lactate 1.6 0.5 - 2.0 mmol/L 05/13/2025 4:54 PM EDT [facility] Comment:Falsely depressed re sults may occur on samples drawn from patients receiving N-Acetylcysteine (NAC) or Metamizole. Blood Venipuncture / Unknown 05/13/2025 3:48 PM EDT 05/13/2025 4:22 PM EDT us Ruiz Antunez MD LAB BLOOD ORDERABLES Final Res ult Performing Organization Address [facility] Co de Phone Number [facility]ORY
[address] [place] [address], [place] [phone] * (ABNORMAL) Comprehensive Metabolic Panel (05/13/2025 3:48 PM EDT) Glucose 102(H) 65 - 99 mg/dL 05/13/2025 4:54 PM [facility] BUN 4.3(L) 6.0 - 20.0 mg/dL 05/13/2025 4:54 PM [facility] Creatinine 0.73 0.57 - 1.00 mg/dL 05/13/2025 4:54 PM [facility] Sodium 141 136 - 145 mmol/L 05/13/2025 4:54 PM [facility] Potassium 3.2(L) 3.5 - 5.2 mmol/L 05/13/2025 4:54 PM [facility] Chloride 106 98 - 107 mmol/L 05/13/2025 4:54 PM [facility] CO2 23.5 22.0 - 29.0 mmol/L 05/13/2025 4:54 PM [facility] Calcium 9.1 8.6 - 10.5 mg/dL 05/13/2025 4:54 PM [facility] Total Protein 7.2 6.0 - 8.5 g/dL 05/13/2025 4:54 PM [facility] Albumin 4.2 3.5 - 5.2 g/dL 05/13/2025 4:54 PM [facility] ALT (SGPT) 18 1 - 33 U/L 05/13/2025 4:54 PM [facility] AST (SGOT) 18 1 - 32 U/L 05/13/2025 4:54 PM [facility] Alkaline Phosphatase 134(H) 39 - 117 U/L 05/13/2025 4:54 PM [facility] Total Bilirubin 0.2 0.0 - 1.2 mg/dL 05/13/2025 4:54 PM [facility] Globulin 3.0 gm/dL 05/13/2025 4:54 PM [facility] Comment:Calculated Result A/G Ratio 1.4 g/dL 05/13/2025 4:54 PM [facility] BUN/Creatinine Ratio 5.9(L) 7.0 - 25.0 05/13/2025 4:54 PM EDT [facility] Anion Gap 11.5 5.0 - 15.0 mmol/L 05/13/2025 4:54 PM EDT [facility] eGFR 99.7 >60.0 mL/min/1.7 3 05/13/2025 4:54 PM EDT [facility] Blood Venipuncture / Unknown 05/13/2025 3:48 PM EDT 05/13/2025 4:22 PM EDT Narrative [facility] - 05/13/2025 4:54 PM EDT GFR Categories in Chronic Kidney Disease (CKD) GFR Category GFR (mL/min/1.73) Interpretation G1 90 or greater Normal or high (1) G2 60-89 Mild decrease (1) G3a 45-59 Mild to moderate decrease G3b 30-44 Moderate to severe decrease G4 15-29 Severe decrease G5 14 or less Kidney failure (1)In the absence of evidence of kidney disease, neither GFR category G1 or G2 fulfill the criteria for CKD. eGFR calculation 2020 CKD-EPI creatinine equation, which does not include race as a factor Ruiz Antunez MD LAB BLOOD ORDERABLES Final Res ult [facility]
[address] [place] [address], [place] [phone] from Last [address] [place] [address] MEDICAID Care Teams Game Trapper Relationship Specialty Start Date End Date Ml Alba APRN [facility] [place] [address] PCP - General Family Medicine 03/27/25
== END 2025-07-17 23:59 | disposition home or self-care (01) ==
LOC: LAB 12:34
PROVIDERS: PCP Nurse Practitioner Family; Visit Provider Nurse Practitioner Family
DX: R19.7 Diarrhea, unspecified (principal)
CPT/HCPCS: 82653; 87506

== ENCOUNTER 2025-08-10 09:27 | Day surgery (SDC) | payer MEDICAID, SELFPAY ==
--- NOTE | 2025-07-31 13:24 | EXP.HP ---
History of Present Illness *Admission Date: 08/10/25 *History of present illness: Mrs. Goodwin is a 49-year-old female who is here for diagnostic colonoscopy. The patient has developed a change in bowel habits with at least 5 or 6 urgent liquid stools daily or more. She is getting nocturnal diarrhea with fecal incontinence. She does report excessive bloating. She did go to the ED where her CAT scan noted mild rectosigmoid colitis. Her recent stool panel from 07/17/2025 showed normal pancreatic fecal elastase (618) and negative PCR microbial pathogen assay. Her stool was Hemoccult negative on 05/09/2025. She reports no family history of colitis or colon cancer. The examination is deemed medically necessary for diagnostic colonoscopy. The patient has been seen, interviewed and examined prior to the procedure by both myself and the anesthesia provider. [facility] Disclaimer: The information contained in this section may have been updated after the patient was seen, as this information can be updated by other users. Medical History Anxiety GERD (gastroesophageal reflux disease) Sleep apnea Carpal tunnel syndrome Neuropathy Seizure disorder Surgical History History of Achilles tendon repair Hx of hand surgery History of tympanostomy tube placement History of hysterectomy History of section Family History Other No significant family history Social History Smoking Status: Current every day smoker tobacco type: cigarettes packs per day: 1 years smoked: 35 second hand exposure: Yes alcohol intake: never substance use type: denies use current occupational status: disabled Travel in the last 8 weeks?: None caffeine: Yes Have you lived/traveled outside [place] in past 30 days?: No Contact w/someone who lives/traveled outside [place] past 30 days?: No Exposure to someone with infectious disease in past 14 days?: No Do you have a fever (greater than 100.4 F or 38 C)?: No Have you tested positive for COVID-19?: No Exposed to someone with COVID-19 in past 14 days?: No Do you have a sore throat?: No Do you have a cough?: No Do you have any weakness?: No Are you experiencing any nausea/vomitting?: No Do you have any diarrhea?: No Are you experiencing any unusual bleeding?: No Do you have any muscle aches/pain?: No Do you have any abdominal pain?: No Are you experiencing loss of taste or smell?: No Other Medical History Have you received the Pneumonia Vaccine: No Review of Systems Review of Systems Review of systems (narrative): Negative *Cardiovascular Comments: Negative *Gastrointestinal Comments: Negative *Genitourinary Comments: Negative *Musculoskeletal Comments: Negative *Neurologic Comments: Negative Meds Home Medications and Allergies Home Medications ?Medication ?Instructions ?Recorded ?Confirmed ?Type amitriptyline 100 mg tablet See Rx Instructions .Route 06/27/23 08/10/25 Rx .COMPLEX #270 tabs omeprazole 40 mg capsule,delayed See Rx Instructions .Route 11/27/23 08/10/25 Rx release .COMPLEX #90 caps gabapentin 600 mg tablet 600 mg PO TID 07/14/25 08/10/25 History levetiracetam 1,000 mg tablet 750 mg PO BID 07/14/25 08/10/25 History (Keppra) peg 3350-electrolytes 236 240 ml PO Q10M colonscopy #4,000 mL 07/28/25 08/04/25 Rx gram-22.74 gram-6.74 gram-5.86 gram solution (Golytely) sodium,potassium,mag sulfates 17.5 See Rx Instructions PO .COMPLEX 07/28/25 08/04/25 Rx gram-3.13 gram-1.6 gram oral soln #354 mL (Suprep Bowel Prep Kit) cetirizine 10 mg tablet (Zyrtec) 10 mg PO DAILY 08/10/25 08/10/25 History duloxetine 20 mg capsule,delayed 0 mg PO HS depression 08/10/25 08/10/25 History release New Prescriptions to Start Prescriptions: Allergies Allergy/AdvReac Type Severity Reaction Status Date / Time cephalexin (From Keflex) Allergy Yeast Verified 08/10/25 10:01 infection paroxetine Allergy Unknown Verified 08/10/25 10:01 allergy reaction Penicillins Allergy Rash Verified 08/10/25 10:01 propoxyphene Allergy unknown Verified 08/10/25 10:01 tramadol Allergy Seizure Verified 08/10/25 10:01 Exam *Routine HEENT Exam Head: Present normocephalic Eye: Present EOMI and PERRL ENT: Present mucous membranes moist *Routine Neck Exam Neck: Present supple *Routine Respiratory Exam Respiratory: Present CTA bilaterally *Routine Cardiovascular Exam Cardiovascular: Present RRR *Routine Abdominal Exam Abdominal: Present soft and normoactive bowel sounds; Absent tenderness *Routine Rectal Exam Rectal:: deferred *Routine Genitalia Exam Genitalia:: deferred *Routine Extremities Exam Extremities: Absent cyanosis, clubbing or edema *Routine Skin Exam Skin: Present warm; Absent rash *Routine Neurological Exam Neurological: Present alert and oriented X3 Assessment and Plan *Assessment and plan (1) Change in bowel habits: Status: Acute Category: Medical Code(s): R19.4 - Change in bowel habit (2) Fecal urgency: Status: Acute Category: Medical Code(s): R15.2 - Fecal urgency (3) Diarrhea: Status: Acute Category: Medical Code(s): R19.7 - Diarrhea, unspecified (4) Nocturnal diarrhea: Status: Acute Category: Medical Code(s): R19.7 - Diarrhea, unspecified (5) Incontinence of feces: Status: Acute Category: Medical Code(s): R15.9 - Full incontinence of feces (6) Bloating: Status: Acute Category: Medical Code(s): R14.0 - Abdominal distension (gaseous) (7) Bright red blood per rectum: Status: Acute Category: Medical Code(s): K62.5 - Hemorrhage of anus and rectum Plan A/P: 1. Change in bowel habits with fecal urgency, diarrhea/nocturnal diarrhea, fecal incontinence, bloating and rectal bleeding is the preprocedural diagnosis. Her CAT scan has shown rectosigmoid colitis. The patient will be anesthetized/sedated using MAC sedation. The patient has been seen and examined. Cardiac and lung assessment prior to the examination is stable. Proceed with planned diagnostic colonoscopy.
[2025-08-04 12:28] VITALS: BMI 29.7
--- NOTE | 2025-08-10 07:11 | P.PCN_ITS ---
[facility] Procedure Note Date: 08/10/25 Time: 11:53 Procedure Note:: Colonoscopy Procedure Report: Colonoscopy with cold snare polypectomy and cold biopsies Endoscopist: Margarito Puente II, MD Referring physician: RAUDEL Regan Date of Procedure: August 10, 2025 Equipment: Olympus [id number] adult colonoscope Sedation: MAC sedation Indication: Mrs. Goodwin is a 49-year-old female who is here for diagnostic colonoscopy. The patient has developed a change in bowel habits with at least 5 or 6 urgent liquid stools daily or more. She is getting nocturnal diarrhea with fecal incontinence. She does report excessive bloating with abdominal tightness and distention. She did go to the ED where her CAT scan noted mild rectosigmoid colitis. Her recent stool panel from 07/17/2025 showed normal pancreatic fecal elastase (618) and negative PCR microbial pathogen assay. Her stool was Hemoccult negative on 05/09/2025. The patient has gained nearly 40 pounds over the last several months. She reports generalized abdominal pain and discomfort. She does have fecal incontinence that occurs nearly every other day. She reports no bright red rectal bleeding but does note mucus with her bowel movements. She does report incomplete defecation. She originally had constipation. She reports no family history of colitis or colon cancer. The examination is deemed medically necessary for diagnostic colonoscopy. Procedure: Prior to the procedure, a history and physical exam was performed, and patient's medications and allergies were reviewed. The risks, benefits and alternatives of the sedation and procedure were discussed with the patient. All questions were answered and informed consent was obtained. The patient was brought to the procedure room. Patient identification and proposed procedure were verified by the physician and the nurse. The patient was placed in a left lateral decubitus position and the scope was passed under direct vision. Throughout the procedure, the patient's blood pressure, pulse, and oxygen saturations were monitored continuously. The colonoscopy was accomplished without difficulty. The patient tolerated the procedure well. Findings: On digital rectal examination there was normal rectal tone. There were no external hemorrhoids. The colonoscope was introduced through the anal canal to the rectum and advanced to the cecum. The ileocecal valve and appendiceal orifice were identified. The scope was advanced a short distance into the ileum which appeared grossly normal. The scope was then withdrawn into the colon. There were 3 colon polyps (transverse x 1 (8 mm), descending x 1 (5 mm) and sigmoid x 1 (4 mm)). All of these were removed via cold snare polypectomy. Random cold biopsies were taken from both the right and the left colon to rule out microscopic colitis. The remaining cecum, ascending, transverse, descending, sigmoid and rectum were grossly normal. There were no other mucosal abnormalities identified. Upon retroflexion within the rectum there were grade 1 internal hemorrhoids. The preparation was fair throughout with [place] Preparation Score of 7 out of 9. The cecal time was 15 minutes. Impression: 1. Colonic polyps x 3 (4, 5 and 8 mm) Plan: I will follow-up the polyp histology and recommend repeat screening/surveillance colonoscopy again in 5 years. I will follow-up the random biopsies to rule out microscopic colitis. We will discuss additional treatment options.
[2025-08-10 09:58] VITALS: BP 113/56; PULSE 99; RESP 18; TEMP 36.6; O2SAT 100
[2025-08-10] MEDS: LACTATED RINGERS 1000ML 1,000 ML 50 ML IV (10:18)
--- NOTE | 2025-08-10 10:21 | P.PNANES_ITS ---
[facility] Disclaimer: The information contained in this section may have been updated after the patient was seen, as this information can be updated by other users. Medical History Anxiety GERD (gastroesophageal reflux disease) Sleep apnea Carpal tunnel syndrome Neuropathy Seizure disorder Surgical History History of Achilles tendon repair Hx of hand surgery History of tympanostomy tube placement History of hysterectomy History of section Family History Other No significant family history Social History Smoking Status: Current every day smoker tobacco type: cigarettes packs per day: 1 years smoked: 35 second hand exposure: Yes alcohol intake: never substance use type: denies use current occupational status: disabled Travel in the last 8 weeks?: None caffeine: Yes Have you lived/traveled outside [place] in past 30 days?: No Contact w/someone who lives/traveled outside [place] past 30 days?: No Exposure to someone with infectious disease in past 14 days?: No Do you have a fever (greater than 100.4 F or 38 C)?: No Have you tested positive for COVID-19?: No Exposed to someone with COVID-19 in past 14 days?: No Do you have a sore throat?: No Do you have a cough?: No Do you have any weakness?: No Are you experiencing any nausea/vomitting?: No Do you have any diarrhea?: No Are you experiencing any unusual bleeding?: No Do you have any muscle aches/pain?: No Do you have any abdominal pain?: No Are you experiencing loss of taste or smell?: No [facility] Anesthesia Checklist Patient Identification Patient Identification: Arm Band and Verbal (Name & ) Structural Data Admitted From: Home Planned Operative Procedure/s: colonscopy Consent for Planned Operative Procedure(s) Verified: Yes Verified Documents: Surgical Consent and History and Physical NPO Status Verified Time NPO: 00:00 Additional verifications Anesthesia Reactions: No Hx Blood Transfusions: No Blood Transfusion Reaction: No Previous Colonoscopy: No Airway Assessment Mallampati Score:: Class II Dentition: Poor Dentition Neurological Assessment Level of Consciousness: Awake, Alert and Appropriate Hx Seizures: Yes Anesthesia Plan Anesthesia Risk discussed: Yes Anesthesia Plan: Verified ASA Class: II Anesthesia Type: MAC
[2025-08-10 11:58] VITALS: BP 111/70; PULSE 93; RESP 18; TEMP 36.1; O2SAT 94
[2025-08-10 12:13] VITALS: BP 112/68; PULSE 84; RESP 18; TEMP 36.1; O2SAT 94
[2025-08-10 12:28] VITALS: BP 115/71; PULSE 87; RESP 18; TEMP 36.1; O2SAT 94
== END 2025-08-10 11:35 | disposition home or self-care (01) ==
PROVIDERS: PCP Nurse Practitioner Family; Visit Provider Internal Medicine Gastroenterology
PROC: 0DJD8ZZ Inspection of Lower Intestinal Tract, Via Natural or Artificial Opening Endoscopic (ICD-10-PCS; CPT 45378; principal; 2025-08-10 13:30)
DX: R19.4 Change in bowel habit (principal); D12.3 Benign neoplasm of transverse colon; D12.4 Benign neoplasm of descending colon; K64.0 First degree hemorrhoids; K63.5 Polyp of colon; R15.2 Fecal urgency; R15.9 Full incontinence of feces; R14.0 Abdominal distension (gaseous); K21.9 Gastro-esophageal reflux disease without esophagitis; K62.5 Hemorrhage of anus and rectum; G47.30 Sleep apnea, unspecified; R56.9 Unspecified convulsions; G62.9 Polyneuropathy, unspecified; F17.210 Nicotine dependence, cigarettes, uncomplicated; F41.9 Anxiety disorder, unspecified; Z90.710 Acquired absence of both cervix and uterus; Z79.899 Other long term (current) drug therapy; Z88.1 Allergy status to other antibiotic agents; Z88.8 Allergy status to other drugs, medicaments and biological substances; Z88.0 Allergy status to penicillin; Z88.5 Allergy status to narcotic agent
CPT/HCPCS: 45380; 45385; J2003; J2704; J7120